=== PATIENT | female | born 1945 | race Caucasian/White ===

== ENCOUNTER 2023-12-10 15:06 | Inpatient (IN) | payer MEDICARE, OTHER, SELFPAY ==
--- NOTE | ~2023-12-10 | CT_ITS ---
EXAMINATION: CT ABDOMEN AND PELVIS WITHOUT CONTRAST CLINICAL INFORMATION: Fever with LFTs COMPARISON: CT chest 12/10/2023 TECHNIQUE: Multidetector volumetric imaging was performed from the superior aspect of the liver through the pubic symphysis. Sagittal and coronal reformatted images were obtained on the technologist's workstation. This CT examination was performed using dose optimization techniques as appropriate, variously including the following: *Automated exposure control *Adjustment of mA and/or kV according to patient size (this includes techniques or standardized protocols for targeted exams where dose is matched to indication/reason for exam; i.e. extremities or head) *Use of iterative reconstruction technique DLP: 599 mGy-cm FINDINGS: LUNG BASES: Small to moderate-sized left pleural effusion is again seen, unchanged when compared to 12/10/2023 LIVER, GALLBLADDER, AND BILIARY TREE: The liver is normal in and shape but demonstrates decreased attenuation consistent with hepatic steatosis. Liver border is minimally nodular raising the question of cirrhosis. No focal hepatic lesion or biliary ductal dilatation is present. The gallbladder is contracted but otherwise unremarkable with no evidence of radiopaque gallstones, gallbladder wall thickening, or obvious pericholecystic inflammatory changes. PANCREAS: Unremarkable. SPLEEN: Unremarkable. ADRENAL GLANDS: Unremarkable. KIDNEYS AND URETERS: The kidneys are normal in size, shape, and attenuation. No hydronephrosis, hydroureter, or calculi seen. No perinephric stranding. BLADDER: Bilateral hip prostheses obscure detail. GASTROINTESTINAL TRACT: Moderate-sized hiatal hernia is present with a large portion of the stomach above the diaphragm, unchanged from prior. The small and large bowel are unremarkable aside from colonic diverticulosis without diverticulitis. The appendix is not identified but there is no evidence of appendicitis.. ABDOMINAL WALL: There is a small right inguinal hernia containing only fat. Air in left abdominal and right abdominal wall likely from subcutaneous injections. LYMPH NODES: No retroperitoneal lymphadenopathy. VASCULAR: Minimal calcific atherosclerotic changes are present in the aorta and vessels. There is no evidence of an abdominal aortic aneurysm. PELVIC VISCERA: The uterus and adnexa are unremarkable. OSSEOUS STRUCTURES: Marked degenerative changes are present throughout the spine with scoliosis convex to the right. Bilateral hip prostheses are present. CT/CT abdomen pelvis wo IV con IMPRESSION: 1. A cause for the patient's fever and elevated LFTs has not been found. 2. Incidental note made of hepatic steatosis, possible cirrhosis, stable left pleural effusion, moderate-sized hiatal hernia, colonic diverticulosis without diverticulitis and degenerative changes in the spine with scoliosis. Fleischner guidelines were followed.
--- NOTE | ~2023-12-10 | CT_ITS ---
EXAMINATION: CT HEAD WITHOUT CONTRAST CLINICAL INFORMATION: Altered sensorium. COMPARISON: None available. TECHNIQUE: Contiguous axial imaging was performed from the skull base to vertex without intravenous administration of contrast. This CT examination was performed using dose optimization techniques as appropriate, variously including the following: *Automated exposure control *Adjustment of mA and/or kV according to patient size (this includes techniques or standardized protocols for targeted exams where dose is matched to indication/reason for exam; i.e. extremities or head) *Use of iterative reconstruction technique DLP: 847 mGy-cm FINDINGS: The ventricles and sulci are enlarged consistent with diffuse atrophy. No visualized masses or midline shift are seen. There is no intra-axial or extra-axial hemorrhage. There are no fluid collections. Decreased attenuation is seen in the periventricular white matter compatible with chronic small vessel ischemic disease. The baker-white discrimination is preserved. Parenchymal calcifications within the basal ganglia and brainstem. The included paranasal sinuses and mastoid air cells are well aerated. The calvarium is intact. CT/CT head/brain wo IV con IMPRESSION: No intracranial hemorrhage or mass effect. Generalized atrophy and chronic small vessel white matter ischemic changes.
--- NOTE | ~2023-12-10 | XR_ITS ---
EXAMINATION: XR WRIST, RIGHT CLINICAL INFORMATION: Fall, right wrist pain COMPARISON: None available. TECHNIQUE: PA, lateral, and oblique views of the right wrist. FINDINGS: The bones and soft tissues are normal. No fracture. Alignment is anatomic. There is narrowing of the radiocarpal joint. No erosions or abnormal soft tissue calcifications. XR/XR wrist RT 2V IMPRESSION: No acute process. Degenerative changes.
--- NOTE | ~2023-12-10 | XR_ITS ---
EXAMINATION: XR CHEST CLINICAL INFORMATION: Hypoxia COMPARISON: None available. TECHNIQUE: AP portable view of the chest was obtained. FINDINGS: There is elevation of the left hemidiaphragm with the appearance of a large hiatal hernia. An underlying region of airspace disease in this location cannot be excluded. There are small lung volumes. No pneumothorax identified. I cannot rule out a left pleural effusion on provided images. No evidence of pulmonary edema. Question calcific tendinitis versus old fracture involving the proximal right humerus. XR/XR chest 1V IMPRESSION: Small lung volumes with elevation of left hemidiaphragm and question large hiatal hernia. Left lower lobe disease not excluded. No evidence of pulmonary edema.
--- NOTE | ~2023-12-10 | CT_ITS ---
EXAMINATION: CT CHEST WITHOUT CONTRAST CLINICAL INFORMATION: Question pneumonia at left base COMPARISON: Chest radiograph earlier today TECHNIQUE: Multidetector volumetric CT imaging of the chest was done. Axial MIP volume rendering provided. Sagittal and coronal reformatted images were obtained. This CT examination was performed using dose optimization techniques as appropriate, variously including the following: *Automated exposure control *Adjustment of mA and/or kV according to patient size (this includes techniques or standardized protocols for targeted exams where dose is matched to indication/reason for exam; i.e. extremities or head) *Use of iterative reconstruction technique DLP: 376 mGy-cm FINDINGS: LUNGS AND PLEURA: There is marked motion artifact greatly interfering with diagnostic quality. Small to moderate-sized left pleural effusion is present with associated left lower lobe atelectasis/infiltrate. MEDIASTINUM: The mediastinum is normal. CORONARY ARTERY CALCIFICATION: None visualized on this study. AXILLA/CHEST WALL: No lymphadenopathy. UPPER ABDOMEN: Moderate-sized hiatal hernia is present. OSSEOUS STRUCTURES: There are acute minimally displaced fractures involving the left eighth and ninth lateral ribs. CT/CT chest wo IV con IMPRESSION: Acute left eighth and ninth rib fractures with small to moderate-sized left pleural effusion and associated left lower lobe atelectasis/infiltrate. Fleischner guidelines were followed.
--- NOTE | ~2023-12-10 | CT_ITS ---
EXAMINATION: CT THORACIC AND LUMBAR SPINE WITHOUT CONTRAST CLINICAL INFORMATION: Status post fall with back pain COMPARISON: None TECHNIQUE: A multidetector CT acquisition of the lumbar spine is obtained without contrast. This CT examination was performed using dose optimization techniques as appropriate, variously including the following: *Automated exposure control *Adjustment of mA and/or kV according to patient size (this includes techniques or standardized protocols for targeted exams where dose is matched to indication/reason for exam; i.e. extremities or head) *Use of iterative reconstruction technique DLP: 1419 mGycm FINDINGS: THORACIC: No acute fracture or chronic malalignment. Vertebral body heights are preserved. There is smooth mid to lower thoracic dextrocurvature and preserved sagittal alignment. Trace anterolisthesis at T1-T2. Multilevel disc height loss, most pronounced and severe along the concavity of the dextro scoliosis on the left at T6-T7 through T7-T8. Mineralization of the intervertebral disc spaces and ligamentum flavum. Please note canal patency is not well assessed on this examination due to inherent limitations of CT without intrathecal contrast. There are multilevel disc bulges/protrusions and facet arthrosis without high-grade spinal canal stenosis, within limitations of CT. Multilevel moderate to severe mid to lower thoracic neural foraminal stenosis, most pronounced at T7-T8. Redemonstrated intrathoracic herniation and organoaxial positioning of the stomach. Partially imaged small left pleural effusion. Calcific plaque of the aortic arch and carotid bifurcations. LUMBAR: No evidence of acute fracture or traumatic malalignment. S-shaped lumbar scoliosis with rightward curvature of the upper lumbar spine and leftward curvature of the lower lumbar spine. Slight right lateral listhesis at L3-L4. Preserved sagittal alignment. Trace retrolisthesis at L2-L3 and L4-L5. Multilevel disc desiccation with disc height loss most pronounced and severe along the concavity of the scoliotic curvature on the left at L2-L3 and L3-L4 and on the right at L4-L5 and L5-S1 with multilevel vacuum disc phenomenon and scattered endplate Schmorl's nodes. Please note canal patency is not well assessed on this examination due to inherent limitations of CT without intrathecal contrast. Within these limitations, multilevel degenerative changes with level by level detail are as follows: L1-L2: Disc osteophyte complex without spinal canal or neural foraminal stenosis. L2-L3: Disc osteophyte complex eccentric to the left with mild facet arthrosis. No spinal canal stenosis. Left subarticular zone narrowing. Moderate left neural foraminal stenosis with mass effect along the exiting left L2 nerve root. Minimal right neural foraminal narrowing. L3-L4: Disc osteophyte complex eccentric to the left with moderate to advanced facet arthrosis and ligamentum flavum thickening. Apparent mild to moderate spinal canal and subarticular zone narrowing. Severe left neural foraminal stenosis with compression of the exiting and extraforaminal left L3 nerve root and moderate right neural foraminal stenosis with lesser impingement upon the exiting right L3 nerve root. L4-L5: Disc osteophyte complex and moderate bilateral facet arthrosis. Apparent mild spinal canal and subarticular zone narrowing. Severe right neural foraminal stenosis with compression of the exiting and extraforaminal right L4 nerve root. Trace amount of extruded air is noted within the right neural foramen. Moderate to severe left neural foraminal stenosis with impingement upon the exiting left L4 nerve root. L5-S1: Disc osteophyte complex with prominent right greater than left lateral disc osteophytes and moderate facet arthrosis with ligamentum flavum thickening. Apparent mild spinal canal and subarticular zone narrowing with mass effect along the traversing S1 nerve roots. Moderate to severe right neural foraminal stenosis with impingement upon the exiting and extraforaminal right L5 nerve root and mild to moderate left neural foraminal stenosis with impingement upon the exiting/extra foraminal left L5 nerve root. There is moderate fatty atrophy of the paraspinal musculature. Colonic diverticulosis. Aortobiiliac calcific atherosclerosis. The abdominal aorta is of normal contour and caliber. Scattered aortobiiliac calcific atherosclerosis. Mild degenerative changes of the sacroiliac joints. Atrophy of the right and likely of the left gluteus minimus and right iliopsoas muscles. Streak artifact from bilateral hip arthroplasties. CT/CT thoracic spine wo IV con IMPRESSION: 1. No acute osseous injury or traumatic malalignment in the thoracolumbar spine. 2. Redemonstrated intrathoracic herniation and organoaxial positioning of the stomach. 3. Partially imaged small left pleural effusion. 4. Spondylitic disease thoracic and lumbar spine would be better assessed on MRI. In the thoracic spine, no significant spinal canal stenosis, noting multilevel [id number] neural foraminal narrowing in the mid to lower thoracic spine. S-shaped lumbar scoliosis with lumbar spondylosis contributing to up to apparent mild to moderate L3-L4 spinal canal stenosis. Subarticular zone narrowing at L5-S1 with impression upon the traversing S1 nerve roots. Multilevel moderate to severe neural foraminal narrowing in the mid to lower lumbar spine with mass effect along several exiting nerve roots.
[2023-12-10 15:17] VITALS: BP 140/80; BP 171/97; PULSE 106; PULSE 99; RESP 16; TEMP 38.6; O2SAT 91; O2SAT 97; BMI 29.6
[2023-12-10 15:29] VITALS: BP 171/97; PULSE 106; RESP 16; TEMP 38.6; O2SAT 95
--- NOTE | 2023-12-10 15:43 | PC.NURSE ---
Pt comes to ED today via EMS from nursing facility with suspicion of UTI/Sepsis. Pt was found by staff today to be confused and weak this morning--Pt with dementia as baseline. Febrile at 101.5 rectally. Pt is alert to day and person. Labs to be drawn. Awaiting ED provider.
[2023-12-10 16:00] VITALS: BP 171/97; PULSE 106; RESP 16; TEMP 38.6; O2SAT 95
--- NOTE | 2023-12-10 16:16 | ED.FEMALEGU ---
HPI - Female Genitourinary General Chief complaint: Urogenital-Female Stated complaint: Sepsis criteria, smells of UTI, hot to touch Time Seen by Provider: 12/10/23 16:10 History of Present Illness HPI Narrative: Patient is an 78-year-old female with a history of dementia presents today with having fever generalized malaise weakness confusion. Has a previous history of urinary tract infection in the past. No allergies noted. No coughing or congestion. Patient from long term. Related Data Allergies Allergy/AdvReac Type Severity Reaction Status Date / Time No Known Allergies Allergy Verified 12/10/23 15:22 Review of Systems Review of Systems: Positive generalized malaise weakness unable to provide detailed review of systems Yes all other systems are reviewed and are negative [facility] Past Medical History Attestation statement: The following information was validated with the patient. Social History Social History Smoked in Last 30 Days: No Use of substances other than those prescribed or required for medical reasons: No Advance Directives: Yes Advance Directives on File: Yes Advance Directives Date on File: 12/10/23 Do you have a plan to hurt others: No Plan Physical Exam Vital Signs: Vital Signs: Last Vital Signs Temp 98 F 12/10/23 17:33 Pulse 99 12/10/23 17:33 Resp 14 12/10/23 17:33 BP 137/55 L 12/10/23 17:33 Pulse Ox 93 12/10/23 17:33 O2 Del Method Room Air 12/10/23 17:33 BMI result Body Mass Index 29.6 Appearance: Alert. Oriented X3. No acute distress. Eyes: Pupils equal, round and reactive to light. ENT: Pharynx normal. Neck: Normal inspection. Neck supple. No lymph nodes noted. No crepitus CVS: Normal heart rate and rhythm. Pulses normal. Normal S1 and S2 Respiratory: No respiratory distress. Breath sounds normal. No Wheezing. No rales Abdomen: Soft and nontender. No rigidity. No distention. good BS x4 Skin: Skin warm and dry. Normal skin color. Normal skin turgor. Extremities: No lower extremity edema. Neurovascular intact to all extremities. No Lacerations. No Rash Neuro: Oriented X 1. No motor deficit. No sensory deficit. Moving all extermities. No slurred speech Medications Administered Discontinued Medications Generic Name Dose Route Start Last Admin Trade Name Gabo PRN Reason Stop Dose Admin Acetaminophen 975 mg 12/10/23 16:14 12/10/23 16:42 Acetaminophen 325 Mg Tablet PO 12/10/23 16:15 975 mg ONCE ONE Administration Sodium Chloride 1,000 mls @ 999 mls/hr 12/10/23 16:15 12/10/23 18:24 Ns IV 12/10/23 17:15 Infused .Q1H1M KEKE Infusion Ceftriaxone Sodium 1 gm/ 50 mls @ 100 mls/hr 12/10/23 16:16 12/10/23 18:25 Sodium Chloride IV 12/10/23 16:45 Infused ONCE ONE Infusion Medical Decision Making Medical Decision Making [facility] Narrative: Patient presented with fever generalized malaise weakness. Urine did not show any acute evidence of infection. Patient's lactate is less than 2 there is no evidence for severe sepsis. IV fluid was given chest x-ray showed a question infiltrate. A CT of the chest was done. The CT was positive for a left lower lobe infiltrate. Patient's curb 65 score is high as patient is 78 years old, has confusion. Given patient has an infiltrate will admit patient for pneumonia. Hospitalist consulted on the case. Patient's COVID flu RSV were all negative. Differential Diagnosis Differential Diagnoses: The differential diagnosis associated with the presentation includes Pneumonia UTI Admission/Observation Consideration of admission/observation: Escalation of care including admission/observation considered Consult Healthcare Provider Management of the patient was discussed with: Hospitalist Lab Data [facility] Lab Attestation statement: I reviewed the patient's lab results. 12/10/23 16:19 12/10/23 16:19 Labs: Lab Results 12/10/23 12/10/23 12/10/23 Range/Units 16:18 16:19 16:45 WBC 13.8 H (4.8-10.8) X10*3/uL RBC 3.43 L (4.20-5.50) X10*6/uL Hgb 12.3 (12.0-16.0) g/dl Hct 36.5 L (37.0-47.0) % MCV 106.4 H (80.0-98.0) fL MCH 35.9 H (27.0-33.0) pg MCHC 33.7 (31.0-35.0) g/dl RDW 13.0 (11.0-16.0) % Plt Count 345 (160-400) X10*3/uL MPV 9.5 (9.4-12.3) fL Immature Gran % (Auto) 0.5 H (0.0-0.4) % Neut % (Auto) 85.3 H (45-73) % Lymph % (Auto) 4.1 L (20-40) % [place] % (Auto) 9.9 (2-11) % Eos % (Auto) 0.1 (0-4) % Baso % (Auto) 0.1 (0-2) % Lymph # (Auto) 0.6 L (1.2-4.9) X10*3/uL [place] # (Auto) 1.4 H (0.1-1.2) X10*3/uL Eos # (Auto) 0.0 (0.0-0.4) X10*3/uL Baso # (Auto) 0.0 (0.0-0.2) X10*3/uL Abs Immat Gran (auto) 0.07 H (0.00-0.03) X10*3/uL Absolute Neuts (auto) 11.7 H (2.0-8.3) x10*3/uL Absolute Nucleated RBC 0.000 (0.0-0.012) X10*3/uL Nucleated RBC % (auto) 0.0 (0.0-0.2) /100WBC PT 12.1 (11.1-13.3) SEC INR 1.0 (0.9-1.1) APTT 29.0 (26.0-36.8) SEC Sodium 138 (135-145) mmol/L Potassium 4.4 (3.3-5.1) mmol/L Chloride 102 (96-108) mmol/L Carbon Dioxide 25 (22-29) mmol/L Anion Gap 15 (12-20) BUN 16 (9-16) mg/dL Creatinine 0.72 (0.5-1.4) mg/dL Estim Creat Clear Calc 65.3 Estimated GFR > 60 Random Glucose 118 H (60-115) mg/dL Lactic Acid 1.0 (0.5-2.0) mmol/L Calcium 9.5 (8.4-10.2) mg/dL Total Bilirubin 1.1 H (0.0-1.0) mg/dL Urine Color Dark Yellow Urine Appearance Clear Urine pH 6.0 (5.0-9.0) Ur Specific [place] 1.025 (1.005-1.025) Urine Protein 30 (1+) H (Neg-Trace) mg/dL Urine Glucose (UA) Negative (Negative) mg/dL Urine Ketones 15 (Negative) mg/dL Urine Blood Negative (Negative) Urine Nitrite Negative (Negative) Ur Leukocyte Esterase Negative (Negative) Urine RBC 0-2 (0-2) /HPF Urine WBC 0-5 (0-5) /HPF Ur Squamous Epith Cells 3-5 (0-2) /HPF Urine Bacteria None Seen (None Seen) Hyaline Casts 0-2 (0-2) /LPF Influenza Type A (PCR) NEGATIVE (Negative) Influenza Type B (PCR) NEGATIVE (Negative) RSV RNA Qual (PCR) NEGATIVE (Negative) SARS-CoV-2 RNA (RT-PCR) NEGATIVE (Negative) Independent Interpretation I performed an independent interpretation of an: EKG, Plain X-Ray (Grossly negative) and CT Scan (I reviewed CT scan of the chest which showed a possible infiltrate) Radiology Impression Discussion of test interpretation with radiology: I have reviewed the radiologist's reading. External Record Review External record reviewed: Outpatient record Chronic Conditions Dementia Critical Care Time Critical Care Time Critical Care Time: No Discharge Plan Discharge Clinical Impression: Urinary tract infection Patient Disposition: Admitted As Inpatient Print Language: Estonian
[2023-12-10 16:27] LABS: Basophils Percent Auto 0.1 % (0-2); Eosinophils Percent Auto 0.1 % (0-4); Hematocrit 36.5 % (37.0-47.0); Hemoglobin 12.3 g/dl (12.0-16.0); Imm Gran Abs Auto 0.07 X10*3/uL (0.00-0.03); Imm Gran Pct Auto 0.5 % (0.0-0.4); Lymphocytes Absolute Auto 0.6 X10*3/uL (1.2-4.9); Lymphocytes Percent Auto 4.1 % (20-40); MANUAL DIFF FLAG NO; Mean Corpuscular HGB Conc 33.7 g/dl (31.0-35.0); Mean Corpuscular Hemoglobin 35.9 pg (27.0-33.0); Mean Corpuscular Volume 106.4 fL (80.0-98.0); Mean Platelet Volume 9.5 fL (9.4-12.3); Monocytes Absolute Auto 1.4 X10*3/uL (0.1-1.2); Monocytes Percent Auto 9.9 % (2-11); Neutrophils Absolute Auto 11.7 x10*3/uL (2.0-8.3); Neutrophils Percent Auto 85.3 % (45-73); Platelet Count 345 X10*3/uL (160-400); Red Blood Count 3.43 X10*6/uL (4.20-5.50); White Blood Count 13.8 X10*3/uL (4.8-10.8)
[2023-12-10 16:28] LABS: Appearance Urine Clear; Color Urine Dark Yellow; Glucose Urine UA Negative (Negative); Leukocyte Esterase Urine Negative (Negative); Nitrite Urine Negative (Negative); Specific Gravity - Urine 1.025 (1.005-1.025); UMIC TRIGGER UACC YES; Urine Blood Negative (Negative); Urine Ketones 15 mg/dL (Negative); Urine Protein 30 (1+) mg/dL (Neg-Trace)
[2023-12-10 16:33] LABS: Bacteria Urine None Seen (None Seen); Hyaline Casts Urine 0-2 /LPF (0-2); RBC Urine 0-2 /HPF (0-2); WBC Urine 0-5 /HPF (0-5)
[2023-12-10] MEDS: 0.9 % Sodium Chloride 1,000 ML 999 ML IV (16:41)
[2023-12-10 16:42] LABS: Prothrombin Time 12.1 SEC (11.1-13.3)
[2023-12-10] MEDS: Acetaminophen 325 MG TABLET 975 MG PO (16:42)
[2023-12-10 16:43] LABS: Anion Gap 15 (12-20); Bilirubin Total 1.1 mg/dL (0.0-1.0); Blood Urea Nitrogen 16 mg/dL (9-16); Calcium 9.5 mg/dL (8.4-10.2); Carbon Dioxide 25 mmol/L (22-29); Chloride 102 mmol/L (96-108); Creatinine Clr Calc Pharmacy 65.3; Estimated Glomerular Filt Rate > 60; Glucose Random 118 mg/dL (60-115); Potassium 4.4 mmol/L (3.3-5.1); Sodium 138 mmol/L (135-145)
[2023-12-10 16:47] VITALS: BP 188/85; PULSE 99; RESP 18; O2SAT 94
[2023-12-10] MEDS: cefTRIAXone sodium 1 GM in 0.9 % Sodium Chloride 50 ML IV (16:48)
[2023-12-10 17:33] VITALS: BP 137/55; PULSE 99; RESP 14; TEMP 36.6; O2SAT 93
[2023-12-10 17:49] LABS: Influenza A PCR NEGATIVE (Negative); Influenza B PCR NEGATIVE (Negative); Resp Syncy Virus RNA Qual PCR NEGATIVE (Negative); SARS COV2 PCR INHOUSE NEGATIVE (Negative)
--- NOTE | 2023-12-10 22:09 | P.HPHOSP_ITS ---
History of Present Illness Date of Service: 12/10/23 Chief Complaint: Fever and confusion This is a 78-year-old female with pertinent history of Alzheimer's dementia, hypothyroidism, gastroesophageal reflux who was sent from independent living facility for evaluation of fever and confusion. Patient does not know why she is at the facility. Unable to provide history. Patient is only oriented to self. Disoriented to place and time. Unable to obtain review of systems. Does have a history of UTI. In the emergency department, patient was found to be septic and imaging concerning for pneumonia with effusion. Patient was given IV crystalloids and initiated on empiric IV antibiotics in the ER. Review of Systems 2 Review of Systems: Yes Unobtainable due to mental condition and Unobtainable due to mental status PMFSH Medical History Acute encephalopathy Pneumonia Sepsis Pertinent family history: Unable to obtain Social History Smoked in Last 30 Days: No Use of substances other than those prescribed or required for medical reasons: No Advance Directives: Yes Advance Directives on File: Yes Advance Directives Date on File: 12/10/23 Do you have a plan to hurt others: No Plan Meds Allergies Allergy/AdvReac Type Severity Reaction Status Date / Time No Known Allergies Allergy Verified 12/10/23 15:22 Physical Exam 2 Vital Signs and Narrative: Vital Signs: Last Vital Signs Temp 98 F 12/10/23 17:33 Pulse 99 12/10/23 17:33 Resp 14 12/10/23 17:33 BP 137/55 L 12/10/23 17:33 Pulse Ox 93 12/10/23 17:33 O2 Del Method Room Air 12/10/23 17:33 BMI result Body Mass Index 29.6 Elderly female Neck supple, no JVD Regular rate and rhythm, S1-S2 heard Left-sided crackles present Abdomen soft nontender, no guarding, no rigidity Patient is awake, alert and oriented to self, disoriented to place, time and person ; no focal motor deficit Psych: Normal mood No pedal edema Results Labs 12/10/23 16:19 12/10/23 16:19 Labs: Laboratory Results - last 24 hr 12/10/23 12/10/23 12/10/23 16:18 16:19 16:45 MCV 106.4 H MCH 35.9 H MCHC 33.7 RDW 13.0 Plt Count 345 MPV 9.5 Immature Gran % (Auto) 0.5 H Neut % (Auto) 85.3 H Lymph % (Auto) 4.1 L [place] % (Auto) 9.9 Eos % (Auto) 0.1 Baso % (Auto) 0.1 Lymph # (Auto) 0.6 L [place] # (Auto) 1.4 H Eos # (Auto) 0.0 Baso # (Auto) 0.0 Abs Immat Gran (auto) 0.07 H Absolute Neuts (auto) 11.7 H Absolute Nucleated RBC 0.000 Nucleated RBC % (auto) 0.0 PT 12.1 INR 1.0 APTT 29.0 Anion Gap 15 Estim Creat Clear Calc 65.3 Estimated GFR > 60 Random Glucose 118 H Lactic Acid 1.0 Calcium 9.5 Total Bilirubin 1.1 H Urine Color Dark Yellow Urine Appearance Clear Urine pH 6.0 Ur Specific [place] 1.025 Urine Protein 30 (1+) H Urine Glucose (UA) Negative Urine Ketones 15 Urine Blood Negative Urine Nitrite Negative Ur Leukocyte Esterase Negative Urine RBC 0-2 Urine WBC 0-5 Ur Squamous Epith Cells 3-5 Urine Bacteria None Seen Hyaline Casts 0-2 Influenza Type A (PCR) NEGATIVE Influenza Type B (PCR) NEGATIVE RSV RNA Qual (PCR) NEGATIVE SARS-CoV-2 RNA (RT-PCR) NEGATIVE Imaging Radiologist's Impressions: Impressions Chest X-Ray 12/10/23 15:45 IMPRESSION: Small lung volumes with elevation of left hemidiaphragm and question large hiatal hernia. Left lower lobe disease not excluded. No evidence of pulmonary edema. Chest CT 12/10/23 19:35 IMPRESSION: Acute left eighth and ninth rib fractures with small to moderate-sized left pleural effusion and associated left lower lobe atelectasis/infiltrate. Fleischner guidelines were followed. Assessment and Plan (1) Sepsis: Status: Acute (2) Pneumonia: Status: Acute (3) Acute encephalopathy: Status: Acute Plan This is a 78-year-old female with pertinent history of Alzheimer's dementia, hypothyroidism, gastroesophageal reflux who was sent from independent living facility for evaluation of fever and confusion. #. Sepsis due to left-sided pneumonia: Resuscitated with IV crystalloids. Initiating empiric IV ceftriaxone and IV azithromycin. Lactic acid and blood culture obtained. Also has a left pleural effusion, likely parapneumonic. May need thoracic surgery consult if does not improve. #. Acute metabolic encephalopathy in the setting of above: Monitor mentation #. Gastroesophageal reflux disease: On PPI #. Mixed hyperlipidemia: On statin #. Hypothyroidism: On Synthroid #. Alzheimer's dementia: Maintain sleep-wake cycle Med rec pending DVT prophylaxis: Lovenox Full code Admit as inpatient and will require two night minimum hospital stay for IV antibiotics (as above), which is not possible in a lesser acute setting. Quality Stroke Does the patient have a stroke diagnosis?: No VTE Prior VTE?: No VTE Risk Level:: Medical - moderate - high VTE Device Contraindication: Treatment Not Indicated VTE Drug Contraindication: N/A - Med Ordered
[2023-12-10] MEDS: 0.9 % Sodium Chloride Flush 3 ML SYRINGE IVFLUSH (23:47)
[2023-12-10] MEDS: Azithromycin 500 MG in 0.9 % Sodium Chloride 250 ML 125 MG IV (23:47)
[2023-12-10] MEDS: Enoxaparin Sodium 40 MG/0.4 ML SYRINGE SUBCUT (23:47)
[2023-12-10 23:56] VITALS: BP 164/67; PULSE 95; RESP 20; TEMP 36.8; O2SAT 94
[2023-12-11] VITALS: TEMP 37.9
[2023-12-11 01:30] VITALS: BP 146/83; PULSE 95; RESP 20; TEMP 37.4; O2SAT 94
[2023-12-11 06:05] LABS: MANUAL DIFF FLAG NO
[2023-12-11 06:07] LABS: Basophils Percent Auto 0.3 % (0-2); Hematocrit 35.2 % (37.0-47.0); Imm Gran Abs Auto 0.04 X10*3/uL (0.00-0.03); Imm Gran Pct Auto 0.3 % (0.0-0.4); Lymphocytes Absolute Auto 0.7 X10*3/uL (1.2-4.9); Lymphocytes Percent Auto 5.9 % (20-40); Mean Corpuscular HGB Conc 34.1 g/dl (31.0-35.0); Mean Corpuscular Hemoglobin 35.6 pg (27.0-33.0); Mean Corpuscular Volume 104.5 fL (80.0-98.0); Mean Platelet Volume 10.1 fL (9.4-12.3); Monocytes Absolute Auto 1.5 X10*3/uL (0.1-1.2); Monocytes Percent Auto 11.6 % (2-11); Neutrophils Absolute Auto 10.2 x10*3/uL (2.0-8.3); Neutrophils Percent Auto 81.9 % (45-73); Platelet Count 315 X10*3/uL (160-400); Red Blood Count 3.37 X10*6/uL (4.20-5.50); Red Cell Distribution Width 12.9 % (11.0-16.0); White Blood Count 12.5 X10*3/uL (4.8-10.8)
[2023-12-11 06:46] LABS: Anion Gap 14 (12-20); Blood Urea Nitrogen 9 mg/dL (9-16); Carbon Dioxide 22 mmol/L (22-29); Chloride 104 mmol/L (96-108); Creatinine Clr Calc Pharmacy 70.2; Estimated Glomerular Filt Rate > 60; Glucose Random 120 mg/dL (60-115); Potassium 3.6 mmol/L (3.3-5.1); Sodium 136 mmol/L (135-145)
[2023-12-11 06:47] LABS: Calcium 8.8 mg/dL (8.4-10.2)
[2023-12-11 07:57] VITALS: BP 149/75; PULSE 90; RESP 18; TEMP 37.4; O2SAT 95
[2023-12-11 08:59] LABS: Alanine Aminotransferase 15 U/L (0-31); Albumin Level 3.6 g/dL (3.5-5.0); Alkaline Phosphatase 77 U/L (39-117); Aspartate Amino Transferase 22 U/L (5-31); Bilirubin Direct 0.4 mg/dL (0.0-0.5); Bilirubin Total 0.9 mg/dL (0.0-1.0); Total Protein 6.9 g/dL (6.5-8.0)
--- NOTE | 2023-12-11 09:08 | MHC.CM.PN ---
Addendum entered by Zulma Baugh RN 12/11/23 12:26: [facility] will hold a bed for patient per ARRON Persaud. If patient dc's over the weekend call Lauryn Cortes nursing jewel supervisor 7a-7p @ [phone]. Addendum entered by Zulma Baugh RN 12/11/23 12:09: Referral faxed to [facility] @ [phone]. Liaison is Jeannette [phone]. Addendum entered by Zulma Baugh RN 12/11/23 11:36: CM spoke w/ Georgiana Burton @ [facility] [phone]. Georgiana requesting referral to [facility]. Patient has 7 complimentary days to use prior to return to [facility]. Original Note: RESEARCH ASSOCIATE PROFESSOR completed w/ daughter/HCP Gunjan via telephone. Patient w/ dx lewy body dementia. IMM verbally delivered. Copy left at bedside. Patient comes from [facility]. Daughter reports she ambulates w/ a walker, but has needed 1 assist to get up lately. Staff assists w/ ADL's. PCP: Abigail Srinivasan CHIEF OF PRODUCTION HCP on file. DP: Goal is return to [facility] via family transport. May need PT eval. CM will continue to follow.
[2023-12-11] MEDS: 0.9 % Sodium Chloride Flush 3 ML SYRINGE IVFLUSH ×2 (09:17→17:13)
--- NOTE | 2023-12-11 09:44 | P.PNIM_ITS ---
Subjective Subjective Date of Service: 12/11/23 Interval History: confused Physical Exam 2 Vital Signs: Vital Signs: Last Vital Signs Temp 99.4 F 12/11/23 07:57 Pulse 90 12/11/23 07:57 Resp 18 12/11/23 07:57 BP 149/75 H 12/11/23 07:57 Pulse Ox 95 12/11/23 07:57 O2 Del Method Room Air 12/11/23 07:57 BMI result Body Mass Index 29.6 lethargic oriented to person only, poor insight, left side tender Objective Data Active Medications Acetaminophen (Acetaminophen 325 Mg Tablet) 650 mg PO Q6H PRN PRN Reason: Pain, Mild (Pain Scale 1-3), fever or headache Calcium Carbonate (Calcium Carbonate 750 Mg Tab.Chew) 750 mg PO Q4H PRN PRN Reason: Heartburn Enoxaparin Sodium (Enoxaparin Sodium 40 Mg/0.4 Ml Syringe) 40 mg SUBCUT Q24H [facility] Last Admin: 12/10/23 23:47 Dose: 40 mg Documented By: NATALYA Ceftriaxone Sodium 1 gm/ (Sodium Chloride) 50 mls @ 100 mls/hr IV Q24H [facility] Azithromycin 500 mg/ Sodium (Chloride) 250 mls @ 125 mls/hr IV Q24H [facility] Last Infusion: 12/11/23 01:54 Dose: Infused Documented By: ROMIE Magnesium Hydroxide (Milk Of Magnesia 30 Ml Oral.Susp) 30 ml PO DAILY PRN PRN Reason: Constipation Melatonin (Melatonin 3 Mg Tablet) 6 mg PO BEDTIME PRN PRN Reason: Insomnia Omeprazole (Omeprazole 20 Mg Capsule.Dr) 20 mg PO DAILY [facility] Ondansetron HCl (Ondansetron Hcl 4 Mg/2 Ml Vial) 4 mg IVPUSH Q8H PRN PRN Reason: Nausea and Vomiting Sodium Chloride (0.9 % Sodium Chloride Flush 3 Ml Syringe) 3 ml IVFLUSH QSHIFT [facility] Last Admin: 12/11/23 09:17 Dose: 3 ml Documented By: ELISA Labs 12/11/23 05:15 12/11/23 05:15 Labs: Laboratory Results - last 24 hr 12/10/23 12/10/23 12/10/23 16:18 16:19 16:45 MCV 106.4 H MCH 35.9 H MCHC 33.7 RDW 13.0 Plt Count 345 MPV 9.5 Immature Gran % (Auto) 0.5 H Neut % (Auto) 85.3 H Lymph % (Auto) 4.1 L Tra[place] % (Auto) 9.9 Eos % (Auto) 0.1 Baso % (Auto) 0.1 Lymph # (Auto) 0.6 L [place] # (Auto) 1.4 H Eos # (Auto) 0.0 Baso # (Auto) 0.0 Abs Immat Gran (auto) 0.07 H Absolute Neuts (auto) 11.7 H Absolute Nucleated RBC 0.000 Nucleated RBC % (auto) 0.0 PT 12.1 INR 1.0 APTT 29.0 Anion Gap 15 Estim Creat Clear Calc 65.3 Estimated GFR > 60 Random Glucose 118 H Lactic Acid 1.0 Calcium 9.5 Total Bilirubin 1.1 H Direct Bilirubin AST ALT Alkaline Phosphatase Total Protein Albumin Urine Color Dark Yellow Urine Appearance Clear Urine pH 6.0 Ur Specific [place] 1.025 Urine Protein 30 (1+) H Urine Glucose (UA) Negative Urine Ketones 15 Urine Blood Negative Urine Nitrite Negative Ur Leukocyte Esterase Negative Urine RBC 0-2 Urine WBC 0-5 Ur Squamous Epith Cells 3-5 Urine Bacteria None Seen Hyaline Casts 0-2 Influenza Type A (PCR) NEGATIVE Influenza Type B (PCR) NEGATIVE RSV RNA Qual (PCR) NEGATIVE SARS-CoV-2 RNA (RT-PCR) NEGATIVE 12/11/23 05:15 MCV 104.5 H MCH 35.6 H MCHC 34.1 RDW 12.9 Plt Count 315 MPV 10.1 Immature Gran % (Auto) 0.3 Neut % (Auto) 81.9 H Lymph % (Auto) 5.9 L [place] % (Auto) 11.6 H Eos % (Auto) 0.0 Baso % (Auto) 0.3 Lymph # (Auto) 0.7 L [place]ill # (Auto) 1.5 H Eos # (Auto) 0.0 Baso # (Auto) 0.0 Abs Immat Gran (auto) 0.04 H Absolute Neuts (auto) 10.2 H Absolute Nucleated RBC 0.000 Nucleated RBC % (auto) 0.0 PT INR APTT Anion Gap 14 Estim Creat Clear Calc 70.2 Estimated GFR > 60 Random Glucose 120 H Lactic Acid Calcium 8.8 D Total Bilirubin 0.9 Direct Bilirubin 0.4 AST 22 ALT 15 Alkaline Phosphatase 77 Total Protein 6.9 Albumin 3.6 Urine Color Urine Appearance Urine pH Ur Specific [place] Urine Protein Urine Glucose (UA) Urine Ketones Urine Blood Urine Nitrite Ur Leukocyte Esterase Urine RBC Urine WBC Ur Squamous Epith Cells Urine Bacteria Hyaline Casts Influenza Type A (PCR) Influenza Type B (PCR) RSV RNA Qual (PCR) SARS-CoV-2 RNA (RT-PCR) 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, hypothyroid, gerd, presented with ams, fever sepsis due to pneumonia complicated by acute metabolic encephalopathy due to recent 9th and 10th rib fractures from frequent falls due to dementia amanda [place] follow up cultures CTH for recent falls lewy body and likely etoh dementia at risk for delerium, monitor etoh depenedence monitor for withdrawal hypothryoid synthroid dvt prophylaxis - lovenox full code reason for continued hospitalization: ams, fevers Quality Stroke Does the patient have a stroke diagnosis?: No VTE Prior VTE?: No VTE Risk Level:: Medical - moderate - high VTE Device Contraindication: Treatment Not Indicated VTE Drug Contraindication: N/A - Med Ordered
--- NOTE | 2023-12-11 09:54 | PHA.MEDREC ---
Addendum entered by Balbina Escobar RPh 12/11/23 10:06: reviewed Original Note: Pharmacy Consult ? Medication Reconciliation Pharmacy has completed the medication reconciliation. Obtained med list from patient's living facility from nursing. Fixed doses to match history.
[2023-12-11] MEDS: Ferrous Sulfate 324 MG TABLET.DR PO (12:08)
--- NOTE | 2023-12-11 13:17 | MHC.CLN ---
NUTRITION CONSULT FOR SKIN INTEGRITY. PATIENT WITH REDNESS TO BUTTOCK. NO OPEN AREAS NOTE. DIET=REGULAR. NO ADDITIONAL NUTRITION INTERVENTIONS AT THIS TIME
[2023-12-11 15:16] VITALS: BP 149/81; PULSE 98; RESP 16; TEMP 36.8; O2SAT 95
[2023-12-11] MEDS: cefTRIAXone sodium 1 GM in 0.9 % Sodium Chloride 50 ML IV (17:13)
--- NOTE | 2023-12-11 18:36 | PC.NURSE ---
Pt's son brought in medical records from another facility. Spoke to [place] in medical records and was told to send them to switchboard labeled with patient's name.
[2023-12-11 21:53] VITALS: BP 160/75; PULSE 100; RESP 16; TEMP 37; O2SAT 93
[2023-12-11] MEDS: Nystatin Cream 15 GM TUBE 1 APPL TOPICAL (21:56)
[2023-12-11] MEDS: Enoxaparin Sodium 40 MG/0.4 ML SYRINGE SUBCUT (22:01)
[2023-12-11] MEDS: Azithromycin 500 MG in 0.9 % Sodium Chloride 250 ML 125 MG IV (22:07)
[2023-12-11 23:49] VITALS: TEMP 36.8
[2023-12-12] MEDS: Levothyroxine Sodium 88 MCG TABLET PO (06:10)
[2023-12-12 07:06] LABS: Hematocrit 35.6 % (37.0-47.0); Mean Corpuscular HGB Conc 33.7 g/dl (31.0-35.0); Mean Corpuscular Hemoglobin 35.2 pg (27.0-33.0); Mean Corpuscular Volume 104.4 fL (80.0-98.0); Mean Platelet Volume 10.3 fL (9.4-12.3); Platelet Count 311 X10*3/uL (160-400); Red Blood Count 3.41 X10*6/uL (4.20-5.50); Red Cell Distribution Width 12.9 % (11.0-16.0); White Blood Count 15.4 X10*3/uL (4.8-10.8)
[2023-12-12 07:42] LABS: Anion Gap 14 (12-20); Blood Urea Nitrogen 8 mg/dL (9-16); Calcium 8.9 mg/dL (8.4-10.2); Carbon Dioxide 22 mmol/L (22-29); Chloride 103 mmol/L (96-108); Creatinine Clr Calc Pharmacy 71.2; Estimated Glomerular Filt Rate > 60; Glucose Fasting 149 mg/dL (60-99); Potassium 3.2 mmol/L (3.3-5.1); Sodium 136 mmol/L (135-145)
[2023-12-12 08:00] VITALS: BP 142/72; PULSE 95; RESP 17; TEMP 37.1; O2SAT 95
[2023-12-12] MEDS: Atorvastatin Calcium 40 MG TABLET PO (08:40)
[2023-12-12] MEDS: Omeprazole 20 MG CAPSULE.DR PO (08:40)
[2023-12-12] MEDS: Cholecalciferol (Vitamin D3) 25 MCG TABLET PO (08:40)
[2023-12-12] MEDS: Nystatin Cream 15 GM TUBE 1 APPL TOPICAL ×2 (08:41→22:11)
[2023-12-12] MEDS: Donepezil HCl 5 MG TABLET PO (08:41)
[2023-12-12] MEDS: 0.9 % Sodium Chloride Flush 3 ML SYRINGE IVFLUSH ×3 (08:41→22:17)
--- NOTE | 2023-12-12 09:16 | HO.PM.IMPN ---
Subjective Subjective Date of Service: 12/12/23 Interval History: confused Physical Exam Vital Signs: Vital Signs: Last Vital Signs Temp 98.7 F 12/12/23 08:00 Pulse 95 12/12/23 08:00 Resp 17 12/12/23 08:00 BP 160/75 H 12/11/23 21:53 Pulse Ox 95 12/12/23 08:00 O2 Del Method Room Air 12/12/23 08:00 BMI result Body Mass Index 29.6 lethargic oriented to person only, poor insight, left side tender Objective Data Active Medications Acetaminophen (Acetaminophen 325 Mg Tablet) 650 mg PO Q6H PRN PRN Reason: Pain, Mild (Pain Scale 1-3), fever or headache Atorvastatin Calcium (Atorvastatin Calcium 40 Mg Tablet) 40 mg PO DAILY [facility] Last Admin: 12/12/23 08:40 Dose: 40 mg Documented By: DOMI Calcium Carbonate (Calcium Carbonate 750 Mg Tab.Chew) 750 mg PO Q4H PRN PRN Reason: Heartburn Donepezil HCl (Donepezil Hcl 5 Mg Tablet) 5 mg PO DAILY [facility] Last Admin: 12/12/23 08:41 Dose: 5 mg Documented By: DOMI Enoxaparin Sodium (Enoxaparin Sodium 40 Mg/0.4 Ml Syringe) 40 mg SUBCUT Q24H [facility] Last Admin: 12/11/23 22:01 Dose: 40 mg Documented By: LEXII Ferrous Sulfate (Ferrous Sulfate 324 Mg Tablet.Dr) 324 mg PO Q48H [facility] Last Admin: 12/11/23 12:08 Dose: 324 mg Documented By: ELISA Ceftriaxone Sodium 1 gm/ (Sodium Chloride) 50 mls @ 100 mls/hr IV Q24H [facility] Last Infusion: 12/11/23 18:07 Dose: Infused Documented By: ELISA Azithromycin 500 mg/ Sodium (Chloride) 250 mls @ 125 mls/hr IV Q24H [facility] Last Infusion: 12/12/23 00:14 Dose: Infused Documented By: LEXII Levothyroxine Sodium (Levothyroxine Sodium 88 Mcg Tablet) 88 mcg PO DAILY@0600 [facility] Last Admin: 12/12/23 06:10 Dose: 88 mcg Documented By: LEXII Magnesium Hydroxide (Milk Of Magnesia 30 Ml Oral.Susp) 30 ml PO DAILY PRN PRN Reason: Constipation Melatonin (Melatonin 3 Mg Tablet) 6 mg PO BEDTIME PRN PRN Reason: Insomnia Nystatin (Nystatin Cream 15 Gm Tube) 1 appl TOPICAL BID [facility]; Protocol Last Admin: 12/12/23 08:41 Dose: 1 appl Documented By: DOMI Omeprazole (Omeprazole 20 Mg Capsule.Dr) 20 mg PO DAILY [facility] Last Admin: 12/12/23 08:40 Dose: 20 mg Documented By: DOMI Ondansetron HCl (Ondansetron Hcl 4 Mg/2 Ml Vial) 4 mg IVPUSH Q8H PRN PRN Reason: Nausea and Vomiting Potassium Chloride (Potassium Chloride Er 20 Meq Tab.Er.Prt) 40 meq PO ONCE ONE Stop: 12/12/23 09:15 Sodium Chloride (0.9 % Sodium Chloride Flush 3 Ml Syringe) 3 ml IVFLUSH QSHIFT [facility] Last Admin: 12/12/23 08:41 Dose: 3 ml Documented By: DOMI Vitamin D (Cholecalciferol (Vitamin D3) 25 Mcg Tablet) 25 mcg PO DAILY [facility] Last Admin: 12/12/23 08:40 Dose: 25 mcg Documented By: DOMI Labs 12/12/23 05:36 12/12/23 05:36 Labs: Laboratory Results - last 24 hr 12/12/23 05:36 MCV 104.4 H MCH 35.2 H MCHC 33.7 RDW 12.9 Plt Count 311 MPV 10.3 Absolute Nucleated RBC 0.000 Nucleated RBC % (auto) 0.0 Anion Gap 14 Estim Creat Clear Calc 71.2 Estimated GFR > 60 Fasting Glucose 149 H Calcium 8.9 Microbiology Microbiology Results: Microbiology 12/10/23 16:45 Blood Culture - Preliminary Blood - Venous No growth after 24 hours. 12/10/23 16:19 Blood Culture - Preliminary Blood - Venous No growth after 24 hours. 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, hypothyroid, gerd, presented with ams, fever sepsis due to pneumonia complicated by acute metabolic encephalopathy due to recent 9th and 10th rib fractures from frequent falls due to dementia amanda [place] follow up cultures follow up cth macrocytosis check tsh, b12, folate lewy body and likely etoh dementia at risk for delerium, monitor etoh depenedence monitor for withdrawal hypothryoid synthroid dvt prophylaxis - lovenox full code reason for continued hospitalization: ams, fevers Quality Stroke Does the patient have a stroke diagnosis?: No VTE Prior VTE?: No VTE Risk Level:: Medical - moderate - high VTE Device Contraindication: Treatment Not Indicated VTE Drug Contraindication: N/A - Med Ordered
[2023-12-12] MEDS: Potassium Chloride Packet 20 MEQ PACKET 40 MEQ PO (11:11)
[2023-12-12] MEDS: Acetaminophen 325 MG TABLET 650 MG PO (11:11)
[2023-12-12 15:16] VITALS: BP 144/79; PULSE 100; RESP 16; TEMP 37; O2SAT 95
[2023-12-12] MEDS: cefTRIAXone sodium 1 GM in 0.9 % Sodium Chloride 50 ML IV (16:13)
[2023-12-12] MEDS: Enoxaparin Sodium 40 MG/0.4 ML SYRINGE SUBCUT (22:13)
[2023-12-12] MEDS: Azithromycin 500 MG in 0.9 % Sodium Chloride 250 ML 125 MG IV (22:18)
[2023-12-12 22:53] VITALS: BP 137/72; PULSE 100; RESP 17; TEMP 37.3; O2SAT 94
[2023-12-13] VITALS (8 sets, daily range): BP systolic 134–180; BP diastolic 60–93; PULSE 88–100; RESP 14–17; TEMP 36.6–38.7; O2SAT 94–97
[2023-12-13] MEDS: Acetaminophen 325 MG TABLET 650 MG PO ×3 (00:01→21:25)
[2023-12-13] MEDS: Melatonin 3 MG TABLET 6 MG PO (00:02)
[2023-12-13] MEDS: Levothyroxine Sodium 88 MCG TABLET PO (06:13)
[2023-12-13 06:31] LABS: Anion Gap 14 (12-20); Blood Urea Nitrogen 13 mg/dL (9-16); Calcium 8.9 mg/dL (8.4-10.2); Carbon Dioxide 22 mmol/L (22-29); Chloride 102 mmol/L (96-108); Creatinine Clr Calc Pharmacy 72.3; Estimated Glomerular Filt Rate > 60; Glucose Fasting 133 mg/dL (60-99); Magnesium 2.1 mg/dL (1.6-2.6); Potassium 3.7 mmol/L (3.3-5.1); Sodium 134 mmol/L (135-145)
[2023-12-13 06:32] LABS: Hematocrit 34.7 % (37.0-47.0); Hemoglobin 11.5 g/dl (12.0-16.0); Mean Corpuscular HGB Conc 33.1 g/dl (31.0-35.0); Mean Corpuscular Hemoglobin 34.7 pg (27.0-33.0); Mean Corpuscular Volume 104.8 fL (80.0-98.0); Mean Platelet Volume 10.5 fL (9.4-12.3); Platelet Count 311 X10*3/uL (160-400); Red Blood Count 3.31 X10*6/uL (4.20-5.50); Red Cell Distribution Width 13.1 % (11.0-16.0); White Blood Count 13.3 X10*3/uL (4.8-10.8)
[2023-12-13 06:53] LABS: TSH reflex Free T4 0.74 uIU/mL (0.32-4.0)
[2023-12-13 07:09] LABS: Vitamin B12 1997 pg/mL (200-900)
[2023-12-13] MEDS: Omeprazole 20 MG CAPSULE.DR PO (09:02)
[2023-12-13] MEDS: Atorvastatin Calcium 40 MG TABLET PO (09:02)
[2023-12-13] MEDS: 0.9 % Sodium Chloride Flush 3 ML SYRINGE IVFLUSH ×3 (09:02→20:49)
[2023-12-13] MEDS: Nystatin Cream 15 GM TUBE 1 APPL TOPICAL ×2 (09:02→20:49)
[2023-12-13] MEDS: Donepezil HCl 5 MG TABLET PO (09:02)
[2023-12-13] MEDS: Cholecalciferol (Vitamin D3) 25 MCG TABLET PO (09:02)
[2023-12-13] MEDS: Ferrous Sulfate 324 MG TABLET.DR PO (09:05)
--- NOTE | 2023-12-13 09:08 | P.PNIM_ITS ---
Subjective Subjective Date of Service: 12/13/23 Interval History: back pain Physical Exam 2 Vital Signs: Vital Signs: Last Vital Signs Temp 97.8 F 12/13/23 08:00 Pulse 88 12/13/23 08:00 Resp 14 12/13/23 08:00 BP 143/93 H 12/13/23 08:00 Pulse Ox 97 12/13/23 08:00 O2 Del Method Room Air 12/13/23 08:00 BMI result Body Mass Index 29.6 lethargic oriented to person only, poor insight, left side tender, diffuse weakness Objective Data Active Medications Acetaminophen (Acetaminophen 325 Mg Tablet) 650 mg PO Q6H PRN PRN Reason: Pain, Mild (Pain Scale 1-3), fever or headache Last Admin: 12/13/23 00:01 Dose: 650 mg Documented By: LEXII Atorvastatin Calcium (Atorvastatin Calcium 40 Mg Tablet) 40 mg PO DAILY [facility] Last Admin: 12/12/23 08:40 Dose: 40 mg Documented By: DOMI Calcium Carbonate (Calcium Carbonate 750 Mg Tab.Chew) 750 mg PO Q4H PRN PRN Reason: Heartburn Donepezil HCl (Donepezil Hcl 5 Mg Tablet) 5 mg PO DAILY [facility] Last Admin: 12/12/23 08:41 Dose: 5 mg Documented By: DOMI Enoxaparin Sodium (Enoxaparin Sodium 40 Mg/0.4 Ml Syringe) 40 mg SUBCUT Q24H [facility] Last Admin: 12/12/23 22:13 Dose: 40 mg Documented By: LEXII Ferrous Sulfate (Ferrous Sulfate 324 Mg Tablet.) 324 mg PO Q48H [facility] Last Admin: 12/11/23 12:08 Dose: 324 mg Documented By: ELISA Ceftriaxone Sodium 1 gm/ (Sodium Chloride) 50 mls @ 100 mls/hr IV Q24H [facility] Last Infusion: 12/12/23 16:48 Dose: Infused Documented By: DOMI Azithromycin 500 mg/ Sodium (Chloride) 250 mls @ 125 mls/hr IV Q24H [facility] Last Infusion: 12/13/23 00:19 Dose: Infused Documented By: LEXII Levothyroxine Sodium (Levothyroxine Sodium 88 Mcg Tablet) 88 mcg PO DAILY@0600 [facility] Last Admin: 12/13/23 06:13 Dose: 88 mcg Documented By: LEXII Magnesium Hydroxide (Milk Of Magnesia 30 Ml Oral.Susp) 30 ml PO DAILY PRN PRN Reason: Constipation Melatonin (Melatonin 3 Mg Tablet) 6 mg PO BEDTIME PRN PRN Reason: Insomnia Last Admin: 12/13/23 00:02 Dose: 6 mg Documented By: LEXII Nystatin (Nystatin Cream 15 Gm Tube) 1 appl TOPICAL BID [facility]; Protocol Last Admin: 12/12/23 22:11 Dose: 1 appl Documented By: LEXII Omeprazole (Omeprazole 20 Mg Capsule.Dr) 20 mg PO DAILY [facility] Last Admin: 12/12/23 08:40 Dose: 20 mg Documented By: DOMI Ondansetron HCl (Ondansetron Hcl 4 Mg/2 Ml Vial) 4 mg IVPUSH Q8H PRN PRN Reason: Nausea and Vomiting Sodium Chloride (0.9 % Sodium Chloride Flush 3 Ml Syringe) 3 ml IVFLUSH QSHIFT [facility] Last Admin: 12/12/23 22:17 Dose: 3 ml Documented By: LEXII Vitamin D (Cholecalciferol (Vitamin D3) 25 Mcg Tablet) 25 mcg PO DAILY [facility] Last Admin: 12/12/23 08:40 Dose: 25 mcg Documented By: DOMI Labs 12/13/23 05:36 12/13/23 05:36 Labs: Laboratory Results - last 24 hr 12/13/23 05:36 MCV 104.8 H MCH 34.7 H MCHC 33.1 RDW 13.1 Plt Count 311 MPV 10.5 Absolute Nucleated RBC 0.000 Nucleated RBC % (auto) 0.0 Anion Gap 14 Estim Creat Clear Calc 72.3 Estimated GFR > 60 Fasting Glucose 133 H Calcium 8.9 Magnesium 2.1 Vitamin B12 1997 H Folate 8.0 TSH 0.74 Microbiology Microbiology Results: Microbiology 12/10/23 16:45 Blood Culture - Preliminary Blood - Venous No growth after 48 hours. 12/10/23 16:19 Blood Culture - Preliminary Blood - Venous No growth after 48 hours. 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, hypothyroid, gerd, presented with ams, fever sepsis due to pneumonia complicated by acute metabolic encephalopathy due to recent 9th and 10th rib fractures from frequent falls due to dementia amanda [place] cth with atrophic changes, nothing acute back pain check lumbar and thoracic ct macrocytosis normal tsh, b12, folate lewy body and likely etoh dementia at risk for delerium, monitor etoh depenedence monitor for withdrawal hypothryoid synthroid dvt prophylaxis - lovenox full code reason for continued hospitalization: working up weakness Quality Stroke Does the patient have a stroke diagnosis?: No VTE Prior VTE?: No VTE Risk Level:: Medical - moderate - high VTE Device Contraindication: Treatment Not Indicated VTE Drug Contraindication: N/A - Med Ordered
--- NOTE | 2023-12-13 13:12 | MHC.SLORD ---
Speech Language Pathology Order Status: CARD SETTER called in for other patient(S) this am, at time of call-in, patient away at CAT scan. CARD SETTER will assess 12/14/23.
[2023-12-13] MEDS: amLODIPine Besylate 5 MG TABLET PO (17:36)
[2023-12-13] MEDS: cefTRIAXone sodium 1 GM in 0.9 % Sodium Chloride 50 ML IV (17:37)
[2023-12-13] MEDS: Albumin Human 25 % 100 ML 133.33 ML IV ×2 (21:32→22:19)
--- NOTE | 2023-12-13 21:38 | PC.NURSE ---
Assumed care of patient at 19:00. Pt is A&Ox1 to self only; states wrong year of (states 1943, YOB is 1945 per wristband and chart). Hx dementia. Attempts made to reorient. Patient febrile to 101.6 rectal this evening. +radial and dp pulses. Breathing is even and unlabored without distress on RA. Vitals otherwise stable. Per chart review, last BCx x2, U/A, and CXR were done 12/09; this and fever discussed with Covering Dr. Billingsley. orders for BCx x2 and lactic, albumin x2. Prn tylenol given per JUL, crushed in applesauce which patient tolerated without issue. Tylenol effectiveness pending. Ice applied to b/l axilla. Albumin infusing, remote mortgage underwriter attempting to obtain second IV for albumin and scheduled abx. In-room camera and bed alarm in place.
[2023-12-13 22:00] LABS: Lactic Acid 0.9 mmol/L (0.5-2.0)
[2023-12-13] MEDS: Enoxaparin Sodium 40 MG/0.4 ML SYRINGE SUBCUT (22:15)
[2023-12-13] MEDS: Azithromycin 500 MG in 0.9 % Sodium Chloride 250 ML 125 MG IV (22:16)
[2023-12-14] VITALS (8 sets, daily range): BP systolic 129–168; BP diastolic 65–81; PULSE 81–88; RESP 17–20; TEMP 36.4–38; O2SAT 94–96
[2023-12-14] MEDS: Levothyroxine Sodium 88 MCG TABLET PO (05:32)
[2023-12-14] MEDS: Atorvastatin Calcium 40 MG TABLET PO (08:22)
[2023-12-14] MEDS: 0.9 % Sodium Chloride Flush 3 ML SYRINGE IVFLUSH ×3 (08:22→19:30)
[2023-12-14] MEDS: Donepezil HCl 5 MG TABLET PO (08:22)
[2023-12-14] MEDS: Omeprazole 20 MG CAPSULE.DR PO (08:22)
[2023-12-14] MEDS: Cholecalciferol (Vitamin D3) 25 MCG TABLET PO (08:22)
[2023-12-14] MEDS: amLODIPine Besylate 5 MG TABLET PO (08:22)
[2023-12-14] MEDS: Nystatin Cream 15 GM TUBE 1 APPL TOPICAL ×2 (08:22→19:35)
[2023-12-14] MEDS: Piperacillin Sodium/Tazobactam 4.5 GM in 0.9 % Sodium Chloride 100 ML IV ×3 (08:37→19:29)
--- NOTE | 2023-12-14 09:00 | HO.PM.IMPN ---
Subjective Subjective Date of Service: 12/14/23 Interval History: fever last night Physical Exam Vital Signs: Vital Signs: Last Vital Signs Temp 97.9 F 12/14/23 07:56 Pulse 87 12/14/23 07:56 Resp 20 12/14/23 07:56 BP 168/81 H 12/14/23 08:22 Pulse Ox 96 12/14/23 07:56 O2 Del Method Room Air 12/14/23 07:56 BMI result Body Mass Index 29.6 lethargic oriented to person only, poor insight, left side tender, diffuse weakness Objective Data Active Medications Acetaminophen (Acetaminophen 325 Mg Tablet) 650 mg PO Q6H PRN PRN Reason: Pain, Mild (Pain Scale 1-3), fever or headache Last Admin: 12/13/23 21:25 Dose: 650 mg Documented By: GAYLE Amlodipine Besylate (Amlodipine Besylate 5 Mg Tablet) 5 mg PO DAILY REPLACED BY [facility]; Protocol Last Admin: 12/14/23 08:22 Dose: 5 mg Documented By: ELISA Atorvastatin Calcium (Atorvastatin Calcium 40 Mg Tablet) 40 mg PO DAILY REPLACED BY [facility] Last Admin: 12/14/23 08:22 Dose: 40 mg Documented By: ELISA Calcium Carbonate (Calcium Carbonate 750 Mg Tab.Chew) 750 mg PO Q4H PRN PRN Reason: Heartburn Donepezil HCl (Donepezil Hcl 5 Mg Tablet) 5 mg PO DAILY REPLACED BY [facility] Last Admin: 12/14/23 08:22 Dose: 5 mg Documented By: ELISA Enoxaparin Sodium (Enoxaparin Sodium 40 Mg/0.4 Ml Syringe) 40 mg SUBCUT Q24H REPLACED BY [facility] Last Admin: 12/13/23 22:15 Dose: 40 mg Documented By: GAYLE Ferrous Sulfate (Ferrous Sulfate 324 Mg Tablet.Dr) 324 mg PO Q48H REPLACED BY [facility] Last Admin: 12/13/23 09:05 Dose: 324 mg Documented By: DOMI Piperacillin Sod/Tazobactam (Sod 4.5 gm/ Sodium Chloride) 100 mls @ 200 mls/hr IV Q6H REPLACED BY [facility] Last Admin: 12/14/23 08:37 Dose: 200 mls/hr Documented By: ELISA Vancomycin HCl 1,000 mg/Vancomycin HCl 750 mg/ Sodium Chloride 535 mls @ 267.5 mls/hr IV ONCE ONE Stop: 12/14/23 09:59 Vancomycin HCl 750 mg/ Sodium (Chloride) 265 mls @ 265 mls/hr IV Q12H REPLACED BY [facility] Levothyroxine Sodium (Levothyroxine Sodium 88 Mcg Tablet) 88 mcg PO DAILY@0600 REPLACED BY [facility] Last Admin: 12/14/23 05:32 Dose: 88 mcg Documented By: GAYLE Magnesium Hydroxide (Milk Of Magnesia 30 Ml Oral.Susp) 30 ml PO DAILY PRN PRN Reason: Constipation Melatonin (Melatonin 3 Mg Tablet) 6 mg PO BEDTIME PRN PRN Reason: Insomnia Last Admin: 12/13/23 00:02 Dose: 6 mg Documented By: LEXII Nystatin (Nystatin Cream 15 Gm Tube) 1 appl TOPICAL BID REPLACED BY [facility]; Protocol Last Admin: 12/14/23 08:22 Dose: 1 appl Documented By: ELISA Omeprazole (Omeprazole 20 Mg Capsule.) 20 mg PO DAILY REPLACED BY [facility] Last Admin: 12/14/23 08:22 Dose: 20 mg Documented By: ELISA Ondansetron HCl (Ondansetron Hcl 4 Mg/2 Ml Vial) 4 mg IVPUSH Q8H PRN PRN Reason: Nausea and Vomiting Pharmacy Consult (Consult Rx Vancomycin Dosing) 1 each MISCELLANE DAILY PRN PRN Reason: Consult order Sodium Chloride (0.9 % Sodium Chloride Flush 3 Ml Syringe) 3 ml IVFLUSH QSHIFT REPLACED BY [facility] Last Admin: 12/14/23 08:22 Dose: 3 ml Documented By: ELISA Vitamin D (Cholecalciferol (Vitamin D3) 25 Mcg Tablet) 25 mcg PO DAILY REPLACED BY [facility] Last Admin: 12/14/23 08:22 Dose: 25 mcg Documented By: ELISA Labs 12/13/23 05:36 12/13/23 05:36 Labs: Laboratory Results - last 24 hr 12/13/23 21:42 Lactic Acid 0.9 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, hypothyroid, gerd, presented with ams, fever sepsis due to pneumonia complicated by acute metabolic encephalopathy due to recent 9th and 10th rib fractures from frequent falls due to dementia recurrent fever overnight, will change antibiotics to vanc, zosyn, follow up repeat cultures cth with atrophic changes, nothing acute back pain lumbar and thoracic ct no fracture evidence of significant radiculopathy macrocytosis normal tsh, b12, folate lewy body and 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
[2023-12-14] MEDS: vancomycin HCL 1,000 MG, vancomycin HCL 750 MG in 0.9 % Sodium Chloride 500 ML 267.5 MG IV (10:06)
[2023-12-14] MEDS: Acetaminophen 325 MG TABLET 650 MG PO ×2 (10:41→20:02)
--- NOTE | 2023-12-14 11:22 | MHC.CM.PN ---
PER MD ROUNDS, PT NOT READY TO DC. [facility] CONFIRMED [facility] ARE HOLDING A BED FOR THIS PT PT EXPECTED TO BE CLEARED TO DC TOMORROW
--- NOTE | 2023-12-14 12:11 | MHC.SL.SWA ---
Speech Pathologist Impression: Risk of aspiration, mild oral phase dysphagia Risk of Aspiration Due to: Neurological Condition Reduced Cognition Dysphasia Diet Status: No changes at this time Liquid Consistency and Strategies for Safe Swallow: Liquid Intake Recommendation: Thin Liquid Intake Strategies: Small Sips Solid Food Consistency: Dietary Recommendations: Regular Additional Modifications to Solid Foods: Patient seen this morning for bedside dysphagia evaluation. Noted mildly prolonged oral phase and presence of oral residuals post-swallow, all other aspects of swallow deemed WFL. Per RN, patient tolerated her breakfast consisting of regular solid textures and swallowed her pills whole with liquid. Patient was slow to feed herself, may need assistance throughout meals with opening of containers and ensuring that everything on the tray is accessible to the patient. Recommend continue on REGULAR texture diet and THIN liquids with direct supervision, pills whole one at a time with liquid. No changes made to the diet order. Oral Medication Intake: Whole with Liquid Please contact the pharmacy regarding appropriate crushable or liquid drug formulations that are available whenever modified delivery is recommended. Compensatory Strategies and Precautions to be Taken for Safe Swallow: Sitting Upright (90 deg) Small Bites and Sips Alternate Liquids/Solids Rate of Ingestion Change Avoid Specific Foods Supervision While Eating and Drinking for Safe Swallow: Total Supervision (1:1) Foods to Avoid: Hard or overly sticky foods Swallowing Recommended Treatments: Compens. Strategy Educat. Recommendation for Speech: Inpatient Speech Therapy Comment: 1 f/u to ensure tolerance of unmodified diet Frequency/Duration: Date Range for Service Req: Timeline to reassess: Ophthalmic Lens Inspector Clinican/Clinical Fellow: No Supervisory Statement: I have reviewed and agree with the student/clinical fellow's documentation: N/A Speech Language Pathologist: Puja Woo M.A., CCC-ROTARY MACHINE OPERATOR
[2023-12-14] MEDS: vancomycin HCL 750 MG in 0.9 % Sodium Chloride 250 ML 265 MG IV (20:11)
--- NOTE | 2023-12-14 20:18 | PC.NURSE ---
Assumed care of patient at 19:00. Pt is A&Ox1 to self and , states 2022 for year. Does not know where she is or why she is here. Has dementia hx. Pt reoriented. More wakeful/less drowsy for web content writer tonight compared to last night. Breathing is even and unlabored without distress. Pt on scheduled zosyn and vanco. Prn tylenol given per JUL. Covering Dr. Miguel Edouard made aware.
[2023-12-14] MEDS: Enoxaparin Sodium 40 MG/0.4 ML SYRINGE SUBCUT (23:53)
[2023-12-15] VITALS: BP 136/65; PULSE 86; RESP 18; TEMP 37.8; O2SAT 96
[2023-12-15] MEDS: Piperacillin Sodium/Tazobactam 4.5 GM in 0.9 % Sodium Chloride 100 ML IV ×4 (00:38→19:26)
[2023-12-15] MEDS: Levothyroxine Sodium 88 MCG TABLET PO (05:15)
[2023-12-15 07:51] LABS: Hemoglobin 10.8 g/dl (12.0-16.0); Mean Corpuscular HGB Conc 33.8 g/dl (31.0-35.0); Mean Corpuscular Hemoglobin 35.3 pg (27.0-33.0); Mean Corpuscular Volume 104.6 fL (80.0-98.0); Mean Platelet Volume 9.7 fL (9.4-12.3); Platelet Count 333 X10*3/uL (160-400); Red Blood Count 3.06 X10*6/uL (4.20-5.50); Red Cell Distribution Width 13.2 % (11.0-16.0); White Blood Count 9.5 X10*3/uL (4.8-10.8)
[2023-12-15 08:00] VITALS: BP 146/62; PULSE 86; RESP 16; TEMP 36.8; O2SAT 94
[2023-12-15 08:09] LABS: Vancomycin Random 8.9 mcg/mL (15-20)
[2023-12-15 08:11] LABS: Alanine Aminotransferase 101 U/L (0-31); Albumin Level 3.2 g/dL (3.5-5.0); Alkaline Phosphatase 180 U/L (39-117); Anion Gap 14 (12-20); Aspartate Amino Transferase 129 U/L (5-31); Bilirubin Direct 0.3 mg/dL (0.0-0.5); Bilirubin Total 0.5 mg/dL (0.0-1.0); Blood Urea Nitrogen 13 mg/dL (9-16); C Reactive Protein 17.53 mg/dL (< or = 0.50); Calcium 8.9 mg/dL (8.4-10.2); Carbon Dioxide 22 mmol/L (22-29); Chloride 106 mmol/L (96-108); Estimated Glomerular Filt Rate > 60; Glucose Fasting 111 mg/dL (60-99); Lactate Dehydrogenase 212 U/L (122-220); Magnesium 2.1 mg/dL (1.6-2.6); Potassium 3.5 mmol/L (3.3-5.1); Sodium 138 mmol/L (135-145); Total Protein 6.3 g/dL (6.5-8.0)
[2023-12-15 08:25] VITALS: BP 146/62
[2023-12-15] MEDS: amLODIPine Besylate 5 MG TABLET PO (08:25)
[2023-12-15] MEDS: Atorvastatin Calcium 40 MG TABLET PO (08:25)
[2023-12-15] MEDS: Donepezil HCl 5 MG TABLET PO (08:25)
[2023-12-15] MEDS: 0.9 % Sodium Chloride Flush 3 ML SYRINGE IVFLUSH ×3 (08:25→19:27)
[2023-12-15] MEDS: Cholecalciferol (Vitamin D3) 25 MCG TABLET PO (08:25)
[2023-12-15] MEDS: Omeprazole 20 MG CAPSULE.DR PO (08:25)
[2023-12-15] MEDS: Nystatin Cream 15 GM TUBE 1 APPL TOPICAL ×2 (08:26→19:28)
--- NOTE | 2023-12-15 08:35 | HE.PHANOTE ---
Re: Vanco Renal funcion improving. Trough returned at 8.9. Dose increased to 1,000 mg q12h with predicted AUC 421, and predicted trough of 12.6. Next random trough 12/15 at 0700.
--- NOTE | 2023-12-15 09:14 | P.PNIM_ITS ---
Subjective Subjective Date of Service: 12/15/23 Interval History: low grade fever overnight Physical Exam 2 Vital Signs: Vital Signs: Last Vital Signs Temp 98.2 F 12/15/23 08:00 Pulse 26 L 12/15/23 08:00 Resp 16 12/15/23 08:00 BP 146/62 H 12/15/23 08:25 Pulse Ox 94 12/15/23 08:00 O2 Del Method Room Air 12/15/23 08:00 BMI result Body Mass Index 29.6 lethargic oriented to person only, poor insight, left side tender, diffuse weakness Objective Data Active Medications Acetaminophen (Acetaminophen 325 Mg Tablet) 650 mg PO Q6H PRN PRN Reason: Pain, Mild (Pain Scale 1-3), fever or headache Last Admin: 12/14/23 20:02 Dose: 650 mg Documented By: GAYLE Amlodipine Besylate (Amlodipine Besylate 5 Mg Tablet) 5 mg PO DAILY [facility]; Protocol Last Admin: 12/15/23 08:25 Dose: 5 mg Documented By: ELISA Atorvastatin Calcium (Atorvastatin Calcium 40 Mg Tablet) 40 mg PO DAILY [facility] Last Admin: 12/15/23 08:25 Dose: 40 mg Documented By: ELISA Calcium Carbonate (Calcium Carbonate 750 Mg Tab.Chew) 750 mg PO Q4H PRN PRN Reason: Heartburn Donepezil HCl (Donepezil Hcl 5 Mg Tablet) 5 mg PO DAILY [facility] Last Admin: 12/15/23 08:25 Dose: 5 mg Documented By: ELISA Enoxaparin Sodium (Enoxaparin Sodium 40 Mg/0.4 Ml Syringe) 40 mg SUBCUT Q24H [facility] Last Admin: 12/14/23 23:53 Dose: 40 mg Documented By: GAYLE Ferrous Sulfate (Ferrous Sulfate 324 Mg Tablet.Dr) 324 mg PO Q48H [facility] Last Admin: 12/13/23 09:05 Dose: 324 mg Documented By: DOMI Piperacillin Sod/Tazobactam (Sod 4.5 gm/ Sodium Chloride) 100 mls @ 200 mls/hr IV Q6H [facility] Last Infusion: 12/15/23 08:58 Dose: Infused Documented By: ELISA Vancomycin HCl 1,000 mg/ (Sodium Chloride) 270 mls @ 270 mls/hr IV Q12H [facility] Levothyroxine Sodium (Levothyroxine Sodium 88 Mcg Tablet) 88 mcg PO DAILY@0600 [facility] Last Admin: 12/15/23 05:15 Dose: 88 mcg Documented By: GAYLE Magnesium Hydroxide (Milk Of Magnesia 30 Ml Oral.Susp) 30 ml PO DAILY PRN PRN Reason: Constipation Melatonin (Melatonin 3 Mg Tablet) 6 mg PO BEDTIME PRN PRN Reason: Insomnia Last Admin: 12/13/23 00:02 Dose: 6 mg Documented By: LEXII Nystatin (Nystatin Cream 15 Gm Tube) 1 appl TOPICAL BID [facility]; Protocol Last Admin: 12/15/23 08:26 Dose: 1 appl Documented By: ELISA Omeprazole (Omeprazole 20 Mg Capsule.Dr) 20 mg PO DAILY [facility] Last Admin: 12/15/23 08:25 Dose: 20 mg Documented By: ELISA Ondansetron HCl (Ondansetron Hcl 4 Mg/2 Ml Vial) 4 mg IVPUSH Q8H PRN PRN Reason: Nausea and Vomiting Pharmacy Consult (Consult Rx Vancomycin Dosing) 1 each MISCELLANE DAILY PRN PRN Reason: Consult order Sodium Chloride (0.9 % Sodium Chloride Flush 3 Ml Syringe) 3 ml IVFLUSH QSHIFT [facility] Last Admin: 12/15/23 08:25 Dose: 3 ml Documented By: ELISA Vitamin D (Cholecalciferol (Vitamin D3) 25 Mcg Tablet) 25 mcg PO DAILY [facility] Last Admin: 12/15/23 08:25 Dose: 25 mcg Documented By: ELISA Labs 12/15/23 07:43 12/15/23 07:43 Labs: Laboratory Results - last 24 hr 12/15/23 07:43 MCV 104.6 H MCH 35.3 H MCHC 33.8 RDW 13.2 Plt Count 333 MPV 9.7 Absolute Nucleated RBC 0.000 Nucleated RBC % (auto) 0.0 Anion Gap 14 Estim Creat Clear Calc 84.0 Estimated GFR > 60 Fasting Glucose 111 H Calcium 8.9 Magnesium 2.1 Total Bilirubin 0.5 Direct Bilirubin 0.3 AST 129 H ALT 101 H Alkaline Phosphatase 180 H Lactate Dehydrogenase 212 C-Reactive Protein 17.53 H Total Protein 6.3 L Albumin 3.2 L Random Vancomycin 8.9 L Microbiology Microbiology Results: Microbiology 12/13/23 21:45 Blood Culture - Preliminary Blood - Venous No growth after 24 hours. 12/13/23 21:42 Blood Culture - Preliminary Blood - Venous No growth after 24 hours. 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, hypothyroid, gerd, presented with ams, fever sepsis due to pneumonia complicated by acute metabolic encephalopathy due to recent 9th and 10th rib fractures from frequent falls due to dementia due to recurrent fever 12/13/23, changed antibiotics to vanc, zosyn, follow up repeat cultures, still with low grade fevers, increasing lfts, check ct abd pelvis cth with atrophic changes, nothing acute back pain lumbar and thoracic ct no fracture evidence of significant radiculopathy macrocytosis normal tsh, b12, folate lewy body and 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
[2023-12-15] MEDS: Acetaminophen 325 MG TABLET 650 MG PO (10:20)
[2023-12-15] MEDS: Ferrous Sulfate 324 MG TABLET.DR PO (10:21)
[2023-12-15] MEDS: vancomycin HCL 1,000 MG in 0.9 % Sodium Chloride 250 ML 270 MG IV ×2 (10:21→20:22)
--- NOTE | 2023-12-15 11:37 | MHC.SL.DTX ---
Dysphagia Diet modifications: Last documented Solid diet consistencies: Regular Last documented Liquid consistency: Thin Last documented Medication Administration: Changes made to current diet?: No Liquid Consistency and Strategies: Liquid Intake Recommendation: Thin Compensatory Strategies for Safe Swallow: Small Sips Compensatory Strategies for Safe Swallow(b): Sitting Upright (90 deg) Solid Food Consistency: Dietary Recommendations: Regular Oral Medication Intake: Whole with Liquid Strategies and Precautions to be Taken for Safe Swallow: Sitting Upright (90 deg) Supervision While Eating and/Drinking: Intermittent Supervision Foods to Avoid: Hard or overly sticky foods Swallowing Recommended Treatments: Compens. Strategy Educat. Level of Impact on: Daily activities: None Interpersonal interactions: Education: None Employment: None Community: None Prognosis for Improvement: Good Recommendation for Speech: Inpatient Speech Therapy Comment: Pt discharged. Additional Comments: Treatment: Per Rn, Pt is doing well with her current recommendations. Pt is in her recliner awake and alert on arrival. She reports no difficulty swallowing her unmodified diet. She agrees to trial sips of Thin Liquids water via straw with no overt s/s of aspiration. She is noted to be careful with her sips. When asked, Pt requests a Pepsi. There is none available on the floor. COOK APPRENTICE will contact [facility] to order for Lunch. Pt has been stable on her diet with no reported or observed difficulties. No further skilled COOK APPRENTICE intervention is indicated at this time. Recommend Pt continue current diet of Regular Solids and Thin Liquids. Meds Whole with Liquids. Intermittent supervision to ensure access to all nutrition provided. Please re-refer if status changes. Yard Clerk Clinican/Clinical Fellow: No Supervisory Statement: I have reviewed and agree with the student/clinical fellow's documentation: N/A Speech Language Pathologist: Jorje Ramirez M.A., CCC-COOK APPRENTICE
[2023-12-15 11:39] LABS: Erythrocyte Sedimentation Rate 101 MM/HR (0-20)
[2023-12-15 15:08] VITALS: BP 130/61; PULSE 82; RESP 18; TEMP 36.4; O2SAT 96
[2023-12-15 19:47] VITALS: BP 164/86; PULSE 86; RESP 18; TEMP 36.3; O2SAT 95
[2023-12-15] MEDS: Enoxaparin Sodium 40 MG/0.4 ML SYRINGE SUBCUT (23:38)
[2023-12-16] VITALS: BP 155/76; PULSE 89; RESP 16; TEMP 36.8; O2SAT 96
[2023-12-16] MEDS: Piperacillin Sodium/Tazobactam 4.5 GM in 0.9 % Sodium Chloride 100 ML IV ×4 (01:07→18:34)
[2023-12-16] MEDS: Levothyroxine Sodium 88 MCG TABLET PO (05:42)
[2023-12-16] MEDS: Nystatin Cream 15 GM TUBE 1 APPL TOPICAL ×2 (07:45→22:25)
[2023-12-16] MEDS: Omeprazole 20 MG CAPSULE.DR PO (07:45)
[2023-12-16] MEDS: amLODIPine Besylate 5 MG TABLET PO (07:45)
[2023-12-16] MEDS: Atorvastatin Calcium 40 MG TABLET PO (07:45)
[2023-12-16] MEDS: Donepezil HCl 5 MG TABLET PO (07:45)
[2023-12-16] MEDS: Cholecalciferol (Vitamin D3) 25 MCG TABLET PO (07:45)
[2023-12-16] MEDS: 0.9 % Sodium Chloride Flush 3 ML SYRINGE IVFLUSH ×3 (07:46→22:25)
[2023-12-16 08:44] VITALS: BP 140/80; PULSE 86; RESP 14; TEMP 36.4; O2SAT 94
[2023-12-16] MEDS: vancomycin HCL 1,000 MG in 0.9 % Sodium Chloride 250 ML 270 MG IV (11:53)
--- NOTE | 2023-12-16 12:50 | P.PNIM_ITS ---
Subjective Subjective Date of Service: 12/16/23 Interval History: No acute issues overnight. Mild confusion but easily reoriented Review of Systems Denies chest pain Denies shortness of breath Denies nausea vomiting diarrhea Denies fever chills Physical Exam 2 Vital Signs: Vital Signs: Last Vital Signs Temp 97.6 F 12/16/23 08:44 Pulse 86 12/16/23 08:44 Resp 14 12/16/23 08:44 BP 140/80 H 12/16/23 08:44 Pulse Ox 94 12/16/23 08:44 O2 Del Method Room Air 12/16/23 08:44 BMI result Body Mass Index 29.6 Const: Other: Awake confused; pleasant Resp: Other: Diminished at bases with scant expiratory wheezes Cardio: Other: No S4; positive S1-S2; no S3 murmurs rubs or gallops GI: Other: Soft nontender nondistended normoactive bowel sounds Extrem: Other: No edema bilaterally Objective Data Active Medications Acetaminophen (Acetaminophen 325 Mg Tablet) 650 mg PO Q6H PRN PRN Reason: Pain, Mild (Pain Scale 1-3), fever or headache Last Admin: 12/15/23 10:20 Dose: 650 mg Documented By: ELISA Amlodipine Besylate (Amlodipine Besylate 5 Mg Tablet) 5 mg PO DAILY [facility]; Protocol Last Admin: 12/16/23 07:45 Dose: 5 mg Documented By: LEX Atorvastatin Calcium (Atorvastatin Calcium 40 Mg Tablet) 40 mg PO DAILY [facility] Last Admin: 12/16/23 07:45 Dose: 40 mg Documented By: LEX Calcium Carbonate (Calcium Carbonate 750 Mg Tab.Chew) 750 mg PO Q4H PRN PRN Reason: Heartburn Donepezil HCl (Donepezil Hcl 5 Mg Tablet) 5 mg PO DAILY [facility] Last Admin: 12/16/23 07:45 Dose: 5 mg Documented By: LEX Enoxaparin Sodium (Enoxaparin Sodium 40 Mg/0.4 Ml Syringe) 40 mg SUBCUT Q24H [facility] Last Admin: 12/15/23 23:38 Dose: 40 mg Documented By: GAYLE Ferrous Sulfate (Ferrous Sulfate 324 Mg Tablet.) 324 mg PO Q48H [facility] Last Admin: 12/15/23 10:21 Dose: 324 mg Documented By: ELISA Piperacillin Sod/Tazobactam (Sod 4.5 gm/ Sodium Chloride) 100 mls @ 200 mls/hr IV Q6H [facility] Last Infusion: 12/16/23 08:35 Dose: Infused Documented By: LEX Vancomycin HCl 1,000 mg/ (Sodium Chloride) 270 mls @ 270 mls/hr IV Q12H [facility] Last Admin: 12/16/23 11:53 Dose: 270 mls/hr Documented By: LEX Comments: PT REFUSED TROUGH, AWARE AND OK TO GIVE Levothyroxine Sodium (Levothyroxine Sodium 88 Mcg Tablet) 88 mcg PO DAILY@0600 [facility] Last Admin: 12/16/23 05:42 Dose: 88 mcg Documented By: GAYLE Magnesium Hydroxide (Milk Of Magnesia 30 Ml Oral.Susp) 30 ml PO DAILY PRN PRN Reason: Constipation Melatonin (Melatonin 3 Mg Tablet) 6 mg PO BEDTIME PRN PRN Reason: Insomnia Last Admin: 12/13/23 00:02 Dose: 6 mg Documented By: LEXII Nystatin (Nystatin Cream 15 Gm Tube) 1 appl TOPICAL BID [facility]; Protocol Last Admin: 12/16/23 07:45 Dose: 1 appl Documented By: LEX Omeprazole (Omeprazole 20 Mg Capsule.) 20 mg PO DAILY [facility] Last Admin: 12/16/23 07:45 Dose: 20 mg Documented By: LEX Ondansetron HCl (Ondansetron Hcl 4 Mg/2 Ml Vial) 4 mg IVPUSH Q8H PRN PRN Reason: Nausea and Vomiting Pharmacy Consult (Consult Rx Vancomycin Dosing) 1 each MISCELLANE DAILY PRN PRN Reason: Consult order Sodium Chloride (0.9 % Sodium Chloride Flush 3 Ml Syringe) 3 ml IVFLUSH QSHIFT [facility] Last Admin: 12/16/23 07:46 Dose: 3 ml Documented By: LEX Vitamin D (Cholecalciferol (Vitamin D3) 25 Mcg Tablet) 25 mcg PO DAILY [facility] Last Admin: 12/16/23 07:45 Dose: 25 mcg Documented By: LEX Labs 12/15/23 07:43 12/15/23 07:43 Microbiology Microbiology Results: Microbiology 12/13/23 21:45 Blood Culture - Preliminary Blood - Venous No growth after 48 hours. 12/13/23 21:42 Blood Culture - Preliminary Blood - Venous No growth after 48 hours. 12/10/23 16:45 Blood Culture - Final Blood - Venous No growth after 5 days. 12/10/23 16:19 Blood Culture - Final Blood - Venous No growth after 5 days. 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 . . Vanco/Zosyn (2) -switch to p.o. upon discharge -will need short-term rehab at minimum 2.Back pain -no acute fractures by CT -conservative therapy 3.Hypothryoid -continue outpatient supplements Lovenox Full code Requires ongoing hospitalization for IV antibiotics to treat pneumonia; will need minimally short-term rehab Quality Stroke Does the patient have a stroke diagnosis?: No VTE Prior VTE?: No VTE Risk Level:: Medical - moderate - high VTE Device Contraindication: Treatment Not Indicated VTE Drug Contraindication: N/A - Med Ordered
[2023-12-16 15:35] VITALS: BP 168/81; PULSE 92; RESP 18; TEMP 36.8; O2SAT 95
--- NOTE | 2023-12-16 15:41 | MHC.CM.PN ---
EMR REVIEWED AND PER MD ROUNDS, PT IS NOT MEDICALLY CLEARED FOR DC TO [facility] UPDATED VIA [employer] AND CM SPOKE WITH DAUGHTER/HCP KEMAR TO UPDATE DC PLAN. CM WILL CONTINUE TO FOLLOW FOR ANY CHANGE TO DC PLAN/NEEDS.
[2023-12-16] MEDS: Enoxaparin Sodium 40 MG/0.4 ML SYRINGE SUBCUT (22:24)
[2023-12-16 23:19] VITALS: BP 158/82; PULSE 92; RESP 18; TEMP 36.8; O2SAT 94
[2023-12-17] MEDS: vancomycin HCL 1,000 MG in 0.9 % Sodium Chloride 250 ML 270 MG IV (00:28)
[2023-12-17] MEDS: Piperacillin Sodium/Tazobactam 4.5 GM in 0.9 % Sodium Chloride 100 ML IV ×2 (01:48→06:32)
[2023-12-17] MEDS: Levothyroxine Sodium 88 MCG TABLET PO (06:29)
[2023-12-17] MEDS: Nystatin Cream 15 GM TUBE 1 APPL TOPICAL ×2 (07:56→19:51)
[2023-12-17] MEDS: Cholecalciferol (Vitamin D3) 25 MCG TABLET PO (07:56)
[2023-12-17] MEDS: Omeprazole 20 MG CAPSULE.DR PO (07:56)
[2023-12-17] MEDS: 0.9 % Sodium Chloride Flush 3 ML SYRINGE IVFLUSH ×3 (07:56→19:52)
[2023-12-17] MEDS: Donepezil HCl 5 MG TABLET PO (07:56)
[2023-12-17] MEDS: Atorvastatin Calcium 40 MG TABLET PO (07:56)
[2023-12-17] MEDS: amLODIPine Besylate 5 MG TABLET PO (07:56)
[2023-12-17] MEDS: Doxycycline Monohydrate 100 MG CAPSULE PO ×2 (10:17→19:51)
[2023-12-17] MEDS: Ferrous Sulfate 324 MG TABLET.DR PO (10:17)
[2023-12-17] MEDS: cefuroxime axetiL 500 MG TABLET PO ×2 (10:17→19:51)
[2023-12-17 12:04] LABS: Glucose, Whole Blood 122 mg/dL (60-115)
[2023-12-17] MEDS: ondansetron HCL 4 MG/2 ML VIAL IVPUSH (12:04)
--- NOTE | 2023-12-17 12:40 | MHC.CM.PN ---
Addendum entered by Adalgisa Garcia, RN 12/17/23 13:00: CM RECEIVED CALL FROM PT'S DTR KEMAR, KEMAR UPDATED ON NEW PLAN AND REQUESTING TO SPEAK W/HOSPITALIST WHO HAS BEEN MADE AWARE VIA [employer]. Original Note: IMM 12/17/23 DELIVERED TO DTR/DURABLE POA KEMAR WILLAMS AT [phone], KEMAR NOW AGREEABLE TO DC TO [facility] AFTER CM SPOKE W/HER AND ENCOURAGED HER TO SPEAK W/DON SHIRA [phone] HOWEVER PT HAD RAPID RESPONSE AND WILL NOW REMAIN INPT OVER NIGHT FOR ADDITIONAL WORK UP, CM CONTACTED FACILITY AND LEFT DETAILED MESSAGE FOR SHIRA REGARDING CANCELLED DC PT'S ADMISSIONS LIAISON IS NOT IN TODAY, CM WILL CONT TO FOLLOW DC NEEDS.
[2023-12-17 13:17] LABS: OBS Int Ctl Valid YES; OBS1 NEGATIVE (NEGATIVE)
--- NOTE | 2023-12-17 14:29 | HO.PM.IMPN ---
Subjective Subjective Date of Service: 12/17/23 Interval History: Rapid response earlier today for likely vagal episode. Symptoms resolved however patient had large amount of diarrhea and some dry heaves. Returned to baseline shortly thereafter Review of Systems Unable to obtain Physical Exam Vital Signs: Vital Signs: Last Vital Signs Temp 98.2 F 12/16/23 23:19 Pulse 92 12/16/23 23:19 Resp 18 12/16/23 23:19 BP 158/82 H 12/16/23 23:19 Pulse Ox 94 12/16/23 23:19 O2 Del Method Room Air 12/16/23 23:19 BMI result Body Mass Index 29.6 Const: Other: Awake confused; pleasant Resp: Other: Diminished at bases with scant expiratory wheezes Cardio: Other: No S4; positive S1-S2; no S3 murmurs rubs or gallops GI: Other: Soft nontender nondistended normoactive bowel sounds Extrem: Other: No edema bilaterally Objective Data Active Medications Acetaminophen (Acetaminophen 325 Mg Tablet) 650 mg PO Q6H PRN PRN Reason: Pain, Mild (Pain Scale 1-3), fever or headache Last Admin: 12/15/23 10:20 Dose: 650 mg Documented By: ELISA Amlodipine Besylate (Amlodipine Besylate 5 Mg Tablet) 5 mg PO DAILY [facility]; Protocol Last Admin: 12/17/23 07:56 Dose: 5 mg Documented By: LEX Atorvastatin Calcium (Atorvastatin Calcium 40 Mg Tablet) 40 mg PO DAILY [facility] Last Admin: 12/17/23 07:56 Dose: 40 mg Documented By: LEX Calcium Carbonate (Calcium Carbonate 750 Mg Tab.Chew) 750 mg PO Q4H PRN PRN Reason: Heartburn Cefuroxime Axetil (Cefuroxime Axetil 500 Mg Tablet) 500 mg PO Q12H [facility] Last Admin: 12/17/23 10:17 Dose: 500 mg Documented By: LEX Donepezil HCl (Donepezil Hcl 5 Mg Tablet) 5 mg PO DAILY [facility] Last Admin: 12/17/23 07:56 Dose: 5 mg Documented By: LEX Doxycycline Monohydrate (Doxycycline Monohydrate 100 Mg Capsule) 100 mg PO Q12H [facility] Last Admin: 12/17/23 10:17 Dose: 100 mg Documented By: LEX Enoxaparin Sodium (Enoxaparin Sodium 40 Mg/0.4 Ml Syringe) 40 mg SUBCUT Q24H [facility] Last Admin: 12/16/23 22:24 Dose: 40 mg Documented By: GAYLE Ferrous Sulfate (Ferrous Sulfate 324 Mg Tablet.) 324 mg PO Q48H [facility] Last Admin: 12/17/23 10:17 Dose: 324 mg Documented By: LEX Levothyroxine Sodium (Levothyroxine Sodium 88 Mcg Tablet) 88 mcg PO DAILY@0600 [facility] Last Admin: 12/17/23 06:29 Dose: 88 mcg Documented By: GAYLE Magnesium Hydroxide (Milk Of Magnesia 30 Ml Oral.Susp) 30 ml PO DAILY PRN PRN Reason: Constipation Melatonin (Melatonin 3 Mg Tablet) 6 mg PO BEDTIME PRN PRN Reason: Insomnia Last Admin: 12/13/23 00:02 Dose: 6 mg Documented By: LEXII Nystatin (Nystatin Cream 15 Gm Tube) 1 appl TOPICAL BID [facility]; Protocol Last Admin: 12/17/23 07:56 Dose: 1 appl Documented By: LEX Omeprazole (Omeprazole 20 Mg Capsule.) 20 mg PO DAILY [facility] Last Admin: 12/17/23 07:56 Dose: 20 mg Documented By: LEX Ondansetron HCl (Ondansetron Hcl 4 Mg/2 Ml Vial) 4 mg IVPUSH Q8H PRN PRN Reason: Nausea and Vomiting Last Admin: 12/17/23 12:04 Dose: 4 mg Documented By: LEX Sodium Chloride (0.9 % Sodium Chloride Flush 3 Ml Syringe) 3 ml IVFLUSH QSHIFT [facility] Last Admin: 12/17/23 07:56 Dose: 3 ml Documented By: LEX Vitamin D (Cholecalciferol (Vitamin D3) 25 Mcg Tablet) 25 mcg PO DAILY [facility] Last Admin: 12/17/23 07:56 Dose: 25 mcg Documented By: LEX Labs 12/15/23 07:43 12/15/23 07:43 Labs: Laboratory Results - last 24 hr 12/17/23 12/17/23 12:00 12:55 POC Glucose 122 H Stool Occult Blood NEGATIVE Assessment and Plan (1) Pneumonia: Status: Acute (2) Acute encephalopathy: Status: Acute Plan 78F 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 . . Switch to oral doxycycline/Augmentin -question related to vagal episode will observe overnight -will need short-term rehab at minimum 2.Back pain -no acute fractures by CT -conservative therapy 3.Hypothryoid -continue outpatient supplements Lovenox Full code Requires ongoing hospitalization for follow-up monitoring after vagal episode Quality Stroke Does the patient have a stroke diagnosis?: No VTE Prior VTE?: No VTE Risk Level:: Medical - moderate - high VTE Device Contraindication: Treatment Not Indicated VTE Drug Contraindication: N/A - Med Ordered
[2023-12-17 14:38] LABS: Adenovirus F 40/41 Not Detected (Not Detect.); Astrovirus Not Detected (Not Detect.); Campylobacter Not Detected (Not Detect.); Cryptosporidium Not Detected (Not Detect.); Cyclospora cayetanensis Not Detected (Not Detect.); E. coli EAEC Not Detected (Not Detect.); E. coli EPEC Detected (Not Detect.); E. coli ETEC Not Detected (Not Detect.); E. coli STEC Not Detected (Not Detect.); Entamoeba histolytica Not Detected (Not Detect.); Giardia lamblia Not Detected (Not Detect.); Norovirus GI/GII Not Detected (Not Detect.); Plesiomonas shigelloides Not Detected (Not Detect.); Rotavirus A Not Detected (Not Detect.); Salmonella Not Detected (Not Detect.); Sapovirus Not Detected (Not Detect.); Shigella sp./EIEC Not Detected (Not Detect.); Vibrio Not Detected (Not Detect.); Vibrio Cholerae Not Detected (Not Detect.); Yersinia enterocolitica Not Detected (Not Detect.)
[2023-12-17 15:07] VITALS: BP 158/74; PULSE 81; RESP 16; TEMP 36.4; O2SAT 98
[2023-12-17 19:29] VITALS: BP 174/81; PULSE 88; RESP 18; TEMP 36.9; O2SAT 99
[2023-12-17 22:29] VITALS: BP 180/90; PULSE 86; RESP 18; TEMP 37; O2SAT 98
[2023-12-17 23:45] VITALS: BP 167/82; PULSE 92; RESP 18; TEMP 36.6; O2SAT 95
[2023-12-17] MEDS: Enoxaparin Sodium 40 MG/0.4 ML SYRINGE SUBCUT (23:46)
[2023-12-18] MEDS: Levothyroxine Sodium 88 MCG TABLET PO (06:08)
[2023-12-18 07:41] VITALS: BP 160/60; PULSE 85; RESP 12; TEMP 36.9; O2SAT 94
[2023-12-18] MEDS: 0.9 % Sodium Chloride Flush 3 ML SYRINGE IVFLUSH (09:27)
[2023-12-18] MEDS: Omeprazole 20 MG CAPSULE.DR PO (09:28)
[2023-12-18] MEDS: Atorvastatin Calcium 40 MG TABLET PO (09:28)
[2023-12-18] MEDS: Cholecalciferol (Vitamin D3) 25 MCG TABLET PO (09:28)
[2023-12-18] MEDS: Donepezil HCl 5 MG TABLET PO (09:28)
[2023-12-18] MEDS: Acetaminophen 325 MG TABLET 650 MG PO (09:28)
[2023-12-18] MEDS: Doxycycline Monohydrate 100 MG CAPSULE PO (09:28)
[2023-12-18] MEDS: amLODIPine Besylate 5 MG TABLET PO (09:28)
[2023-12-18] MEDS: Nystatin Cream 15 GM TUBE 1 APPL TOPICAL (09:28)
[2023-12-18] MEDS: cefuroxime axetiL 500 MG TABLET PO (09:28)
--- NOTE | 2023-12-18 09:42 | MHC.CLN ---
NUTRITION INTAKE AT MEALS VARIABLE, 25-75%. ADDING ENSURE BID TO INCREASE NUTRITIONAL INTAKE. SUPPLEMENT PROVIDES 700 KCALS, [address] TO MONITOR WEEKLY.
[2023-12-18 10:40] LABS: MANUAL DIFF FLAG NO
[2023-12-18 10:43] LABS: Basophils Absolute Auto 0.1 X10*3/uL (0.0-0.2); Basophils Percent Auto 0.4 % (0-2); Eosinophils Absolute Auto 0.1 X10*3/uL (0.0-0.4); Eosinophils Percent Auto 1.1 % (0-4); Hematocrit 32.6 % (37.0-47.0); Hemoglobin 10.9 g/dl (12.0-16.0); Imm Gran Abs Auto 0.16 X10*3/uL (0.00-0.03); Imm Gran Pct Auto 1.3 % (0.0-0.4); Lymphocytes Absolute Auto 0.7 X10*3/uL (1.2-4.9); Lymphocytes Percent Auto 5.9 % (20-40); Mean Corpuscular HGB Conc 33.4 g/dl (31.0-35.0); Mean Corpuscular Hemoglobin 34.2 pg (27.0-33.0); Mean Corpuscular Volume 102.2 fL (80.0-98.0); Mean Platelet Volume 9.5 fL (9.4-12.3); Monocytes Absolute Auto 1.1 X10*3/uL (0.1-1.2); Monocytes Percent Auto 8.9 % (2-11); Neutrophils Absolute Auto 10.4 x10*3/uL (2.0-8.3); Neutrophils Percent Auto 82.4 % (45-73); Platelet Count 484 X10*3/uL (160-400); Red Blood Count 3.19 X10*6/uL (4.20-5.50); Red Cell Distribution Width 12.9 % (11.0-16.0); White Blood Count 12.6 X10*3/uL (4.8-10.8)
[2023-12-18 11:04] LABS: Alanine Aminotransferase 60 U/L (0-31); Alkaline Phosphatase 153 U/L (39-117); Anion Gap 15 (12-20); Aspartate Amino Transferase 49 U/L (5-31); Bilirubin Total 0.3 mg/dL (0.0-1.0); Blood Urea Nitrogen 10 mg/dL (9-16); Carbon Dioxide 24 mmol/L (22-29); Chloride 100 mmol/L (96-108); Creatinine Clr Calc Pharmacy 78.4; Estimated Glomerular Filt Rate > 60; Glucose Fasting 170 mg/dL (60-99); Sodium 136 mmol/L (135-145); Total Protein 6.4 g/dL (6.5-8.0)
--- NOTE | 2023-12-18 11:50 | P.DS_ITS ---
DS: Providers Provider Date of Service: 12/18/23 Date of admission: 12/10/23 22:08 Date of discharge: 12/18/23 Primary care physician: Abigail Srinivasan NP Consults: 12/11/23 12:42 Consult to Wound Care Routine Reason for consultation: blanchable redness to buttocks DS: Diagnosis Discharge Diagnosis (1) Pneumonia: Status: Acute (2) Left rib fracture: Status: Acute (3) Acute encephalopathy: Status: Acute DS: Summary Hospital Course Hospital Course: 78-year-old female with pertinent history of Alzheimer's dementia, hypothyroidism, gastroesophageal reflux who was sent from [facility] for evaluation of fever and confusion. Patient does not know why she is at the facility. Unable to provide history. Patient is only oriented to self. Disoriented to place and time. Unable to obtain review of systems. Does have a history of UTI. In the emergency department, patient was found to be septic and imaging concerning for pneumonia with effusion. Patient was given IV crystalloids and initiated on empiric IV antibiotics in the ER. Also noted to have acute left 8th and 9th rib fractures Hospital Course Admitted to general medical floor and placed on IV vancomycin and ceftriaxone. Continued to be somewhat confused and minimally responsive however O2 requirement resolved. She was subsequently switched to doxy and Ceftin without issue. She did experience a vagal issue with some diarrhea; stool panel positive for EPEC. Patient able to maintain volume as documented by serial creatinines. Discussed with daughter with regards to assisted versus long-term care. Will transfer to long-term care for short-term rehab as tolerated. Further decisions based on her response and progress to therapy. At this point in time she is medically acceptable to be discharged to SNF Time Attestation Discharge Coordination Time (in mins): 35 Quality: Safe Use of Opioids Does Pt have an Active Cancer Diagnosis on the Problem List?: No Quality: Stroke Does the patient have a stroke diagnosis?: No Physical Exam Vital Signs: Vital Signs: Last Vital Signs Temp 98.4 F 12/18/23 07:41 Pulse 85 12/18/23 07:41 Resp 12 12/18/23 07:41 BP 160/60 H 12/18/23 07:41 Pulse Ox 94 12/18/23 07:41 O2 Del Method Room Air 12/17/23 23:45 O2 Flow Rate 2 12/17/23 22:29 BMI result Body Mass Index 29.6 Const: Other: Awake confused; pleasant Resp: Other: Diminished at bases with scant expiratory wheezes Cardio: Other: No S4; positive S1-S2; no S3 murmurs rubs or gallops GI: Other: Soft nontender nondistended normoactive bowel sounds Extrem: Other: No edema bilaterally DS: Data Data Completed and Pending Labs on day of discharge: Laboratory Results - last 24 hr 12/17/23 12/17/23 12/18/23 12:00 12:55 10:34 WBC 12.6 H RBC 3.19 L Hgb 10.9 L Hct 32.6 L MCV 102.2 H MCH 34.2 H MCHC 33.4 RDW 12.9 Plt Count 484 H D MPV 9.5 Immature Gran % (Auto) 1.3 H Neut % (Auto) 82.4 H Lymph % (Auto) 5.9 L [place] % (Auto) 8.9 Eos % (Auto) 1.1 Baso % (Auto) 0.4 Lymph # (Auto) 0.7 L [place] # (Auto) 1.1 Eos # (Auto) 0.1 Baso # (Auto) 0.1 Abs Immat Gran (auto) 0.16 H Absolute Neuts (auto) 10.4 H Absolute Nucleated RBC 0.000 Nucleated RBC % (auto) 0.0 Sodium 136 Potassium 3.0 L Chloride 100 Carbon Dioxide 24 Anion Gap 15 BUN 10 Creatinine 0.60 Estim Creat Clear Calc 78.4 Estimated GFR > 60 POC Glucose 122 H Fasting Glucose 170 H Calcium 9.0 Total Bilirubin 0.3 AST 49 H ALT 60 H Alkaline Phosphatase 153 H Total Protein 6.4 L Albumin 3.0 L Stool Occult Blood NEGATIVE Stl C. cayetanensis PCR Not Detected Stool Rotavirus A PCR Not Detected Stl Adenov F 40/41 PCR Not Detected Stool Astrovirus (PCR) Not Detected Stool Campylobacter PCR Not Detected Stool Cryptosporidium PCR Not Detected Stl Sh Tox Pr E STEC PCR Not Detected Stool E coli O157 PCR Not applicable Stl Enterotoxigenic E PCR Not Detected Stool EPEC (PCR) Detected A Stool EAEC (PCR) Not Detected Stl E. histolytica PCR Not Detected Stool Giardia Lamblia PCR Not Detected Stl P. shigelloides PCR Not Detected Stool Salmonella PCR Not Detected Stool Sapovirus (PCR) Not Detected Stl Shigella/EIEC PCR Not Detected St Y.enterocolitica PCR Not Detected Stool Vibrio (PCR) Not Detected Stl Vibrio cholerae PCR Not Detected Stl Norovirus GI/GII PCR Not Detected Preliminary micro results at discharge 12/13/23 21:45 Blood Culture - Preliminary Blood - Venous No growth after 48 hours. 12/13/23 21:42 Blood Culture - Preliminary Blood - Venous No growth after 48 hours. Discharge Plan Discharge Anticipated Discharge Date/Time: 12/18/23 11:45 Patient Disposition: Xfer SNF Discharge Diagnosis: Left lower lobe pneumonia Referrals: Abigail Srinivasan, DIRECT[employer] [Primary Care Provider] - 1 Week Discharge Medications: New amlodipine 5 mg Tablet 5 mg PO DAILY Qty: 30 0RF Protocol: Hold for SBP< HOLD for SBP < : 90 doxycycline monohydrate 100 mg Capsule 100 mg PO Q12H Qty: 14 0RF cefuroxime axetil 500 mg Tablet 500 mg PO Q12H Qty: 14 0RF Continued atorvastatin 40 mg Tablet 40 mg PO DAILY omeprazole 20 mg Capsule,Delayed Release(Dr/Ec) 20 mg PO DAILY vitamin B complex Capsule 1 cap PO DAILY ferrous sulfate 325 mg (65 mg iron) Capsule, Extended Release 325 mg PO Q48H cholecalciferol (vitamin D3) [Vitamin D3] 25 mcg (1,000 unit) Capsule 25 mcg PO DAILY donepezil 5 mg Tablet 5 mg PO DAILY levothyroxine 88 mcg Tablet 88 mcg PO DAILY Discharge Orders: Discharge Order (Routine); Ordered 12/18/23 Ordered By: Cameron Shannon Diet: Advance to usual diet Activity on Discharge: As tolerated Stand Alone Forms: Patient Portal Discharge page Print Language: Spanish Care Plan Goals: Complete course of doxycycline and Ceftin as ordered to treat pneumonia Health Concerns: Resume all medicine as outlined on transfer sheet Plan of Treatment: Therapies as deemed necessary and appropriate by receiving facility Assessment: See discharge summary
[2023-12-18] MEDS: Potassium Chloride Packet 20 MEQ PACKET 40 MEQ PO (12:10)
--- NOTE | 2023-12-18 12:46 | MHC.CM.PN ---
Addendum entered by Adalgisa Garcia RN 12/18/23 15:17: PER HOSPITALIST DC SUMMARY ADDENDED TO INCLUDE INVOKED HCP Original Note: PT MEDICALLY CLEARED FOR DC TO [facility] FOR STR/COMP DAYS VIA [facility] FOR BLS TRANSPORT, CM CONTACTED PT'S DTR [facility] [phone] WHO IS AGREEABLE TO PLAN AND IMM DELIVERED 12/17/23.
== END 2023-12-18 15:36 | disposition skilled nursing facility (03) | DRG 871 ==
LOC: HO.ED 22:53 → HO.EDOVER 22:59 → HO.S3 12-11 00:10
PROVIDERS: Internal Medicine; Admitting Provider Student in an Organized Health Care Education/Training Program; Emergency Provider Emergency Medicine Emergency Medical Services; PCP Nurse Practitioner Family; Visit Provider Hospitalist
DX: A41.9 Sepsis, unspecified organism (principal); G93.41 Metabolic encephalopathy; J18.9 Pneumonia, unspecified organism; S22.42XA Multiple fractures of ribs, left side, initial encounter for closed fracture; F10.27 Alcohol dependence with alcohol-induced persisting dementia; A04.0 Enteropathogenic Escherichia coli infection; D75.89 Other specified diseases of blood and blood-forming organs; G31.83 Neurocognitive disorder with Lewy bodies; F02.80 Dementia in other diseases classified elsewhere, unspecified severity, without behavioral disturbance, psychotic disturbance, mood disturbance, and anxiety; R55 Syncope and collapse; K21.9 Gastro-esophageal reflux disease without esophagitis; E78.2 Mixed hyperlipidemia; E03.9 Hypothyroidism, unspecified; W19.XXXA Unspecified fall, initial encounter; R29.6 Repeated falls; Z20.822 Contact with and (suspected) exposure to COVID-19; Z79.890 Hormone replacement therapy; Z79.899 Other long term (current) drug therapy
CPT/HCPCS: 0241U; 36415; 70450; 71045; 71250; 72128; 72131; 73100; 74176; 80048; 80053; 80076; 80202; 81001; 82247; 82272; 82607; 82746; 82947; 83605; 83615; 83735; 84443; 85025; 85027; 85610; 85652; 85730; 86140; 87040; 87507; 92526; 92610; 94799; 97163; 97530; 99285; J0456; J0696; J1650; J2405; J2543; J3370; P9047

== ENCOUNTER → 2023-12-10 22:08 | Outpatient (BNV) | payer MEDICARE, OTHER, SELFPAY | PROVIDERS: Admitting Provider Student in an Organized Health Care Education/Training Program; Emergency Provider Emergency Medicine Emergency Medical Services; Visit Provider Student in an Organized Health Care Education/Training Program | DX: J18.9 Pneumonia, unspecified organism (principal); S22.32XA Fracture of one rib, left side, initial encounter for closed fracture; G93.40 Encephalopathy, unspecified | CPT/HCPCS: 99223; 99232; 99239 ==

== ENCOUNTER 2024-10-20 17:27 | Inpatient (IN) | payer MEDICARE, SELFPAY ==
[2024-10-20] VITALS (11 sets, daily range): BP systolic 114–154; BP diastolic 55–69; PULSE 76–99; RESP 16–27; TEMP 36.5–37.7; O2SAT 78–95; BMI 29.4
--- NOTE | ~2024-10-20 | XR_ITS ---
CLINICAL HISTORY: acute aspiration 1 view chest x-ray. Comparison: CR/SR - XR CHEST 1V - 10/27/24 11:31 EDT CR - XR CHEST 1V - 10/22/24 08:49 EDT Findings: Low lung volumes. No improvement in the diffuse bilateral patchy interstitial and airspace disease No pneumothorax. Heart size is difficult to assess. Hiatal hernia. No acute fracture. No mediastinal shift. Impression: 1. No improvement in the diffuse bilateral patchy interstitial and airspace disease either cardiogenic pneumonic or related to ARDS. Poor inspiratory effort. This document has been electronically signed by: Asael Maldonado MD on 10/30/2024 10:06:51
--- NOTE | ~2024-10-20 | XR_ITS ---
EXAMINATION: XR CHEST 1 VIEW HISTORY: persistent hypoxia, pneumonia COMPARISON: Comparison is made with the prior examination dated 10/22/2024. FINDINGS: A single AP portable view of the chest performed at 11:31 AM is submitted. Again seen are diffuse multifocal opacities throughout the lungs which may represent pneumonia, pulmonary edema, or ARDS. There is a probable small left pleural effusion. There is no pneumothorax. The heart is normal in size. There is a large hiatal hernia. The bones are intact. XR/XR chest 1V IMPRESSION: Diffuse multifocal airspace opacities throughout the lungs consistent with pneumonia, ARDS, or pulmonary edema without significant change. Large hiatal hernia. Electronically signed by: Gomez Lock MD 10/27/2024 12:35 PM EDT
--- NOTE | ~2024-10-20 | XR_ITS ---
CLINICAL HISTORY: f u pna 1 view chest x-ray Comparison: 10/20/2024 Findings: Portions of the exam are obscured by overlying material. There is persistent diffuse consolidation. The overall appearance of the chest is unchanged. IMPRESSION: 1. No significant change from prior study. This document has been electronically signed by: Samm Crandall MD on 10/22/2024 09:23:21
--- NOTE | ~2024-10-20 | XR_ITS ---
CLINICAL HISTORY: dyspnea 1 view chest x-ray Comparison: Chest CT from 12/10/2023 Findings: New consolidation in the right upper lobe concerning for lobar pneumonia. Postobstructive pneumonia also considered. Additional bilateral opacities are nonspecific and may reflect pulmonary edema or multifocal pneumonia. Small pleural effusions noted, left worse than right. No pneumothorax. Mediastinum is mostly obscured with likely mild cardiomegaly and moderate hiatal hernia. Deformity of the right shoulder appears old/chronic with degenerative changes of the both shoulders and mild superior subluxation of the right glenohumeral joint. Superficial opacities also noted. IMPRESSION: 1. Consolidation in the right upper lobe concerning for pneumonia. Recommend attention on follow-up to ensure resolution. 2. Small pleural effusions with a additional bilateral pulmonary opacities as can be seen with pulmonary edema and multifocal pneumonia This document has been electronically signed by: Rikki Worley MD on 10/20/2024 19:59:33
--- NOTE | 2024-10-20 17:50 | ECG_ITS ---
Test Reason : SOB Blood Pressure : */* mmHG Vent. Rate : 103 BPM Atrial Rate : 103 BPM P-R Int : 154 ms QRS Dur : 86 ms QT Int : 348 ms P-R-T Axes : 15 16 31 degrees QTcB Int : 455 ms Sinus tachycardia with Premature atrial complexes Nonspecific ST abnormality Abnormal ECG No previous ECGs available Referred By: Generic ED Physician Electronically Signed By: HUMZA CANO MD
--- NOTE | 2024-10-20 17:59 | ED.SOB ---
HPI - SOB/Dyspnea General Chief Complaint: Upper Respiratory Symptoms Stated Complaint: snf diagnosed pneumonia Time Seen by Provider: 10/20/24 17:46 Source: EMS Mode of arrival: EMS Limitations: other ( Dementia) History of Present Illness ED Provider: HPI Narrative: This is an 79-year-old woman with history of Lewy body dementia presenting from assisted living facility, yesterday she was diagnosed with pneumonia had a chest x-ray, was started on antibiotics today has had worsening respiratory issues, becoming tachypneic and then becoming hypoxic, EMS provided her with nebulizers she presented on non-rebreather. Patient is alert to self location, but was not really able to provide full history to me in so she is somewhat of a limited historian. MD elicited complaint: shortness of breath Related Data Home Medications ?Medication ?Instructions ?Recorded ?Confirmed atorvastatin 40 mg tablet 40 mg PO DAILY 12/11/23 12/11/23 cholecalciferol (vitamin D3) 25 25 mcg PO DAILY 12/11/23 12/11/23 mcg (1,000 unit) capsule (Vitamin D3) donepezil 5 mg tablet 5 mg PO DAILY 12/11/23 12/11/23 ferrous sulfate 325 mg (65 mg 325 mg PO Q48H 12/11/23 12/11/23 iron) capsule,extended release levothyroxine 88 mcg tablet 88 mcg PO DAILY 12/11/23 12/11/23 omeprazole 20 mg capsule,delayed 20 mg PO DAILY 12/11/23 12/11/23 release vitamin B complex 1 cap PO DAILY 12/11/23 12/11/23 Previous Rx's ?Medication ?Instructions ?Recorded amlodipine 5 mg tablet 5 mg PO DAILY #30 tabs 12/18/23 cefuroxime axetil 500 mg tablet 500 mg PO Q12H #14 tabs 12/18/23 doxycycline monohydrate 100 mg 100 mg PO Q12H #14 caps 12/18/23 capsule Allergies Allergy/AdvReac Type Severity Reaction Status Date / Time No Known Allergies Allergy Verified 10/20/24 17:42 Review of Systems Constitutional: Constitutional: Reports as per HPI [facility] Past Medical History Medical History (Updated 10/20/24 @ 19:42 by Milton Jerry DO) Hypothyroid Alcohol dependence Lewy body dementia Acute encephalopathy Pneumonia Sepsis Social History Social History Household Members: None Housing Other:: independent living Do you presently have visiting nurse or other home services: No Comment: NOT IMPULSIVE OR ATTEMPTING TO GET OOB Patient Tobacco Use Status: Tobacco use Unknown Advance Directives: Yes Advance Directives on File: Yes Advance Directives Date on File: 12/10/23 service: No Physical Exam Vital Signs: Vital Signs: Last Vital Signs Temp 99.9 F 10/20/24 19:13 Pulse 94 10/20/24 19:13 Resp 20 10/20/24 19:13 BP 114/65 10/20/24 19:13 Pulse Ox 91 L 10/20/24 19:13 O2 Del Method High Flow Nasal C annula 10/20/24 19:13 FiO2 50 10/20/24 19:13 Oxygen Flow Rate 4 10/20/24 17:35 BMI result Body Mass Index 29.4 Const: Other: ? Gen: elderly woman, s anxious affect ? HEENT: dry oral mucosa ? Neck: Supple, no LAD ? CV: tachycardic, fast irregular heart rate ? Resp: rhonchorous at the bases but at the apices as well bilaterally ? Abd: Bowel sounds are present, no tenderness no rebound no rigidity ? MSK: FROM, strength 5/5 all extremities ? Skin: Warm, dry, intact, ? Neuro: Alert and oriented x2, moving upper and lower extremities symmetrically, no obvious facial asymmetry noted Medications Administered Generic Name Dose Route Start Last Admin Trade Name Freq PRN Reason Stop Dose Admin Vancomycin HCl 2,000 mg in 500 mls @ 250 mls/hr 10/20/24 18:08 10/20/24 18:24 Vancomycin/Ns IV 10/20/24 20:07 250 mls/hr ONCE ONE Administration Discontinued Medications Generic Name Dose Route Start Last Admin Trade Name Freq PRN Reason Stop Dose Admin Piperacillin Sod/Tazobactam 50 mls @ 100 mls/hr 10/20/24 18:02 10/20/24 18:23 Sod 3.375 gm/ Sodium Chloride IV 10/20/24 18:31 100 mls/hr ONCE ONE Administration Sodium Chloride 2,334 mls @ 2,334 mls/hr 10/20/24 18:02 10/20/24 18:23 Ns 30 ml/kg infuse over 1 hr (2334 ml) 10/20/24 19:01 2,334 mls/hr IV Administration .Q1H STA Acetaminophen 1,000 mg in 100 mls @ 400 mls/hr 10/20/24 19:12 10/20/24 19:16 Ofirmev IV 10/20/24 19:26 400 mls/hr ONCE ONE Administration Medical Decision Making Medical Decision Making [facility] Narrative: 18:00 severe sepsis suspected, patient is with respiratory failure, she is tachypneic, tachycardic, just had his chest x-ray I reviewed report, suspicious for pneumonia, we will initiate 30 cc/kilos IV fluids, broad-spectrum antibiotics, she has a MOLST form with her that she is a DNR DNI, I will speak to her family as well, patient at this time is alert oriented, she knows she is in the hospital but was not able to tell him why she is in the hospital. She was started on antibiotics yesterday and steroids received nebulizer treatments, but was hypoxic to 70s on room air. This was confirmed at bedside. although patient is DNI, with pneumonia this may be something to discuss with the family because if she is not going to respond to high-flow nasal cannula and I did not feel that she would do well on BiPAP for prolonged amount of time due to an infectious etiology then we will be reasonable to intubate her but this is going to be discussed with her family and patient. 1900 Focused exam by , patient is improving, tolerating high-flow nasal cannula. Trying to expedite her chest x-ray. Differential Diagnosis Differential Diagnoses: The differential diagnosis associated with the presentation includes Pneumonia, CHF, septic shock, pneumothorax, dehydration, CORDELL Lab Data [facility] Lab Attestation statement: I reviewed the patient's lab results. 10/20/24 18:11 10/20/24 18:11 Labs: Lab Results 10/20/24 10/20/24 10/20/24 Range/Units 18:11 18:17 18:36 WBC 17.5 H (4.8-10.8) X10*3/uL RBC 3.88 L D (4.20-5.50) X10*6/uL Hgb 12.3 (12.0-16.0) g/dl Hct 36.4 L (37.0-47.0) % MCV 93.8 (80.0-98.0) fL MCH 31.7 (27.0-33.0) pg MCHC 33.8 (31.0-35.0) g/dl RDW 15.2 (11.0-16.0) % Plt Count 317 D (160-400) X10*3/uL MPV 10.0 (9.4-12.3) fL Immature Gran % (Auto) Cancelled Neut % (Auto) Cancelled Lymph % (Auto) Cancelled [place] % (Auto) Cancelled Eos % (Auto) Cancelled Baso % (Auto) Cancelled Lymph # (Auto) Cancelled [place] # (Auto) Cancelled Eos # (Auto) Cancelled Baso # (Auto) Cancelled Abs Immat Gran (auto) Cancelled Absolute Neuts (auto) Cancelled Absolute Nucleated RBC 0.000 (0.0-0.012) X10*3/uL Nucleated RBC % (auto) 0.0 (0.0-0.2) /100WBC Neutrophils % (Manual) 86 H (45-73) % Band Neutrophils % 10 H (3-5) % Lymphocytes % (Manual) 3 L (20-40) % Monocytes % (Manual) 1 L (2-11) % Abs Neuts (Manual) 16.8 H (2.0-8.3) X10*3/uL Lymphocytes # (Manual) 0.5 L (1.2-4.9) X10*3/uL Monocytes # (Manual) 0.2 (0.1-1.2) X10*3/uL Hypersegmented Neuts PRESENT Toxic Vacuolation PRESENT Platelet Estimate NORMAL (NORMAL) Plt Morphology Comment NORMAL RBC Morphology NOTED Hypochromasia 1+ (5-14) /OIF Microcytosis 1+ (5-14) /OIF [place] Cells 1+ (0-2) /OIF VBG pH 7.43 (7.32-7.43) VBG pCO2 37 mmHg VBG pO2 48 mmHg VBG HCO3 25 (22-26) mmol/L VBG O2 Saturation 70.0 % VBG Base Excess 1.1 mmol/L Sodium 135 (135-145) mmol/L Potassium 3.5 (3.3-5.1) mmol/L Chloride 100 (96-108) mmol/L Carbon Dioxide 23 (22-29) mmol/L Anion Gap 16 (12-20) BUN 12 (9-16) mg/dL Creatinine 0.66 (0.5-1.4) mg/dL Estim Creat Clear Calc 67.4 Estimated GFR > 60 Random Glucose 190 H (60-115) mg/dL Lactic Acid 2.7 H* (0.5-2.0) mmol/L Calcium 9.3 (8.4-10.2) mg/dL Total Bilirubin 0.7 (0.0-1.0) mg/dL AST 46 H (5-31) U/L ALT 30 (0-31) U/L Alkaline Phosphatase 110 (39-117) U/L Troponin I High Sens 13.2 (<3.5-17.0) ng/L Total Protein 6.9 (6.5-8.0) g/dL Albumin 3.4 L (3.5-5.0) g/dL Lipase 8 (8-78) U/L Influenza Type A (PCR) NEGATIVE (Negative) Influenza Type B (PCR) NEGATIVE (Negative) RSV RNA Qual (PCR) NEGATIVE (Negative) SARS-CoV-2 RNA (RT-PCR) NEGATIVE (Negative) Independent Interpretation I performed an independent interpretation of an: EKG (103 Otherwise normal ECG without dysrhythmia, AV constantin blocks or ST-T changes to suspect underlying ACS, my independent interpretation) and Plain X-Ray ( significant consolidation right upper lobe) Critical Care Time Critical Care Time Total Critical Care Time: 60 Attestation: Time is exclusive of separately billable procedures. Time includes: direct patient care, patient reassessment, coordination of patient care, interpretation of data (laboratory data, pulse oximetry, arterial blood gases and chest xrays), review of patient's medical records, medical consultation and documentation of patient care. Procedures excluded from critical care time: central intravenous line placement and electrocardiography. Discharge Plan Discharge Patient Disposition: Admitted As Inpatient Print Language: Maori
[2024-10-20 18:22] LABS: VBG Base Excess 1.1 mmol/L; VBG HCO3 25 mmol/L (22-26); VBG pCO2 37 mmHg; VBG pH 7.43 (7.32-7.43); VBG pO2 48 mmHg
[2024-10-20 18:22] LABS: Venous Blood Gas Refer to POC result
[2024-10-20] MEDS: Piperacillin Sodium/Tazobactam 3.375 GM in 0.9 % Sodium Chloride 50 ML IV (18:23)
[2024-10-20] MEDS: 0.9 % Sodium Chloride 2,334 ML 2334 ML IV (18:23)
[2024-10-20] MEDS: vancomycin/NS 2,000 MG/500 ML PLAST..BAG 250 MG IV (18:24)
[2024-10-20 18:38] LABS: Alanine Aminotransferase 30 U/L (0-31); Albumin Level 3.4 g/dL (3.5-5.0); Alkaline Phosphatase 110 U/L (39-117); Anion Gap 16 (12-20); Aspartate Amino Transferase 46 U/L (5-31); Bilirubin Total 0.7 mg/dL (0.0-1.0); Blood Urea Nitrogen 12 mg/dL (9-16); Calcium 9.3 mg/dL (8.4-10.2); Carbon Dioxide 23 mmol/L (22-29); Chloride 100 mmol/L (96-108); Creatinine Clr Calc Pharmacy 67.4; Estimated Glomerular Filt Rate > 60; Glucose Random 190 mg/dL (60-115); Lipase 8 U/L (8-78); Potassium 3.5 mmol/L (3.3-5.1); Sodium 135 mmol/L (135-145); Total Protein 6.9 g/dL (6.5-8.0)
[2024-10-20 18:44] LABS: Troponin-I High Sensitivity 13.2 ng/L (<3.5-17.0)
[2024-10-20 18:59] LABS: Hematocrit 36.4 % (37.0-47.0); Hemoglobin 12.3 g/dl (12.0-16.0); Mean Corpuscular HGB Conc 33.8 g/dl (31.0-35.0); Mean Corpuscular Hemoglobin 31.7 pg (27.0-33.0); Mean Corpuscular Volume 93.8 fL (80.0-98.0); Platelet Count 317 X10*3/uL (160-400); Red Blood Count 3.88 X10*6/uL (4.20-5.50); Red Cell Distribution Width 15.2 % (11.0-16.0)
[2024-10-20 19:02] LABS: WBC ABN SCTR FOR CBC 1
[2024-10-20 19:10] LABS: Lactic Acid 2.7 mmol/L (0.5-2.0)
[2024-10-20] MEDS: Acetaminophen 1,000 MG/100 ML PIGGYBACK 400 MG IV (19:16)
--- NOTE | 2024-10-20 19:18 | MHC.EDTECH ---
This pct assumed care of Patient at 1845 ,Patient awake alert and Oriented ,vitals taken ,Patient belongings list done .[place] within Pt reach ,all safety measure in Place .Plan of care continue .
[2024-10-20 19:27] LABS: Neutrophils Percent Manual 86 % (45-73)
[2024-10-20 19:27] LABS: Influenza A PCR NEGATIVE (Negative); Influenza B PCR NEGATIVE (Negative); Resp Syncy Virus RNA Qual PCR NEGATIVE (Negative); SARS COV2 PCR INHOUSE NEGATIVE (Negative)
[2024-10-20 19:30] LABS: Band Neutrophils Percent 10 % (3-5); Lymphocytes Percent Manual 3 % (20-40); Microcytosis 1+ (5-14) /OIF; Monocytes Percent Manual 1 % (2-11); Platelet Estimate NORMAL (NORMAL)
[2024-10-20 19:31] LABS: Burr Cells 1+ (0-2) /OIF; Platelet Morphology Comment NORMAL
[2024-10-20 19:32] LABS: Hypersegmented Neutrophils PRESENT; Hypochromasia 1+ (5-14) /OIF; Toxic Vacuolation PRESENT
[2024-10-20 19:43] LABS: Lymphocytes Absolute Manual 0.5 X10*3/uL (1.2-4.9); Monocytes Absolute Manual 0.2 X10*3/uL (0.1-1.2); Neutrophils Absolute Manual 16.8 X10*3/uL (2.0-8.3); White Blood Count 17.5 X10*3/uL (4.8-10.8)
[2024-10-20 19:44] LABS: RBC Morphology NOTED
[2024-10-20 20:16] LABS: Reflex Lactate? Lactic Acid Added
--- NOTE | 2024-10-20 20:41 | PHA.MEDREC ---
Pharmacy Consult ? Medication Reconciliation Pharmacy has completed the medication reconciliation. Utilized med list from [facility]
[2024-10-20 21:00] LABS: ~Lactic Acid-LAB USE ONLY 1.7 mmol/L (0.5-2.0)
[2024-10-20 22:04] LABS: B Type Natriuretic Peptide 116 pg/mL (<100)
--- NOTE | 2024-10-20 22:40 | PM.IMHP ---
History of Present Illness Date of Service: 10/20/24 Attending physician on admission: Bryan Edouard Chief Complaint: Shortness on breath Christen Rubio is 79 years old woman with past medical history significant for dementia, hyperlipidemia, hypothyroidism, essential hypertension, asthma and PUD/GERD was brought to the emergency department from nursing facility due to worsening shortness on breath and low oxygen saturation, 80s on room air. He is a vague historian but she was able to answer simple questions. She denied any chest pain, cough, headache, sore throat, nausea or abdominal pain. She also denied any pain with urination. She denied tobacco smoking, alcohol abuse or illicit drug use. Paperwork from nursing facility: CXR done yesterday showed right upper infiltrates, small left pleural effusion, possible superjacent atelectasis and large hiatal hernia. Treatment with ceftriaxone 1 g IM, ceftriaxone and prednisone was initiated. In the ED, she was found to have an oxygen saturation 70% on room air and tachypnea. There is no tachycardia or fever. Blood workup was remarkable for leukocytosis of 17.5, hemoglobin and platelets are normal. There is mild lactic acidosis of 2.7 that normalized. Venous blood gas showed no respiratory acidosis. There are no significant electrolyte imbalances. Renal and liver functions are normal. BNP is only 116 and lipase is normal. Viral testing for influenza, RSV and COVID-19 is negative. ECG showed mild tachycardia, 103 beats per minute and no acute ischemic changes. CXR showed consolidation in the right upper lobe concerning for pneumonia, small pleural effusions with bilateral pulmonary opacities: Pulmonary edema vs multifocal pneumonia. ED tx: Zosyn 3.375 g IV, NS bolus 2334 mL, vancomycin 2 g, and Tylenol 1 g IV. Review of Systems Review of Systems: All 12 systems were reviewed and normal except as noted in HPI. [facility] Medical History (Updated 10/20/24 @ 23:27 by Bryan Edouard MD) Hypothyroid Alcohol dependence Lewy body dementia Acute encephalopathy Pneumonia Sepsis Social History Household Members: None Housing Other:: independent living Do you presently have visiting nurse or other home services: No Comment: NOT IMPULSIVE OR ATTEMPTING TO GET OOB Patient Tobacco Use Status: Tobacco use Unknown Smoked in Last 30 Days: No Use of substances other than those prescribed or required for medical reasons: No Advance Directives: Yes Advance Directives on File: Yes Advance Directives Date on File: 12/10/23 service: No Meds Allergies Allergy/AdvReac Type Severity Reaction Status Date / Time No Known Allergies Allergy Verified 10/20/24 17:42 Active Medications: Current Medications Acetaminophen (Acetaminophen 325 Mg Tablet) 975 mg PO Q6H PRN PRN Reason: Pain, Mild 1-3,fever,headache Sodium Chloride (0.9 % Sodium Chloride Flush 3 Ml Syringe) 3 ml IVFLUSH QSHIFT [facility] Home Medications ?Medication ?Instructions ?Recorded ?Confirmed ?Last Taken ?Type cholecalciferol (vitamin D3) 25 25 mcg PO DAILY 12/11/23 10/20/24 Unknown History mcg (1,000 unit) capsule (Vitamin D3) donepezil 5 mg tablet 5 mg PO DAILY 12/11/23 10/20/24 Unknown History levothyroxine 88 mcg tablet 88 mcg PO DAILY@0600 12/11/23 10/20/24 Unknown History omeprazole 20 mg capsule,delayed 20 mg PO DAILY 12/11/23 10/20/24 Unknown History release vitamin B complex 1 cap PO DAILY 12/11/23 10/20/24 Unknown History Lactobacillus acidophilus 10 10,000 mmu cells PO BID 10/20/24 10/20/24 Unknown History billion cell capsule (Probiotic) acetaminophen 325 mg tablet 325 mg PO Q8H PRN Mild Pain (Scale 10/20/24 10/20/24 Unknown History Score 1-4) albuterol sulfate 2.5 mg/3 mL 2.5 mg inhalation Q4H PRN Wheezing 10/20/24 10/20/24 Unknown History (0.083 %) solution for nebulization albuterol sulfate 90 mcg/actuation 2 puff inhalation Q4-6H PRN 10/20/24 10/20/24 Unknown History aerosol inhaler Shortness Of Breath Or Wheezing azithromycin 250 mg tablet 250 mg PO DAILY 10/20/24 10/20/24 10/20/24 History (Zithromax Z-Herrera) cefuroxime axetil 500 mg tablet 1,000 mg PO DAILY 10/20/24 10/20/24 10/19/24 History citalopram 10 mg tablet 10 mg PO DAILY 10/20/24 10/20/24 Unknown History diclofenac sodium 1 % topical gel 4 g topical QID 10/20/24 10/20/24 Unknown History ferrous sulfate 325 mg (65 mg 325 mg PO Q48H 10/20/24 10/20/24 Unknown History iron) tablet fluticasone 100 mcg-salmeterol 50 1 inh inhalation BID 10/20/24 10/20/24 Unknown History mcg/dose blistr powdr for inhalation (Advair Diskus) fluticasone propionate 50 1 spray intranasal BID PRN stuffy 10/20/24 10/20/24 Unknown History mcg/actuation nasal nose spray,suspension furosemide 20 mg tablet 20 mg PO DAILY 10/20/24 10/20/24 Unknown History lidocaine 4 % topical patch 1 patch topical BID PRN lower back 10/20/24 10/20/24 Unknown History pain montelukast 10 mg tablet 10 mg PO DAILY 10/20/24 10/20/24 Unknown History (Singulair) prednisone 10 mg tablet 10 mg PO DIRECTED 10/20/24 10/20/24 Unknown History Physical Exam Vital Signs and Narrative: Vital Signs: Last Vital Signs Temp 97.7 F 10/20/24 21:53 Pulse 87 10/20/24 21:53 Resp 16 10/20/24 21:53 BP 132/60 10/20/24 21:53 Pulse Ox 95 10/20/24 21:53 O2 Del Method High Flow Nasal C annula 10/20/24 21:53 O2 Flow Rate 50 10/20/24 21:53 FiO2 50 10/20/24 19:13 Oxygen Flow Rate 4 10/20/24 17:35 BMI result Body Mass Index 29.4 Constitutional - Awake and Alert X3. Ill appearance. Afebrile. Nasal cannula in place high-flow. HEENT - PERRL, EOMI Heart - S1S2, RRR, No murmurs Lungs - Normal lung expansion, Normal respiratory effort, No respiratory distress. Tachypneic. Decreased breath sounds. No wheezing. No crackles. Abdomen - NT / ND; +BS; No rebound or guarding Extremities - edema to the lower extremities. Musculoskeletal - generalized atrophy. Skin - Warm/Dry. Alar. No jaundice. Neurological - Alert & oriented x3. No facial droop. No focal weakness grossly noted. Normal speech. Psychological - Depressed affect Results Labs 10/20/24 18:11 10/20/24 18:11 Labs: Laboratory Results - last 24 hr 10/20/24 10/20/24 10/20/24 18:11 18:17 18:36 MCV 93.8 MCH 31.7 MCHC 33.8 RDW 15.2 Plt Count 317 D MPV 10.0 Immature Gran % (Auto) Cancelled Neut % (Auto) Cancelled Lymph % (Auto) Cancelled Isabel[place] % (Auto) Cancelled Eos % (Auto) Cancelled Baso % (Auto) Cancelled Lymph # (Auto) Cancelled Isabel[place] # (Auto) Cancelled Eos # (Auto) Cancelled Baso # (Auto) Cancelled Abs Immat Gran (auto) Cancelled Absolute Neuts (auto) Cancelled Absolute Nucleated RBC 0.000 Nucleated RBC % (auto) 0.0 Neutrophils % (Manual) 86 H Band Neutrophils % 10 H Lymphocytes % (Manual) 3 L Monocytes % (Manual) 1 L Abs Neuts (Manual) 16.8 H Lymphocytes # (Manual) 0.5 L Monocytes # (Manual) 0.2 Hypersegmented Neuts PRESENT Toxic Vacuolation PRESENT Platelet Estimate NORMAL Plt Morphology Comment NORMAL RBC Morphology NOTED Hypochromasia 1+ (5-14) Microcytosis 1+ (5-14) Thorp Cells 1+ (0-2) VBG pH 7.43 VBG pCO2 37 VBG pO2 48 VBG HCO3 25 VBG O2 Saturation 70.0 VBG Base Excess 1.1 Anion Gap 16 Estim Creat Clear Calc 67.4 Estimated GFR > 60 Random Glucose 190 H Lactic Acid 2.7 H* Lactic Acid F/U @ 2Hr Calcium 9.3 Total Bilirubin 0.7 AST 46 H ALT 30 Alkaline Phosphatase 110 Troponin I High Sens 13.2 B-Natriuretic Peptide 116 H Total Protein 6.9 Albumin 3.4 L Lipase 8 Influenza Type A (PCR) NEGATIVE Influenza Type B (PCR) NEGATIVE RSV RNA Qual (PCR) NEGATIVE SARS-CoV-2 RNA (RT-PCR) NEGATIVE 10/20/24 20:41 MCV MCH MCHC RDW Plt Count MPV Immature Gran % (Auto) Neut % (Auto) Lymph % (Auto) Isabela % (Auto) Eos % (Auto) Baso % (Auto) Lymph # (Auto) Isabela # (Auto) Eos # (Auto) Baso # (Auto) Abs Immat Gran (auto) Absolute Neuts (auto) Absolute Nucleated RBC Nucleated RBC % (auto) Neutrophils % (Manual) Band Neutrophils % Lymphocytes % (Manual) Monocytes % (Manual) Abs Neuts (Manual) Lymphocytes # (Manual) Monocytes # (Manual) Hypersegmented Neuts Toxic Vacuolation Platelet Estimate Plt Morphology Comment RBC Morphology Hypochromasia Microcytosis [place] Cells VBG pH VBG pCO2 VBG pO2 VBG HCO3 VBG O2 Saturation VBG Base Excess Anion Gap Estim Creat Clear Calc Estimated GFR Random Glucose Lactic Acid Lactic Acid F/U @ 2Hr 1.7 Calcium Total Bilirubin AST ALT Alkaline Phosphatase Troponin I High Sens B-Natriuretic Peptide Total Protein Albumin Lipase Influenza Type A (PCR) Influenza Type B (PCR) RSV RNA Qual (PCR) SARS-CoV-2 RNA (RT-PCR) Assessment and Plan (1) Acute hypoxic respiratory failure: Status: Acute (2) Multifocal pneumonia: Status: Acute Plan Christen Rubio is 79 y/o woman admitted with: Hypoxic respiratory failure secondary to multifocal pneumonia associated with acute asthma exacerbation. Admit to hospitalist service. Telemetry. Pulse oximetry. Continue supplemental oxygen with high-flow to keep O2 sats > 90%. Continue empiric IV antibiotic therapy with vancomycin and Zosyn. Continue bronchodilator therapy and IV steroids. Continue montelukast. Dementia. Continue donepezil. Depression. Continue citalopram/alternative. GERD. Protonix IV. Hypothyroidism. Continue levothyroxine. Essential hypertension. Continue amlodipine. Code status: DNR/DNI (per MOLST form -noninvasive ventilation and IV hydration okay, no dialysis, no artificial nutrition). Contacted patient's daughter, Gunjan Rubio/HCP and she is agreeable with plan. DVT prophylaxis: Heparin subQ Stress ulcer prophylaxis: Protonix IV Patient will need hospitalization for at least 2 midnights for hypoxic respiratory failure secondary to multifocal pneumonia treatment with IV antibiotics, supplemental oxygen, IV steroids and bronchodilator therapy. Quality Stroke Does the patient have a stroke diagnosis?: No VTE Prior VTE?: No VTE Risk Level:: Medical - moderate - high VTE Device Contraindication: N/A - Device Ordered VTE Drug Contraindication: N/A - Med Ordered
--- NOTE | 2024-10-20 22:48 | MHC.EDTECH ---
2200 rounding done ,vitals taken ,Patient very sweaty ,care given ,gown and linen change ,Patient was reposition and boosted up in bed ,warm blanket given ,Patient resting quietly ,All safety measure in Place .Call hill within Pt reach .
[2024-10-21] VITALS (15 sets, daily range): BP systolic 100–126; BP diastolic 59–71; PULSE 62–93; RESP 16–22; TEMP 36.4–36.7; O2SAT 90–97; BMI 30.4
--- NOTE | 2024-10-21 00:45 | MHC.EDTECH ---
midnight rounding and vitals done ,Patient resting with eyes closed ,mouth care given .
[2024-10-21] MEDS: Piperacillin Sodium/Tazobactam 3.375 GM in 0.9 % Sodium Chloride 50 ML IV ×3 (04:40→22:05)
[2024-10-21] MEDS: 0.9 % Sodium Chloride Flush 3 ML SYRINGE IVFLUSH ×3 (04:41→22:08)
[2024-10-21] MEDS: Levothyroxine Sodium 88 MCG TABLET PO (06:34)
[2024-10-21] MEDS: Pantoprazole Sodium 40 MG/10 ML VIAL IVPUSH (06:35)
[2024-10-21 07:51] LABS: Hematocrit 31.7 % (37.0-47.0); Hemoglobin 10.8 g/dl (12.0-16.0); Mean Corpuscular HGB Conc 34.1 g/dl (31.0-35.0); Mean Corpuscular Hemoglobin 32.4 pg (27.0-33.0); Mean Corpuscular Volume 95.2 fL (80.0-98.0); Mean Platelet Volume 9.9 fL (9.4-12.3); Platelet Count 257 X10*3/uL (160-400); Red Blood Count 3.33 X10*6/uL (4.20-5.50); Red Cell Distribution Width 15.3 % (11.0-16.0); White Blood Count 15.7 X10*3/uL (4.8-10.8)
[2024-10-21] MEDS: vancomycin HCL 750 MG in 0.9 % Sodium Chloride 250 ML 265 MG IV (07:53)
[2024-10-21] MEDS: methylPREDNISolone Sod Succ 40 MG/ML VIAL IVPUSH (07:54)
[2024-10-21 08:13] LABS: Anion Gap 13 (12-20); Blood Urea Nitrogen 14 mg/dL (9-16); Calcium 8.5 mg/dL (8.4-10.2); Carbon Dioxide 22 mmol/L (22-29); Chloride 109 mmol/L (96-108); Estimated Glomerular Filt Rate > 60; Glucose Random 148 mg/dL (60-115); Magnesium 2.1 mg/dL (1.6-2.6); Potassium 3.8 mmol/L (3.3-5.1); Sodium 140 mmol/L (135-145)
[2024-10-21 08:27] LABS: Thyroid Stimulating Hormone 0.34 uIU/mL (0.32-4.0)
[2024-10-21 08:42] LABS: SLIDE REVIEW MANUAL DIFF
[2024-10-21 08:48] LABS: Atypical Lymph Absolute Manual 0.2 x10*3/uL; Atypical Lymphs Percent Manual 1 % (0-6); Band Neutrophils Percent 11 % (3-5); Lymphocytes Absolute Manual 0.2 X10*3/uL (1.2-4.9); Lymphocytes Percent Manual 1 % (20-40); Monocytes Absolute Manual 0.2 X10*3/uL (0.1-1.2); Monocytes Percent Manual 1 % (2-11); Neutrophils Absolute Manual 15.2 X10*3/uL (2.0-8.3); Neutrophils Percent Manual 86 % (45-73)
[2024-10-21 08:51] LABS: Burr Cells 2+ (3-5) /OIF; Dohle Bodies PRESENT; RBC Morphology NOTED
[2024-10-21 08:52] LABS: Platelet Estimate NORMAL (NORMAL); Platelet Morphology Comment NORMAL
--- NOTE | 2024-10-21 09:31 | MHC.CM.PN ---
IMM 10/21/24, Pt lives at [facility] in [place], address was updated in EMR. Her 2 children are her HCP and it is invoked, copy to be faxed from [facility] and added to chart. PCP is Dr. Santiago. Pt uses a WC for all mobility. She is not on suppliemental O2 at baseline, she does get periodic updrafts for her asthma at the [facility]. DCP: return to [facility] ([facility]) via BLS. CM to follow for DC needs.
[2024-10-21] MEDS: Escitalopram Oxalate 5 MG TABLET PO (10:35)
[2024-10-21] MEDS: Donepezil HCl 5 MG TABLET PO (10:35)
[2024-10-21] MEDS: Furosemide 20 MG TABLET PO (10:35)
[2024-10-21] MEDS: Multivitamin TABLET 1 TAB PO (10:35)
[2024-10-21] MEDS: Heparin Sodium,Porcine 5,000 UNIT/ML VIAL 5000 UNIT SUBCUT ×2 (10:35→20:02)
[2024-10-21] MEDS: Cholecalciferol (Vitamin D3) 25 MCG TABLET PO (10:35)
[2024-10-21] MEDS: amLODIPine Besylate 5 MG TABLET PO (10:35)
--- NOTE | 2024-10-21 10:54 | MHC.CM.PN ---
rec'd call from [facility] pallavimelodie, she requested a PT eval prior to pt. returning to SNF. Pt is currently able to stand, pivot to transfer. Shaun would like to her be able to get PT when she returns to keep her able to transfer. She can return to the SNF before [facility] has provided auth. because she lives there.
--- NOTE | 2024-10-21 12:06 | P.PNIM_ITS ---
Subjective Subjective Date of Service: 10/21/24 Interval History: on HFNC but lower fiO2 feels better, cough improved afebrile less short of breath denies chest pain Review of Systems Review of Systems: Yes all other systems are reviewed and are negative Physical Exam 2 Vital Signs: Vital Signs: Last Vital Signs Temp 97.9 F 10/21/24 12:00 Pulse 71 10/21/24 12:00 Resp 22 H 10/21/24 12:00 BP 122/66 10/21/24 12:00 Pulse Ox 97 10/21/24 12:00 O2 Del Method High Flow Nasal C annula 10/21/24 12:00 O2 Flow Rate 40 10/21/24 12:00 FiO2 45 10/21/24 12:00 Oxygen Flow Rate 4 10/20/24 17:35 BMI result Body Mass Index 30.4 Gen: in no acute distress HEENT: sclera anicteric, moist mucus membranes Neck: supple Lungs: inspiratory crackles R upper lung flores, diminished at L base, somewhat tachypneic Heart: regular rate and rhythm, no murmurs Abd: soft, non-tender, non-distended Ext: no edema Skin: warm/well-perfused Neuro: alert and oriented x3, no focal findings Psych: appropriate affect Objective Data Active Medications Acetaminophen (Acetaminophen 325 Mg Tablet) 975 mg PO Q6H PRN PRN Reason: Pain, Mild 1-3,fever,headache Albuterol Sulfate (Albuterol Sulfate (0.083%) 2.5 Mg/3 Ml Vial.Neb) 2.5 mg INHALE Q2H PRN PRN Reason: Shortness of Breath/Wheezing Amlodipine Besylate (Amlodipine Besylate 5 Mg Tablet) 5 mg PO DAILY [facility]; Protocol Last Admin: 10/21/24 10:35 Dose: 5 mg Documented By: JENNIFER Donepezil HCl (Donepezil Hcl 5 Mg Tablet) 5 mg PO DAILY KEKE Last Admin: 10/21/24 10:35 Dose: 5 mg Documented By: JENNIFER Escitalopram Oxalate (Escitalopram Oxalate 5 Mg Tablet) 5 mg PO DAILY KEKE Last Admin: 10/21/24 10:35 Dose: 5 mg Documented By: JENNIFER Furosemide (Furosemide 20 Mg Tablet) 20 mg PO DAILY [facility]; Protocol Last Admin: 10/21/24 10:35 Dose: 20 mg Documented By: JENNIFER Heparin Sodium (Porcine) (Heparin Sodium,Porcine 5,000 Unit/Ml Vial) 5,000 unit SUBCUT Q12H [facility] Last Admin: 10/21/24 10:35 Dose: 5,000 unit Documented By: JENNIFER Piperacillin Sod/Tazobactam (Sod 3.375 gm/ Sodium Chloride) 50 mls @ 100 mls/hr IV Q8H [facility] Last Infusion: 10/21/24 05:44 Dose: Infused Documented By: DONNIE Vancomycin HCl 750 mg/ Sodium (Chloride) 265 mls @ 265 mls/hr IV Q12H [facility] Last Infusion: 10/21/24 11:08 Dose: Infused Documented By: JENNIFER Ipratropium [place] (Ipratropium [place] 1 Puff/17 Mcg Inhaler) 4 puff INHALE RQ4H WHILE AWAKE [facility] Last Admin: 10/21/24 07:39 Dose: Not Given Documented By: TOMMY Non-Admin Reason: Med Not Available Levothyroxine Sodium (Levothyroxine Sodium 88 Mcg Tablet) 88 mcg PO DAILY@0600 [facility] Last Admin: 10/21/24 06:34 Dose: 88 mcg Documented By: KRISTINA Methylprednisolone Sodium Succinate (Methylprednisolone Sod Succ 40 Mg/Ml Vial) 40 mg IVPUSH Q12H [facility] Last Admin: 10/21/24 07:54 Dose: 40 mg Documented By: JENNIFER Montelukast Sodium (Montelukast Sodium 10 Mg Tablet) 10 mg PO BEDTIME [facility] Multivitamins/Vitamin C (Multivitamin Tablet) 1 tab PO DAILY [facility] Last Admin: 10/21/24 10:35 Dose: 1 tab Documented By: JENNIFER Pantoprazole Sodium (Pantoprazole Sodium 40 Mg/10 Ml Vial) 40 mg IVPUSH DAILY@0630 [facility] Last Admin: 10/21/24 06:35 Dose: 40 mg Documented By: KRISTINA Pharmacy Consult (Consult Rx Vancomycin Dosing) 1 each MISCELLANE DAILY PRN PRN Reason: Consult order Sodium Chloride (0.9 % Sodium Chloride Flush 3 Ml Syringe) 3 ml IVFLUSH QSHIFT [facility] Last Admin: 10/21/24 07:49 Dose: 3 ml Documented By: JENNIFER Vitamin D (Cholecalciferol (Vitamin D3) 25 Mcg Tablet) 25 mcg PO DAILY [facility] Last Admin: 10/21/24 10:35 Dose: 25 mcg Documented By: JENNIFER Labs 10/21/24 06:39 10/21/24 06:39 Labs: Laboratory Results - last 24 hr 10/20/24 10/20/24 10/20/24 18:11 18:17 18:36 MCV 93.8 MCH 31.7 MCHC 33.8 RDW 15.2 Plt Count 317 D MPV 10.0 Immature Gran % (Auto) Cancelled Neut % (Auto) Cancelled Lymph % (Auto) Cancelled [place] % (Auto) Cancelled Eos % (Auto) Cancelled Baso % (Auto) Cancelled Lymph # (Auto) Cancelled [place] # (Auto) Cancelled Eos # (Auto) Cancelled Baso # (Auto) Cancelled Abs Immat Gran (auto) Cancelled Absolute Neuts (auto) Cancelled Absolute Nucleated RBC 0.000 Nucleated RBC % (auto) 0.0 Neutrophils % (Manual) 86 H Band Neutrophils % 10 H Lymphocytes % (Manual) 3 L Atypical Lymphs % (Man) Monocytes % (Manual) 1 L Abs Neuts (Manual) 16.8 H Lymphocytes # (Manual) 0.5 L Atyp Lymphs # (Manual) Monocytes # (Manual) 0.2 Hypersegmented Neuts PRESENT Toxic Vacuolation PRESENT Dohle Bodies Platelet Estimate NORMAL Plt Morphology Comment NORMAL RBC Morphology NOTED Hypochromasia 1+ (5-14) Microcytosis 1+ (5-14) Libia Cells 1+ (0-2) Smear Tech's Comments VBG pH 7.43 VBG pCO2 37 VBG pO2 48 VBG HCO3 25 VBG O2 Saturation 70.0 VBG Base Excess 1.1 Anion Gap 16 Estim Creat Clear Calc 67.4 Estimated GFR > 60 Random Glucose 190 H Lactic Acid 2.7 H* Lactic Acid F/U @ 2Hr Calcium 9.3 Magnesium Total Bilirubin 0.7 AST 46 H ALT 30 Alkaline Phosphatase 110 Troponin I High Sens 13.2 B-Natriuretic Peptide 116 H Total Protein 6.9 Albumin 3.4 L Lipase 8 TSH Influenza Type A (PCR) NEGATIVE Influenza Type B (PCR) NEGATIVE RSV RNA Qual (PCR) NEGATIVE SARS-CoV-2 RNA (RT-PCR) NEGATIVE 10/20/24 10/21/24 20:41 06:39 MCV 95.2 MCH 32.4 MCHC 34.1 RDW 15.3 Plt Count 257 MPV 9.9 Immature Gran % (Auto) Cancelled Neut % (Auto) Cancelled Lymph % (Auto) Cancelled [place] % (Auto) Cancelled Eos % (Auto) Cancelled Baso % (Auto) Cancelled Lymph # (Auto) Cancelled [place] # (Auto) Cancelled Eos # (Auto) Cancelled Baso # (Auto) Cancelled Abs Immat Gran (auto) Cancelled Absolute Neuts (auto) Cancelled Absolute Nucleated RBC 0.000 Nucleated RBC % (auto) 0.0 Neutrophils % (Manual) 86 H Band Neutrophils % 11 H Lymphocytes % (Manual) 1 L Atypical Lymphs % (Man) 1 Monocytes % (Manual) 1 L Abs Neuts (Manual) 15.2 H Lymphocytes # (Manual) 0.2 L Atyp Lymphs # (Manual) 0.2 Monocytes # (Manual) 0.2 Hypersegmented Neuts Toxic Vacuolation Dohle Bodies PRESENT Platelet Estimate NORMAL Plt Morphology Comment NORMAL RBC Morphology NOTED Hypochromasia Microcytosis [place] Cells 2+ (3-5) Smear Tech's Comments MANUAL DIFF VBG pH VBG pCO2 VBG pO2 VBG HCO3 VBG O2 Saturation VBG Base Excess Anion Gap 13 Estim Creat Clear Calc 87.0 Estimated GFR > 60 Random Glucose 148 H Lactic Acid Lactic Acid F/U @ 2Hr 1.7 Calcium 8.5 D Magnesium 2.1 Total Bilirubin AST ALT Alkaline Phosphatase Troponin I High Sens B-Natriuretic Peptide Total Protein Albumin Lipase TSH 0.34 Influenza Type A (PCR) Influenza Type B (PCR) RSV RNA Qual (PCR) SARS-CoV-2 RNA (RT-PCR) Assessment and Plan (1) Acute hypoxic respiratory failure: Status: Acute (2) Multifocal pneumonia: Status: Acute Plan d2 for 79yo F LTC SNF resident with dementia, HLD, hypothyrodism, HTN, asthma, and PUD sent in with hypoxia, dyspnea, and recently diagnosed pneumonia admitted for sepsis and acute hypoxic respiratory failure due to PNA PNA - 10/20- vancomycin + piperacillin-tazobactam, follow BCx, trend PCT, send MRSA swab + urinary antigens for Legionella and pneumococcus + respiratory virus panel acute hypoxic respiratory failure - supplemental O2, wean as tolerated; currently on HFNC 40% fiO2, 45 Lpm acute asthma exacerbation - continue methylprednisolone 40mg q24h 10/21-10/25, nebs, montelukast depresion - continue escitlorapm dementia - continue donepezil GERD - PPI hypothyroidism - continue LT4 HTN - amlodipine, furosemide VTE ppx - enoxaparin dispo - eventual return to LTC In my clinical judgment, the patient requires continued inpatient hospitalization for the following reasons: hypoxia, IV ABX Total time managing care of this patient today: 45 minutes. Quality Stroke Does the patient have a stroke diagnosis?: No VTE Prior VTE?: No VTE Risk Level:: Medical - moderate - high VTE Device Contraindication: N/A - Device Ordered VTE Drug Contraindication: N/A - Med Ordered
[2024-10-21 12:09] LABS: Appearance Urine Turbid; Color Urine Dark Yellow; Glucose Urine UA Negative (Negative); Leukocyte Esterase Urine Negative (Negative); Nitrite Urine Negative (Negative); Specific Gravity - Urine >= 1.030 (1.005-1.025); UMIC TRIGGER UA YES; Urine Blood Negative (Negative); Urine Ketones Trace mg/dL (Negative); Urine Protein 100 (2+) mg/dL (Neg-Trace)
[2024-10-21] MEDS: Ipratropium Bromide 1 PUFF/17 MCG INHALER 4 PUFF INHALE ×3 (12:14→20:53)
[2024-10-21 12:25] LABS: WBC Urine 0-5 /HPF (0-5)
[2024-10-21 12:26] LABS: Bacteria Urine 3+ (None Seen); Hyaline Casts Urine 0-2 /LPF (0-2)
[2024-10-21 12:27] LABS: Procalcitonin 0.59 ng/mL
[2024-10-21 14:13] LABS: MRSA Nasal PCR POSITIVE (Negative); SA Nasal PCR POSITIVE (Negative)
[2024-10-21 16:13] LABS: Adenovirus PCR Not Detected (Not Detect.); Bordetella parapertussis PCR Not Detected (Not Detect.); Bordetella pertussis PCR Not Detected (Not Detect.); Chlamydia pneumoniae PCR Not Detected (Not Detect.); Coronavirus 229E PCR Not Detected (Not Detect.); Coronavirus HKU1 PCR Not Detected (Not Detect.); Coronavirus NL63 PCR Not Detected (Not Detect.); Coronavirus OC43 PCR Not Detected (Not Detect.); Human metapneumovirus PCR Not Detected (Not Detect.); Influenza A PCR Not Detected (Not Detect.); Influenza B PCR Not Detected (Not Detect.); Mycoplasma pneumoniae PCR Not Detected (Not Detect.); Parainfluenza 1 PCR Not Detected (Not Detect.); Parainfluenza 2 PCR Not Detected (Not Detect.); Parainfluenza 3 PCR Not Detected (Not Detect.); Parainfluenza 4 PCR Not Detected (Not Detect.); RSV PCR Not Detected (Not Detect.); Rhino/Enterovirus PCR Not Detected (Not Detect.)
[2024-10-21 16:18] LABS: Influenza A H1 PCR Not Detected (Not Detect.); Influenza A H1-2009 PCR Not Detected (Not Detect.); Influenza A H3 PCR Not Detected (Not Detect.); SARS-CoV-2 PCR Not Detected (Not Detect.)
[2024-10-21 17:43] LABS: Vancomycin Random 11.4 mcg/mL (15-20)
[2024-10-21] MEDS: vancomycin HCL 1,000 MG in 0.9 % Sodium Chloride 250 ML 270 MG IV (20:02)
[2024-10-21] MEDS: Montelukast Sodium 10 MG TABLET PO (20:03)
[2024-10-22] VITALS (13 sets, daily range): BP systolic 117–131; BP diastolic 56–64; PULSE 73–88; RESP 17–20; TEMP 36.2–37.2; O2SAT 91–95
[2024-10-22] MEDS: Piperacillin Sodium/Tazobactam 3.375 GM in 0.9 % Sodium Chloride 50 ML IV (03:52)
--- NOTE | 2024-10-22 04:11 | PC.NURSE ---
Addendum entered by Luda Porter RN 10/22/24 04:27: Pt receiving PRN albuterol treatment from RT at this time. HiFlow adjusted to 50L 50%. Original Note: Respiratory called to bedside for consistent o2 sat 87-89%. HiFow adjusted by RT to 40L 50%, pt sating 91-92%.
[2024-10-22] MEDS: Albuterol Sulfate (0.083%) 2.5 MG/3 ML VIAL.NEB INHALE (04:24)
[2024-10-22] MEDS: vancomycin HCL 1,000 MG in 0.9 % Sodium Chloride 250 ML 270 MG IV (06:22)
[2024-10-22] MEDS: Levothyroxine Sodium 88 MCG TABLET PO (06:22)
[2024-10-22] MEDS: Pantoprazole Sodium 40 MG/10 ML VIAL IVPUSH (06:22)
[2024-10-22 07:51] LABS: Hematocrit 31.8 % (37.0-47.0); Hemoglobin 10.7 g/dl (12.0-16.0); Mean Corpuscular HGB Conc 33.6 g/dl (31.0-35.0); Mean Corpuscular Hemoglobin 32.6 pg (27.0-33.0); Mean Platelet Volume 10.2 fL (9.4-12.3); Platelet Count 343 X10*3/uL (160-400); Red Blood Count 3.28 X10*6/uL (4.20-5.50); Red Cell Distribution Width 15.7 % (11.0-16.0); White Blood Count 19.7 X10*3/uL (4.8-10.8)
[2024-10-22] MEDS: Multivitamin TABLET 1 TAB PO (08:01)
[2024-10-22] MEDS: Cholecalciferol (Vitamin D3) 25 MCG TABLET PO (08:01)
[2024-10-22] MEDS: Furosemide 20 MG TABLET PO (08:01)
[2024-10-22] MEDS: Escitalopram Oxalate 5 MG TABLET PO (08:01)
[2024-10-22] MEDS: Donepezil HCl 5 MG TABLET PO (08:01)
[2024-10-22] MEDS: Heparin Sodium,Porcine 5,000 UNIT/ML VIAL 5000 UNIT SUBCUT ×2 (08:01→20:16)
[2024-10-22] MEDS: amLODIPine Besylate 5 MG TABLET PO (08:01)
[2024-10-22] MEDS: 0.9 % Sodium Chloride Flush 3 ML SYRINGE IVFLUSH ×3 (08:02→20:16)
[2024-10-22] MEDS: methylPREDNISolone Sod Succ 40 MG/ML VIAL IVPUSH ×2 (08:02→15:43)
[2024-10-22 08:09] LABS: Anion Gap 13 (12-20); Blood Urea Nitrogen 20 mg/dL (9-16); Calcium 8.4 mg/dL (8.4-10.2); Carbon Dioxide 25 mmol/L (22-29); Chloride 109 mmol/L (96-108); Creatinine Clr Calc Pharmacy 80.8; Estimated Glomerular Filt Rate > 60; Glucose Random 127 mg/dL (60-115); Potassium 3.5 mmol/L (3.3-5.1); Sodium 143 mmol/L (135-145)
[2024-10-22] MEDS: Ipratropium Bromide 1 PUFF/17 MCG INHALER 4 PUFF INHALE ×2 (08:27→11:29)
--- NOTE | 2024-10-22 12:00 | P.PNIM_ITS ---
Subjective Subjective Date of Service: 10/22/24 Interval History: coughing up thin white sputum still on HFNC 50% fiO2 50 Lpm feels short of breath + wheezy Review of Systems Review of Systems: Yes all other systems are reviewed and are negative Physical Exam 2 Vital Signs: Vital Signs: Last Vital Signs Temp 97.6 F 10/22/24 11:16 Pulse 80 10/22/24 11:32 Resp 20 10/22/24 11:32 BP 119/59 L 10/22/24 11:16 Pulse Ox 93 10/22/24 11:16 O2 Del Method High Flow Nasal C annula 10/22/24 11:16 O2 Flow Rate 50 10/22/24 11:16 FiO2 50 10/22/24 11:16 Oxygen Flow Rate 4 10/20/24 17:35 BMI result Body Mass Index 30.4 Gen: in no acute distress HEENT: sclera anicteric, moist mucus membranes Neck: supple Lungs: inspiratory crackles R upper lung flores, diminished at L base, somewhat tachypneic and with scattered expiratory wheezing Heart: regular rate and rhythm, no murmurs Abd: soft, non-tender, non-distended Ext: no edema Skin: warm/well-perfused Neuro: alert and oriented x3, no focal findings Psych: appropriate affect Objective Data Active Medications Acetaminophen (Acetaminophen 325 Mg Tablet) 975 mg PO Q6H PRN PRN Reason: Pain, Mild 1-3,fever,headache Albuterol Sulfate (Albuterol Sulfate (0.083%) 2.5 Mg/3 Ml Vial.Neb) 2.5 mg INHALE Q2H PRN PRN Reason: Shortness of Breath/Wheezing Last Admin: 10/22/24 04:24 Dose: 2.5 mg Documented By: JEFF Amlodipine Besylate (Amlodipine Besylate 5 Mg Tablet) 5 mg PO DAILY [facility]; Protocol Last Admin: 10/22/24 08:01 Dose: 5 mg Documented By: JENNIFER Donepezil HCl (Donepezil Hcl 5 Mg Tablet) 5 mg PO DAILY [facility] Last Admin: 10/22/24 08:01 Dose: 5 mg Documented By: JENNIFER Escitalopram Oxalate (Escitalopram Oxalate 5 Mg Tablet) 5 mg PO DAILY [facility] Last Admin: 10/22/24 08:01 Dose: 5 mg Documented By: JENNIFER Furosemide (Furosemide 20 Mg Tablet) 20 mg PO DAILY [facility]; Protocol Last Admin: 10/22/24 08:01 Dose: 20 mg Documented By: JENNIFER Heparin Sodium (Porcine) (Heparin Sodium,Porcine 5,000 Unit/Ml Vial) 5,000 unit SUBCUT Q12H [facility] Last Admin: 10/22/24 08:01 Dose: 5,000 unit Documented By: JENNIFER Vancomycin HCl 1,000 mg/ (Sodium Chloride) 270 mls @ 270 mls/hr IV Q12H [facility] Last Infusion: 10/22/24 08:05 Dose: Infused Documented By: JENNIFER Piperacillin Sod/Tazobactam (Sod 4.5 gm/ Sodium Chloride) 100 mls @ 200 mls/hr IV Q6H [facility] Ipratropium Donnelly (Ipratropium Donnelly 1 Puff/17 Mcg Inhaler) 4 puff INHALE RQ4H WHILE AWAKE [facility] Last Admin: 10/22/24 11:29 Dose: 4 puff Documented By: RANDOLPH Levothyroxine Sodium (Levothyroxine Sodium 88 Mcg Tablet) 88 mcg PO DAILY@0600 [facility] Last Admin: 10/22/24 06:22 Dose: 88 mcg Documented By: DONNIE Methylprednisolone Sodium Succinate (Methylprednisolone Sod Succ 40 Mg/Ml Vial) 40 mg IVPUSH Q24H [facility] Last Admin: 10/22/24 08:02 Dose: 40 mg Documented By: JENNIFER Montelukast Sodium (Montelukast Sodium 10 Mg Tablet) 10 mg PO BEDTIME [facility] Last Admin: 10/21/24 20:03 Dose: 10 mg Documented By: DONNIE Multivitamins/Vitamin C (Multivitamin Tablet) 1 tab PO DAILY [facility] Last Admin: 10/22/24 08:01 Dose: 1 tab Documented By: JENNIFER Pantoprazole Sodium (Pantoprazole Sodium 40 Mg/10 Ml Vial) 40 mg IVPUSH DAILY@0630 [facility] Last Admin: 10/22/24 06:22 Dose: 40 mg Documented By: DONNIE Pharmacy Consult (Consult Rx Vancomycin Dosing) 1 each MISCELLANE DAILY PRN PRN Reason: Consult order Sodium Chloride (0.9 % Sodium Chloride Flush 3 Ml Syringe) 3 ml IVFLUSH QSHIFT [facility] Last Admin: 10/22/24 08:02 Dose: 3 ml Documented By: JENNIEFR Vitamin D (Cholecalciferol (Vitamin D3) 25 Mcg Tablet) 25 mcg PO DAILY [facility] Last Admin: 10/22/24 08:01 Dose: 25 mcg Documented By: JENNIFER Labs 10/22/24 06:38 10/22/24 06:38 Labs: Laboratory Results - last 24 hr 10/21/24 10/21/24 10/21/24 06:39 11:41 12:15 MCV MCH MCHC RDW Plt Count MPV Absolute Nucleated RBC Nucleated RBC % (auto) Anion Gap Estim Creat Clear Calc Estimated GFR Random Glucose Calcium Procalcitonin 0.59 Urine Color Dark Yellow Urine Appearance Turbid Urine pH 6.0 Ur Specific [place] >= 1.030 H Urine Protein 100 (2+) H Urine Glucose (UA) Negative Urine Ketones Trace Urine Blood Negative Urine Nitrite Negative Ur Leukocyte Esterase Negative Urine RBC 6-10 H Urine WBC 0-5 Ur Squamous Epith Cells 3-5 Urine Bacteria 3+ Hyaline Casts 0-2 Nasal Screen MRSA (PCR) POSITIVE A Nasal S. aureus Screen POSITIVE A Nasal MRSA/S.aureus Interp SEE NOTE Random Vancomycin Respiratory Panel [place] Adenovirus (Rapid PCR) B.pert (TEM-PCR) B.parapertussis DNA PCR C. pneumoniae DNA (PCR) Coronavirus OC43 (PCR) Coronavirus HKU1 (PCR) Coronavirus 229E (PCR) Coronavirus NL63 (PCR) Human Metapneumovir PCR Influenza A (RT-PCR) Influenza A (H1) PCR Influ A (H1/09) PCR Influenza A (H3) PCR Influenza B (RT-PCR) M. pneumoniae (PCR) Parainfluenza 1 (PCR) Parainfluenza 2 (PCR) Parainfluenza 3 (PCR) Parainfluenza 4 (PCR) RSV (PCR) Entero/Rhino (PCR) SARS-CoV-2 RNA (RT-PCR) 10/21/24 10/21/24 10/22/24 13:27 16:35 06:38 MCV 97.0 MCH 32.6 MCHC 33.6 RDW 15.7 Plt Count 343 D MPV 10.2 Absolute Nucleated RBC 0.000 Nucleated RBC % (auto) 0.0 Anion Gap 13 Estim Creat Clear Calc 80.8 Estimated GFR > 60 Random Glucose 127 H Calcium 8.4 Procalcitonin Urine Color Urine Appearance Urine pH Ur Specific [place] Urine Protein Urine Glucose (UA) Urine Ketones Urine Blood Urine Nitrite Ur Leukocyte Esterase Urine RBC Urine WBC Ur Squamous Epith Cells Urine Bacteria Hyaline Casts Nasal Screen MRSA (PCR) Nasal S. aureus Screen Nasal MRSA/S.aureus Interp Random Vancomycin 11.4 L Respiratory Panel [place] See Note Adenovirus (Rapid PCR) Not Detected B.pert (TEM-PCR) Not Detected B.parapertussis DNA PCR Not Detected C. pneumoniae DNA (PCR) Not Detected Coronavirus OC43 (PCR) Not Detected Coronavirus HKU1 (PCR) Not Detected Coronavirus 229E (PCR) Not Detected Coronavirus NL63 (PCR) Not Detected Human Metapneumovir PCR Not Detected Influenza A (RT-PCR) Not Detected Influenza A (H1) PCR Not Detected Influ A (H1/09) PCR Not Detected Influenza A (H3) PCR Not Detected Influenza B (RT-PCR) Not Detected M. pneumoniae (PCR) Not Detected Parainfluenza 1 (PCR) Not Detected Parainfluenza 2 (PCR) Not Detected Parainfluenza 3 (PCR) Not Detected Parainfluenza 4 (PCR) Not Detected RSV (PCR) Not Detected Entero/Rhino (PCR) Not Detected SARS-CoV-2 RNA (RT-PCR) Not Detected Microbiology Microbiology Results: Microbiology 10/20/24 18:11 Blood Culture - Preliminary Blood - Venous No growth after 24 hours. 10/20/24 18:11 Blood Culture - Preliminary Blood - Venous No growth after 24 hours. Assessment and Plan (1) Acute hypoxic respiratory failure: Status: Acute (2) Multifocal pneumonia: Status: Acute Plan d3 for 79yo F LT SNF resident with dementia, HLD, hypothyrodism, HTN, asthma, and PUD sent in with hypoxia, dyspnea, and recently diagnosed pneumonia admitted for sepsis and acute hypoxic respiratory failure due to PNA PNA - 10/20- vancomycin + piperacillin-tazobactam, follow BCx, trend PCT, MRSA swab positive, RPP negative, urinary antigens for Legionella and pneumococcus pending - continue MRSA coverage as above acute hypoxic respiratory failure - supplemental O2, wean as tolerated; currently on HFNC 50% fiO2, 50 Lpm acute asthma exacerbation - increase methylprednisolone to 40 mg q8h, continue nebs + montelukast depression - continue escitalopram dementia - continue donepezil GERD - PPI hypothyroidism - continue LT4 HTN - amlodipine, furosemide VTE ppx - enoxaparin dispo - eventual return to LTC In my clinical judgment, the patient requires continued inpatient hospitalization for the following reasons: hypoxia, IV ABX Total time managing care of this patient today: 45 minutes. Quality Stroke Does the patient have a stroke diagnosis?: No VTE Prior VTE?: No VTE Risk Level:: Medical - moderate - high VTE Device Contraindication: N/A - Device Ordered VTE Drug Contraindication: N/A - Med Ordered
[2024-10-22] MEDS: Piperacillin Sodium/Tazobactam 4.5 GM in 0.9 % Sodium Chloride 100 ML IV ×2 (12:16→17:22)
[2024-10-22] MEDS: Albuterol/Iprat 2.5/0.5MG 3 ML AMPUL.NEB INHALE ×2 (16:15→19:51)
[2024-10-22 17:17] LABS: Vancomycin Random 12.2 mcg/mL (15-20)
[2024-10-22] MEDS: Acetaminophen 325 MG TABLET 975 MG PO (17:24)
[2024-10-22 20:05] LABS: CDiff Gene PCR NEGATIVE (Negative)
[2024-10-22] MEDS: vancomycin HCL 1,250 MG in 0.9 % Sodium Chloride 250 ML 166.67 MG IV (20:15)
[2024-10-22] MEDS: Montelukast Sodium 10 MG TABLET PO (20:16)
[2024-10-23] VITALS (14 sets, daily range): BP systolic 129–165; BP diastolic 63–81; PULSE 61–81; RESP 16–28; TEMP 36.2–36.9; O2SAT 92–98
[2024-10-23] MEDS: Piperacillin Sodium/Tazobactam 4.5 GM in 0.9 % Sodium Chloride 100 ML IV ×4 (00:20→16:38)
[2024-10-23] MEDS: methylPREDNISolone Sod Succ 40 MG/ML VIAL IVPUSH ×3 (00:20→16:38)
[2024-10-23] MEDS: Pantoprazole Sodium 40 MG/10 ML VIAL IVPUSH (06:16)
[2024-10-23] MEDS: Levothyroxine Sodium 88 MCG TABLET PO (06:16)
[2024-10-23] MEDS: vancomycin HCL 1,250 MG in 0.9 % Sodium Chloride 250 ML 166.67 MG IV ×2 (07:16→18:16)
[2024-10-23] MEDS: 0.9 % Sodium Chloride Flush 3 ML SYRINGE IVFLUSH ×2 (07:34→16:38)
[2024-10-23] MEDS: Multivitamin TABLET 1 TAB PO (07:35)
[2024-10-23] MEDS: Escitalopram Oxalate 5 MG TABLET PO (07:35)
[2024-10-23] MEDS: Donepezil HCl 5 MG TABLET PO (07:35)
[2024-10-23] MEDS: Furosemide 20 MG TABLET PO (07:36)
[2024-10-23] MEDS: amLODIPine Besylate 5 MG TABLET PO (07:36)
[2024-10-23] MEDS: Cholecalciferol (Vitamin D3) 25 MCG TABLET PO (07:36)
[2024-10-23] MEDS: Heparin Sodium,Porcine 5,000 UNIT/ML VIAL 5000 UNIT SUBCUT ×2 (07:36→20:29)
[2024-10-23] MEDS: Albuterol/Iprat 2.5/0.5MG 3 ML AMPUL.NEB INHALE ×4 (07:37→19:46)
--- NOTE | 2024-10-23 08:23 | HO.PM.IMPN ---
Subjective Subjective Date of Service: 10/23/24 Interval History: Anxious, wheezing, occasional cough Denies sob, cp. Continues on hi flow Review of Systems Review of Systems: Yes all other systems are reviewed and are negative Physical Exam Vital Signs: Vital Signs: Last Vital Signs Temp 98.2 F 10/23/24 07:23 Pulse 69 10/23/24 07:37 Resp 18 10/23/24 07:37 BP 144/80 H 10/23/24 07:23 Pulse Ox 92 10/23/24 07:23 O2 Del Method High Flow Nasal C annula 10/23/24 07:23 O2 Flow Rate 50 10/23/24 07:23 FiO2 50 10/23/24 07:23 Oxygen Flow Rate 4 10/20/24 17:35 BMI result Body Mass Index 30.4 Constitutional - Awake and Alert, No apparent distress Eyes - PERRLA, EOMI Cardiovascular - S1S2, RRR, No edema Respiratory - Normal lung expansion, Normal respiratory effort, mild respiratory distress, diffuse expiratory wheezing Extremities - no calf tenderness bilaterally, no swelling Skin - Warm/Dry Neurological - Alert & oriented x3, CN II-XII in tact, 5/5 strength BUE and BLE Psychological - anxious appearing Objective Data Active Medications Acetaminophen (Acetaminophen 325 Mg Tablet) 975 mg PO Q6H PRN PRN Reason: Pain, Mild 1-3,fever,headache Last Admin: 10/22/24 17:24 Dose: 975 mg Documented By: SNAA Albuterol Sulfate (Albuterol Sulfate (0.083%) 2.5 Mg/3 Ml Vial.Neb) 2.5 mg INHALE Q2H PRN PRN Reason: Shortness of Breath/Wheezing Last Admin: 10/22/24 04:24 Dose: 2.5 mg Documented By: JEFF Albuterol/Ipratropium (Albuterol/Iprat 2.5/0.5mg 3 Ml Ampul.Neb) 3 ml INHALE RQ4H WHILE AWAKE [facility] Last Admin: 10/23/24 07:37 Dose: 3 ml Documented By: NANI Amlodipine Besylate (Amlodipine Besylate 5 Mg Tablet) 5 mg PO DAILY [facility]; Protocol Last Admin: 10/23/24 07:36 Dose: 5 mg Documented By: TANMAY Donepezil HCl (Donepezil Hcl 5 Mg Tablet) 5 mg PO DAILY [facility] Last Admin: 10/23/24 07:35 Dose: 5 mg Documented By: TANMAY Escitalopram Oxalate (Escitalopram Oxalate 5 Mg Tablet) 5 mg PO DAILY [facility] Last Admin: 10/23/24 07:35 Dose: 5 mg Documented By: TANMAY Furosemide (Furosemide 20 Mg Tablet) 20 mg PO DAILY [facility]; Protocol Last Admin: 10/23/24 07:36 Dose: 20 mg Documented By: TANMAY Heparin Sodium (Porcine) (Heparin Sodium,Porcine 5,000 Unit/Ml Vial) 5,000 unit SUBCUT Q12H [facility] Last Admin: 10/23/24 07:36 Dose: 5,000 unit Documented By: TANMAY Piperacillin Sod/Tazobactam (Sod 4.5 gm/ Sodium Chloride) 100 mls @ 200 mls/hr IV Q6H [facility] Last Infusion: 10/23/24 07:19 Dose: Infused Documented By: DONNIE Vancomycin HCl 1,250 mg/ (Sodium Chloride) 250 mls @ 166.667 mls/hr IV Q12H [facility] Last Admin: 10/23/24 07:16 Dose: 166.67 mls/hr Documented By: DONNIE Levothyroxine Sodium (Levothyroxine Sodium 88 Mcg Tablet) 88 mcg PO DAILY@0600 [facility] Last Admin: 10/23/24 06:16 Dose: 88 mcg Documented By: DONNIE Methylprednisolone Sodium Succinate (Methylprednisolone Sod Succ 40 Mg/Ml Vial) 40 mg IVPUSH Q8H [facility] Last Admin: 10/23/24 07:36 Dose: 40 mg Documented By: TANMAY Montelukast Sodium (Montelukast Sodium 10 Mg Tablet) 10 mg PO BEDTIME [facility] Last Admin: 10/22/24 20:16 Dose: 10 mg Documented By: DONNIE Multivitamins/Vitamin C (Multivitamin Tablet) 1 tab PO DAILY [facility] Last Admin: 10/23/24 07:35 Dose: 1 tab Documented By: TANMAY Pantoprazole Sodium (Pantoprazole Sodium 40 Mg/10 Ml Vial) 40 mg IVPUSH DAILY@0630 [facility] Last Admin: 10/23/24 06:16 Dose: 40 mg Documented By: DONNIE Pharmacy Consult (Consult Rx Vancomycin Dosing) 1 each MISCELLANE DAILY PRN PRN Reason: Consult order Sodium Chloride (0.9 % Sodium Chloride Flush 3 Ml Syringe) 3 ml IVFLUSH QSHIFT [facility] Last Admin: 10/23/24 07:34 Dose: 3 ml Documented By: TANMAY Vitamin D (Cholecalciferol (Vitamin D3) 25 Mcg Tablet) 25 mcg PO DAILY [facility] Last Admin: 10/23/24 07:36 Dose: 25 mcg Documented By: TANMAY Labs 10/23/24 09:08 10/23/24 09:06 Labs: Laboratory Results - last 24 hr 10/22/24 10/22/24 16:52 17:28 Random Vancomycin 12.2 L C. difficile Tox B Gene NEGATIVE Microbiology Microbiology Results: Microbiology 10/20/24 18:11 Blood Culture - Preliminary Blood - Venous No growth after 48 hours. 10/20/24 18:11 Blood Culture - Preliminary Blood - Venous No growth after 48 hours. Assessment and Plan (1) Acute hypoxic respiratory failure: Status: Acute (2) Multifocal pneumonia: Status: Acute Plan d3 for 79yo F LTC SNF resident with dementia, HLD, hypothyrodism, HTN, asthma, and PUD sent in with hypoxia, dyspnea, and recently diagnosed pneumonia admitted for sepsis and acute hypoxic respiratory failure due to PNA PNA - 10/20- vancomycin + piperacillin-tazobactam, follow BCx, trend PCT, MRSA swab positive, RPP negative, urinary antigens for Legionella and pneumococcus pending - continue MRSA coverage as above acute hypoxic respiratory failure due to above - supplemental O2, wean as tolerated; currently on HFNC 50% fiO2, 50 Lpm acute asthma exacerbation - increase methylprednisolone to 40 mg q8h, continue nebs + montelukast depression - continue escitalopram -add low dose ativan for anxiety dementia - continue donepezil GERD - PPI hypothyroidism - continue LT4 HTN - amlodipine, furosemide VTE ppx - enoxaparin dispo - eventual return to LTC In my clinical judgment, the patient requires continued inpatient hospitalization for the following reasons: hypoxia, IV ABX Total time managing care of this patient today: 45 minutes. Quality Stroke Does the patient have a stroke diagnosis?: No VTE Prior VTE?: No VTE Risk Level:: Medical - moderate - high VTE Device Contraindication: N/A - Device Ordered VTE Drug Contraindication: N/A - Med Ordered
[2024-10-23 09:14] LABS: MANUAL DIFF FLAG NO
[2024-10-23 09:17] LABS: Venous Blood Gas Refer to POC result
[2024-10-23 09:17] LABS: VBG Base Excess 5.8 mmol/L; VBG HCO3 29 mmol/L (22-26); VBG pCO2 40 mmHg; VBG pH 7.47 (7.32-7.43); VBG pO2 64 mmHg
[2024-10-23 09:19] LABS: Hematocrit 32.5 % (37.0-47.0); Hemoglobin 11.7 g/dl (12.0-16.0); Mean Corpuscular Hemoglobin 33.8 pg (27.0-33.0); Mean Corpuscular Volume 93.9 fL (80.0-98.0); Mean Platelet Volume 9.6 fL (9.4-12.3); Platelet Count 390 X10*3/uL (160-400); Red Blood Count 3.46 X10*6/uL (4.20-5.50); Red Cell Distribution Width 15.1 % (11.0-16.0); White Blood Count 21.6 X10*3/uL (4.8-10.8)
[2024-10-23 09:20] LABS: Basophils Absolute Auto 0.1 X10*3/uL (0.0-0.2); Basophils Percent Auto 0.5 % (0-2); Hemoglobin 11.6 g/dl (12.0-16.0); Imm Gran Abs Auto 0.95 X10*3/uL (0.00-0.03); Imm Gran Pct Auto 4.4 % (0.0-0.4); Lymphocytes Absolute Auto 0.9 X10*3/uL (1.2-4.9); Lymphocytes Percent Auto 4.1 % (20-40); Mean Corpuscular HGB Conc 35.2 g/dl (31.0-35.0); Mean Corpuscular Hemoglobin 33.5 pg (27.0-33.0); Mean Corpuscular Volume 95.4 fL (80.0-98.0); Mean Platelet Volume 9.6 fL (9.4-12.3); Monocytes Absolute Auto 0.3 X10*3/uL (0.1-1.2); Monocytes Percent Auto 1.3 % (2-11); Neutrophils Absolute Auto 19.2 x10*3/uL (2.0-8.3); Neutrophils Percent Auto 89.7 % (45-73); Platelet Count 380 X10*3/uL (160-400); Red Blood Count 3.46 X10*6/uL (4.20-5.50); Red Cell Distribution Width 15.4 % (11.0-16.0); White Blood Count 21.5 X10*3/uL (4.8-10.8)
[2024-10-23 09:28] LABS: Adenovirus F 40/41 Not Detected (Not Detect.); Astrovirus Not Detected (Not Detect.); Campylobacter Not Detected (Not Detect.); Cryptosporidium Not Detected (Not Detect.); Cyclospora cayetanensis Not Detected (Not Detect.); E. coli EAEC Not Detected (Not Detect.); E. coli EPEC Not Detected (Not Detect.); E. coli ETEC Not Detected (Not Detect.); E. coli STEC Not Detected (Not Detect.); Entamoeba histolytica Not Detected (Not Detect.); Giardia lamblia Not Detected (Not Detect.); Norovirus GI/GII Not Detected (Not Detect.); Plesiomonas shigelloides Not Detected (Not Detect.); Rotavirus A Not Detected (Not Detect.); Salmonella Not Detected (Not Detect.); Sapovirus Not Detected (Not Detect.); Shigella sp./EIEC Not Detected (Not Detect.); Vibrio Not Detected (Not Detect.); Vibrio Cholerae Not Detected (Not Detect.); Yersinia enterocolitica Not Detected (Not Detect.)
[2024-10-23 09:41] LABS: Anion Gap 14 (12-20); Blood Urea Nitrogen 16 mg/dL (9-16); Calcium 8.5 mg/dL (8.4-10.2); Carbon Dioxide 26 mmol/L (22-29); Chloride 106 mmol/L (96-108); Creatinine Clr Calc Pharmacy 88.7; Estimated Glomerular Filt Rate > 60; Glucose Random 149 mg/dL (60-115); Potassium 3.3 mmol/L (3.3-5.1); Sodium 143 mmol/L (135-145)
[2024-10-23 09:43] LABS: B Type Natriuretic Peptide 417 pg/mL (<100)
[2024-10-23 09:59] LABS: Procalcitonin 0.15 ng/mL
[2024-10-23] MEDS: Acetaminophen 325 MG TABLET 975 MG PO ×2 (11:17→18:16)
[2024-10-23] MEDS: LORazepam 0.5 MG TABLET PO (11:19)
[2024-10-23] MEDS: Magnesium Sulfate/H2O 2 GM/50 ML PIGGYBACK IV (11:20)
[2024-10-23 17:17] LABS: Vancomycin Random 15.5 mcg/mL (15-20)
[2024-10-23] MEDS: Montelukast Sodium 10 MG TABLET PO (20:29)
[2024-10-24] VITALS (12 sets, daily range): BP systolic 126–157; BP diastolic 61–96; PULSE 66–95; RESP 18–24; TEMP 36.3–37.4; O2SAT 89–95
[2024-10-24] MEDS: Piperacillin Sodium/Tazobactam 4.5 GM in 0.9 % Sodium Chloride 100 ML IV ×5 (00:06→23:23)
[2024-10-24] MEDS: methylPREDNISolone Sod Succ 40 MG/ML VIAL IVPUSH ×4 (00:07→23:23)
[2024-10-24] MEDS: 0.9 % Sodium Chloride Flush 3 ML SYRINGE IVFLUSH ×3 (00:19→20:53)
[2024-10-24] MEDS: Levothyroxine Sodium 88 MCG TABLET PO (06:06)
[2024-10-24] MEDS: Pantoprazole Sodium 40 MG/10 ML VIAL IVPUSH (06:06)
[2024-10-24 06:51] LABS: VBG Base Excess 9.2 mmol/L; VBG HCO3 32 mmol/L (22-26); VBG pCO2 39 mmHg; VBG pH 7.52 (7.32-7.43); VBG pO2 53 mmHg
[2024-10-24 06:51] LABS: Venous Blood Gas Refer to POC result
[2024-10-24 07:05] LABS: Hematocrit 31.7 % (37.0-47.0); Mean Corpuscular HGB Conc 34.7 g/dl (31.0-35.0); Mean Corpuscular Hemoglobin 33.2 pg (27.0-33.0); Mean Corpuscular Volume 95.8 fL (80.0-98.0); Mean Platelet Volume 9.6 fL (9.4-12.3); Platelet Count 435 X10*3/uL (160-400); Red Blood Count 3.31 X10*6/uL (4.20-5.50); Red Cell Distribution Width 15.1 % (11.0-16.0); White Blood Count 23.7 X10*3/uL (4.8-10.8)
[2024-10-24 07:11] LABS: Anion Gap 13 (12-20); Blood Urea Nitrogen 15 mg/dL (9-16); Calcium 7.9 mg/dL (8.4-10.2); Carbon Dioxide 28 mmol/L (22-29); Chloride 103 mmol/L (96-108); Creatinine Clr Calc Pharmacy 82.3; Estimated Glomerular Filt Rate > 60; Glucose Random 132 mg/dL (60-115); Potassium 3.5 mmol/L (3.3-5.1); Sodium 140 mmol/L (135-145)
[2024-10-24] MEDS: amLODIPine Besylate 5 MG TABLET PO (07:43)
[2024-10-24] MEDS: Cholecalciferol (Vitamin D3) 25 MCG TABLET PO (07:50)
[2024-10-24] MEDS: Escitalopram Oxalate 5 MG TABLET PO (07:51)
[2024-10-24] MEDS: Heparin Sodium,Porcine 5,000 UNIT/ML VIAL 5000 UNIT SUBCUT ×2 (07:51→20:53)
[2024-10-24] MEDS: Furosemide 20 MG TABLET PO (07:51)
[2024-10-24] MEDS: Multivitamin TABLET 1 TAB PO (07:51)
[2024-10-24] MEDS: Donepezil HCl 5 MG TABLET PO (07:51)
[2024-10-24] MEDS: vancomycin HCL 1,250 MG in 0.9 % Sodium Chloride 250 ML 166.67 MG IV ×2 (07:52→19:21)
[2024-10-24] MEDS: Albuterol/Iprat 2.5/0.5MG 3 ML AMPUL.NEB INHALE ×4 (08:06→19:09)
--- NOTE | 2024-10-24 10:41 | P.PNIM_ITS ---
Subjective Subjective Date of Service: 10/24/24 Interval History: Remains on high flow, anxious, Physical Exam 2 Vital Signs: Vital Signs: Last Vital Signs Temp 97.4 F 10/24/24 08:00 Pulse 67 10/24/24 08:09 Resp 20 10/24/24 08:09 BP 126/96 H 10/24/24 08:00 Pulse Ox 93 10/24/24 08:00 O2 Del Method High Flow Nasal C annula 10/24/24 08:00 O2 Flow Rate 50 10/24/24 03:31 FiO2 50 10/24/24 03:31 Oxygen Flow Rate 4 10/20/24 17:35 BMI result Body Mass Index 30.4 Constitutional - Awake and Alert, No apparent distress Eyes - PERRLA, EOMI Cardiovascular - S1S2, RRR, No edema Respiratory - Normal lung expansion, Normal respiratory effort, mild respiratory distress, diffuse expiratory wheezing Extremities - no calf tenderness bilaterally, no swelling Skin - Warm/Dry Neurological - Alert & oriented x3, CN II-XII in tact, 5/5 strength BUE and BLE Psychological - anxious appearing Objective Data Active Medications Acetaminophen (Acetaminophen 325 Mg Tablet) 975 mg PO Q6H PRN PRN Reason: Pain, Mild 1-3,fever,headache Last Admin: 10/23/24 18:16 Dose: 975 mg Documented By: TANMAY Albuterol Sulfate (Albuterol Sulfate (0.083%) 2.5 Mg/3 Ml Vial.Neb) 2.5 mg INHALE Q2H PRN PRN Reason: Shortness of Breath/Wheezing Last Admin: 10/22/24 04:24 Dose: 2.5 mg Documented By: JEFF Albuterol/Ipratropium (Albuterol/Iprat 2.5/0.5mg 3 Ml Ampul.Neb) 3 ml INHALE RQ4H WHILE AWAKE [facility] Last Admin: 10/24/24 08:06 Dose: 3 ml Documented By: MICHELLE Amlodipine Besylate (Amlodipine Besylate 5 Mg Tablet) 5 mg PO DAILY [facility]; Protocol Last Admin: 10/24/24 07:43 Dose: 5 mg Documented By: SANYA Donepezil HCl (Donepezil Hcl 5 Mg Tablet) 5 mg PO DAILY [facility] Last Admin: 10/24/24 07:51 Dose: 5 mg Documented By: SANYA Escitalopram Oxalate (Escitalopram Oxalate 5 Mg Tablet) 5 mg PO DAILY [facility] Last Admin: 10/24/24 07:51 Dose: 5 mg Documented By: SANYA Furosemide (Furosemide 20 Mg Tablet) 20 mg PO DAILY [facility]; Protocol Last Admin: 10/24/24 07:51 Dose: 20 mg Documented By: SANYA Heparin Sodium (Porcine) (Heparin Sodium,Porcine 5,000 Unit/Ml Vial) 5,000 unit SUBCUT Q12H [facility] Last Admin: 10/24/24 07:51 Dose: 5,000 unit Documented By: SANYA Piperacillin Sod/Tazobactam (Sod 4.5 gm/ Sodium Chloride) 100 mls @ 200 mls/hr IV Q6H [facility] Last Infusion: 10/24/24 06:49 Dose: Infused Documented By: JUSTICE Vancomycin HCl 1,250 mg/ (Sodium Chloride) 250 mls @ 166.667 mls/hr IV Q12H [facility] Last Infusion: 10/24/24 09:41 Dose: Infused Documented By: SANYA Levothyroxine Sodium (Levothyroxine Sodium 88 Mcg Tablet) 88 mcg PO DAILY@0600 [facility] Last Admin: 10/24/24 06:06 Dose: 88 mcg Documented By: JUSTICE Loperamide HCl (Loperamide Hcl 2 Mg Capsule) 2 mg PO Q4H PRN PRN Reason: Diarrhea Lorazepam (Lorazepam 0.5 Mg Tablet) 0.5 mg PO Q8H PRN PRN Reason: Anxiety Last Admin: 10/23/24 11:19 Dose: 0.5 mg Documented By: TANMAY Methylprednisolone Sodium Succinate (Methylprednisolone Sod Succ 40 Mg/Ml Vial) 40 mg IVPUSH Q8H [facility] Last Admin: 10/24/24 07:51 Dose: 40 mg Documented By: SANYA Montelukast Sodium (Montelukast Sodium 10 Mg Tablet) 10 mg PO BEDTIME [facility] Last Admin: 10/23/24 20:29 Dose: 10 mg Documented By: LAW Multivitamins/Vitamin C (Multivitamin Tablet) 1 tab PO DAILY [facility] Last Admin: 10/24/24 07:51 Dose: 1 tab Documented By: SANYA Pharmacy Consult (Consult Rx Vancomycin Dosing) 1 each MISCELLANE DAILY PRN PRN Reason: Consult order Sodium Chloride (0.9 % Sodium Chloride Flush 3 Ml Syringe) 3 ml IVFLUSH QSHIFT [facility] Last Admin: 10/24/24 08:07 Dose: 3 ml Documented By: SANYA Vitamin D (Cholecalciferol (Vitamin D3) 25 Mcg Tablet) 25 mcg PO DAILY [facility] Last Admin: 10/24/24 07:50 Dose: 25 mcg Documented By: SANYA Labs 10/24/24 06:39 10/24/24 06:39 Labs: Laboratory Results - last 24 hr 10/22/24 10/23/24 10/24/24 17:29 16:50 06:39 MCV 95.8 MCH 33.2 H MCHC 34.7 RDW 15.1 Plt Count 435 H MPV 9.6 Absolute Nucleated RBC 0.000 Nucleated RBC % (auto) 0.0 Neutrophils % (Manual) 93 H Band Neutrophils % 2 L Lymphocytes % (Manual) 3 L Atypical Lymphs % (Man) 1 Metamyelocytes % 1 Abs Neuts (Manual) 22.5 H Lymphocytes # (Manual) 0.7 L Atyp Lymphs # (Manual) 0.2 Metamyelocytes # 0.2 Toxic Granulation PRESENT Toxic Vacuolation PRESENT Platelet Estimate NORMAL Plt Morphology Comment NORMAL RBC Morphology NOTED [place] Cells 1+ (0-2) VBG pH VBG pCO2 VBG pO2 VBG HCO3 VBG O2 Saturation VBG Base Excess Anion Gap 13 Estim Creat Clear Calc 82.3 Estimated GFR > 60 Random Glucose 132 H Calcium 7.9 L D Stl C. cayetanensis PCR Not Detected Stool Rotavirus A PCR Not Detected Stl Adenov F 40/41 PCR Not Detected Stool Astrovirus (PCR) Not Detected Stool Campylobacter PCR Not Detected Stool Cryptosporidium PCR Not Detected Stl Sh Tox Pr E STEC PCR Not Detected Stool E coli O157 PCR Not applicable Stl Enterotoxigenic E PCR Not Detected Stool EPEC (PCR) Not Detected Stool EAEC (PCR) Not Detected Stl E. histolytica PCR Not Detected Stool Giardia Lamblia PCR Not Detected Stl P. shigelloides PCR Not Detected Stool Salmonella PCR Not Detected Stool Sapovirus (PCR) Not Detected Stl Shigella/EIEC PCR Not Detected St Y.enterocolitica PCR Not Detected Stool Vibrio (PCR) Not Detected Stl Vibrio cholerae PCR Not Detected Stl Norovirus GI/GII PCR Not Detected Random Vancomycin 15.5 10/24/24 06:47 MCV MCH MCHC RDW Plt Count MPV Absolute Nucleated RBC Nucleated RBC % (auto) Neutrophils % (Manual) Band Neutrophils % Lymphocytes % (Manual) Atypical Lymphs % (Man) Metamyelocytes % Abs Neuts (Manual) Lymphocytes # (Manual) Atyp Lymphs # (Manual) Metamyelocytes # Toxic Granulation Toxic Vacuolation Platelet Estimate Plt Morphology Comment RBC Morphology [place] Cells VBG pH 7.52 H VBG pCO2 39 VBG pO2 53 VBG HCO3 32 H VBG O2 Saturation 78.0 VBG Base Excess 9.2 Anion Gap Estim Creat Clear Calc Estimated GFR Random Glucose Calcium Stl C. cayetanensis PCR Stool Rotavirus A PCR Stl Adenov F PCR Stool Astrovirus (PCR) Stool Campylobacter PCR Stool Cryptosporidium PCR Stl Sh Tox Pr E STEC PCR Stool E coli O157 PCR Stl Enterotoxigenic E PCR Stool EPEC (PCR) Stool EAEC (PCR) Stl E. histolytica PCR Stool Giardia Lamblia PCR Stl P. shigelloides PCR Stool Salmonella PCR Stool Sapovirus (PCR) Stl Shigella/EIEC PCR St Y.enterocolitica PCR Stool Vibrio (PCR) Stl Vibrio cholerae PCR Stl Norovirus GI/GII PCR Random Vancomycin Assessment and Plan (1) Acute hypoxic respiratory failure: Status: Acute (2) Multifocal pneumonia: Status: Acute Plan 79yo F LTC SNF resident with dementia, HLD, hypothyrodism, HTN, asthma, and PUD sent in with hypoxia, dyspnea, and recently diagnosed pneumonia admitted for sepsis and acute hypoxic respiratory failure due to PNA PNA - 10/20- vancomycin + piperacillin-tazobactam, follow BCx, trend PCT, MRSA swab positive, RPP negative, urinary antigens for Legionella and pneumococcus pending - continue MRSA coverage as above acute hypoxic respiratory failure due to above - supplemental O2, wean as tolerated; currently on HFNC 50% fiO2, 50 Lpm acute asthma exacerbation - continue solu-medrol 40 mg q8h, continue nebs + montelukast depression - continue escitalopram -add low dose ativan for anxiety dementia - continue donepezil GERD - PPI hypothyroidism - continue LT4 HTN - amlodipine, furosemide Leukocytosis, likely d/t steroid, monitor VTE ppx - enoxaparin dispo - eventual return to LTC In my clinical judgment, the patient requires continued inpatient hospitalization for the following reasons: hypoxia, IV ABX Total time managing care of this patient today: 45 minutes. Quality Stroke Does the patient have a stroke diagnosis?: No VTE Prior VTE?: No VTE Risk Level:: Medical - moderate - high VTE Device Contraindication: N/A - Device Ordered VTE Drug Contraindication: N/A - Med Ordered
--- NOTE | 2024-10-24 11:36 | MHC.CM.PN ---
EMR reviewed and per MD rounds, pt is not medically cleared for discharge due to management of sepsis/pneumonia, on Hi-flow.
--- NOTE | 2024-10-24 12:57 | HO.WOUND ---
Wound Consult: Initial 79yr old?female admitted to [facility] [place] on 10/20/24 - See progress notes and H&P for detailed history.? Wound consult placed for Coccyx.? Patient agreeable to assessment and photo documentation.? Patient is experiencing frequent loose stools - incontinence baseline. Perianal and Buttock Etiology: ?MASD -IAD (Moisture Associated Skin Damage - Incontinence Associated Dermatitis) ?Present on Admission Wound Bed: red pink tissue with several areas of scattered tissue loss - red pink clean Drainage / Odor: None noted Edges: ? mirrored Renetta wound: red pink intact blanchbale tissue No Induration, Fluctuance or Warmth noted Pain: pain reported Goals of Treatment: ? Triad to protect from friction and moisture Bilateral heels assessed for redness - remain intact and blanchable - off loaded with pillows. recommend foam dressing applicaiton. Recommendations: 1. Turn and Reposition every 2 hours and as needed for patient comfort.? Use pillows or wedges to support off loading positions. 2. Off Load all bony prominences with use of pillows and heel boots if needed.? Apply Preventative foams where needed. ? 3. Monitor for incontinence and moisture control, use barrier creams when needed for prevention and treatment. 4. Provide adequate and supplemental nutrition.? 5. Order low air loss mattress. 6. When applicable maintain blood glucose levels per Providers order. Bilateral Heels - Apply skin prep and preventative heel foam dressing. Peel back and assess and change every 5-7 days. Perianal and Perineal - Off Load Pressure with Q2 hr turns and use of pillows - Cleanse with PH balance spray or wipes, pat dry. ?Apply thin layer of Triad to wound bed - only pat and dab no scrub and rub when soiling occurs. Reapply thin layer PRN after each episode of incontinence. Re-consult wound care Nurse for wound deterioration or wound changes.
[2024-10-24 17:33] LABS: Vancomycin Random 16.1 mcg/mL (15-20)
[2024-10-24] MEDS: Montelukast Sodium 10 MG TABLET PO (20:53)
[2024-10-25] VITALS (13 sets, daily range): BP systolic 128–140; BP diastolic 66–76; PULSE 68–86; RESP 15–28; TEMP 36.2–37.1; O2SAT 88–98
[2024-10-25 00:28] LABS: Strep Pneumo Ag urine Not Detected (Not Detected)
[2024-10-25] MEDS: Levothyroxine Sodium 88 MCG TABLET PO (05:47)
[2024-10-25] MEDS: Piperacillin Sodium/Tazobactam 4.5 GM in 0.9 % Sodium Chloride 100 ML IV ×3 (05:47→18:14)
[2024-10-25] MEDS: vancomycin HCL 1,250 MG in 0.9 % Sodium Chloride 250 ML 166.67 MG IV (06:32)
[2024-10-25] MEDS: Albuterol/Iprat 2.5/0.5MG 3 ML AMPUL.NEB INHALE ×4 (08:06→20:19)
[2024-10-25 08:42] LABS: Creatinine Clr Calc Pharmacy 94.3; Estimated Glomerular Filt Rate > 60
[2024-10-25] MEDS: methylPREDNISolone Sod Succ 40 MG/ML VIAL IVPUSH ×2 (09:51→15:33)
[2024-10-25] MEDS: Heparin Sodium,Porcine 5,000 UNIT/ML VIAL 5000 UNIT SUBCUT ×2 (09:51→19:49)
[2024-10-25] MEDS: Furosemide 20 MG TABLET PO (09:52)
[2024-10-25] MEDS: Donepezil HCl 5 MG TABLET PO (09:53)
[2024-10-25] MEDS: Escitalopram Oxalate 5 MG TABLET PO (09:53)
[2024-10-25] MEDS: 0.9 % Sodium Chloride Flush 3 ML SYRINGE IVFLUSH ×2 (09:53→15:35)
[2024-10-25] MEDS: amLODIPine Besylate 5 MG TABLET PO (09:53)
[2024-10-25] MEDS: Cholecalciferol (Vitamin D3) 25 MCG TABLET PO (09:53)
[2024-10-25] MEDS: Multivitamin TABLET 1 TAB PO (09:53)
--- NOTE | 2024-10-25 10:45 | P.PNIM_ITS ---
Subjective Subjective Date of Service: 10/25/24 Interval History: Remains on high flow, less anxious and less O2 requirement Physical Exam 2 Vital Signs: Vital Signs: Last Vital Signs Temp 98.2 F 10/25/24 07:47 Pulse 68 10/25/24 08:08 Resp 17 10/25/24 08:08 BP 135/68 10/25/24 07:47 Pulse Ox 95 10/25/24 07:47 O2 Del Method High Flow Nasal C annula 10/25/24 07:47 O2 Flow Rate 35 10/25/24 07:47 FiO2 51 10/25/24 07:47 Oxygen Flow Rate 4 10/20/24 17:35 BMI result Body Mass Index 30.4 Constitutional - Awake and Alert, No apparent distress Eyes - PERRLA, EOMI Cardiovascular - S1S2, RRR, No edema Respiratory - Normal lung expansion, Normal respiratory effort, mild respiratory distress, diffuse expiratory wheezing Extremities - no calf tenderness bilaterally, no swelling Skin - Warm/Dry Neurological - Alert & oriented x3, CN II-XII in tact, 5/5 strength BUE and BLE Psychological - anxious appearing Objective Data Active Medications Acetaminophen (Acetaminophen 325 Mg Tablet) 975 mg PO Q6H PRN PRN Reason: Pain, Mild 1-3,fever,headache Last Admin: 10/23/24 18:16 Dose: 975 mg Documented By: TANMAY Albuterol Sulfate (Albuterol Sulfate (0.083%) 2.5 Mg/3 Ml Vial.Neb) 2.5 mg INHALE Q2H PRN PRN Reason: Shortness of Breath/Wheezing Last Admin: 10/22/24 04:24 Dose: 2.5 mg Documented By: JEFF Albuterol/Ipratropium (Albuterol/Iprat 2.5/0.5mg 3 Ml Ampul.Neb) 3 ml INHALE RQ4H WHILE AWAKE [facility] Last Admin: 10/25/24 08:06 Dose: 3 ml Documented By: GODFREY Amlodipine Besylate (Amlodipine Besylate 5 Mg Tablet) 5 mg PO DAILY [facility]; Protocol Last Admin: 10/25/24 09:53 Dose: 5 mg Documented By: SANYA Donepezil HCl (Donepezil Hcl 5 Mg Tablet) 5 mg PO DAILY [facility] Last Admin: 10/25/24 09:53 Dose: 5 mg Documented By: SANYA Escitalopram Oxalate (Escitalopram Oxalate 5 Mg Tablet) 5 mg PO DAILY [facility] Last Admin: 10/25/24 09:53 Dose: 5 mg Documented By: SANYA Furosemide (Furosemide 20 Mg Tablet) 20 mg PO DAILY [facility]; Protocol Last Admin: 10/25/24 09:52 Dose: 20 mg Documented By: SANYA Heparin Sodium (Porcine) (Heparin Sodium,Porcine 5,000 Unit/Ml Vial) 5,000 unit SUBCUT Q12H [facility] Last Admin: 10/25/24 09:51 Dose: 5,000 unit Documented By: SANYA Piperacillin Sod/Tazobactam (Sod 4.5 gm/ Sodium Chloride) 100 mls @ 200 mls/hr IV Q6H [facility] Last Infusion: 10/25/24 06:22 Dose: Infused Documented By: JACLYN Vancomycin HCl 1,250 mg/ (Sodium Chloride) 250 mls @ 166.667 mls/hr IV Q12H [facility] Last Infusion: 10/25/24 09:48 Dose: Infused Documented By: SANYA Levothyroxine Sodium (Levothyroxine Sodium 88 Mcg Tablet) 88 mcg PO DAILY@0600 [facility] Last Admin: 10/25/24 05:47 Dose: 88 mcg Documented By: JACLYN Loperamide HCl (Loperamide Hcl 2 Mg Capsule) 2 mg PO Q4H PRN PRN Reason: Diarrhea Lorazepam (Lorazepam 0.5 Mg Tablet) 0.5 mg PO Q8H PRN PRN Reason: Anxiety Last Admin: 10/23/24 11:19 Dose: 0.5 mg Documented By: TANMAY Methylprednisolone Sodium Succinate (Methylprednisolone Sod Succ 40 Mg/Ml Vial) 40 mg IVPUSH Q8H [facility] Last Admin: 10/25/24 09:51 Dose: 40 mg Documented By: SANYA Montelukast Sodium (Montelukast Sodium 10 Mg Tablet) 10 mg PO BEDTIME [facility] Last Admin: 10/24/24 20:53 Dose: 10 mg Documented By: JACLYN Multivitamins/Vitamin C (Multivitamin Tablet) 1 tab PO DAILY [facility] Last Admin: 10/25/24 09:53 Dose: 1 tab Documented By: SANYA Pharmacy Consult (Consult Rx Vancomycin Dosing) 1 each MISCELLANE DAILY PRN PRN Reason: Consult order Sodium Chloride (0.9 % Sodium Chloride Flush 3 Ml Syringe) 3 ml IVFLUSH QSHIFT [facility] Last Admin: 10/25/24 09:53 Dose: 3 ml Documented By: SANYA Vitamin D (Cholecalciferol (Vitamin D3) 25 Mcg Tablet) 25 mcg PO DAILY [facility] Last Admin: 10/25/24 09:53 Dose: 25 mcg Documented By: SANYA Labs 10/24/24 06:39 10/25/24 08:13 Labs: Laboratory Results - last 24 hr 10/21/24 10/24/24 10/25/24 11:41 17:09 08:13 Estim Creat Clear Calc 94.3 Estimated GFR > 60 Random Vancomycin 16.1 Ur Strep pneumoniae Ag Not Detected Assessment and Plan (1) Acute hypoxic respiratory failure: Status: Acute (2) Multifocal pneumonia: Status: Acute Plan 79yo F LTC SNF resident with dementia, HLD, hypothyrodism, HTN, asthma, and PUD sent in with hypoxia, dyspnea, and recently diagnosed pneumonia admitted for sepsis and acute hypoxic respiratory failure due to PNA PNA 10/20- vancomycin + piperacillin-tazobactam, follow BCx, trend PCT, MRSA swab positive, RPP negative, urinary antigens for Legionella and pneumococcus pending continue MRSA coverage as above, change to doxy when better acute hypoxic respiratory failure due to above supplemental O2, wean as tolerated; currently on HFNC 50% fiO2, 50 Lpm, wean off O2 to nasal canula acute asthma exacerbation continue solu-medrol 40 mg q8h, continue nebs + montelukast depression continue escitalopram add low dose ativan for anxiety dementia continue donepezil GERD PPI hypothyroidism continue LT4 HTN amlodipine, furosemide Leukocytosis, likely d/t steroid, monitor VTE ppx enoxaparin dispo eventual return to LTC In my clinical judgment, the patient requires continued inpatient hospitalization for the following reasons: hypoxia, IV ABX Total time managing care of this patient today: 45 minutes. Quality Stroke Does the patient have a stroke diagnosis?: No VTE Prior VTE?: No VTE Risk Level:: Medical - moderate - high VTE Device Contraindication: N/A - Device Ordered VTE Drug Contraindication: N/A - Med Ordered
[2024-10-25 11:04] LABS: Anion Gap 13 (12-20); Blood Urea Nitrogen 13 mg/dL (9-16); Calcium 7.7 mg/dL (8.4-10.2); Carbon Dioxide 29 mmol/L (22-29); Chloride 102 mmol/L (96-108); Glucose Random 115 mg/dL (60-115); Potassium 3.6 mmol/L (3.3-5.1); Sodium 140 mmol/L (135-145)
[2024-10-25 17:16] LABS: Vancomycin Random 17.6 mcg/mL (15-20)
--- NOTE | 2024-10-25 17:25 | HE.PHANOTE ---
RE: VANCO DOSING Trough came back as 17.6 mg/L and renal function is stable. Continue with dose of 1250 mg q12h, next trough is scheduled for 10/26/24 @1700.
[2024-10-25] MEDS: Montelukast Sodium 10 MG TABLET PO (19:51)
[2024-10-25] MEDS: vancomycin HCL 1,250 MG in 0.9 % Sodium Chloride 250 ML 167 MG IV (20:01)
[2024-10-26] VITALS (18 sets, daily range): BP systolic 125–150; BP diastolic 60–80; PULSE 63–105; RESP 16–24; TEMP 36.4–36.8; O2SAT 88–98
[2024-10-26] MEDS: methylPREDNISolone Sod Succ 40 MG/ML VIAL IVPUSH ×4 (00:22→23:33)
[2024-10-26] MEDS: 0.9 % Sodium Chloride Flush 3 ML SYRINGE IVFLUSH ×4 (00:23→19:41)
[2024-10-26] MEDS: Piperacillin Sodium/Tazobactam 4.5 GM in 0.9 % Sodium Chloride 100 ML IV ×5 (00:29→23:33)
[2024-10-26] MEDS: Levothyroxine Sodium 88 MCG TABLET PO (05:29)
[2024-10-26] MEDS: vancomycin HCL 1,250 MG in 0.9 % Sodium Chloride 250 ML 166.67 MG IV ×2 (06:19→18:10)
[2024-10-26 07:21] LABS: Creatinine Clr Calc Pharmacy 94.3; Estimated Glomerular Filt Rate > 60
[2024-10-26] MEDS: Albuterol/Iprat 2.5/0.5MG 3 ML AMPUL.NEB INHALE ×4 (07:44→18:49)
[2024-10-26] MEDS: Multivitamin TABLET 1 TAB PO (08:52)
[2024-10-26] MEDS: Cholecalciferol (Vitamin D3) 25 MCG TABLET PO (08:52)
[2024-10-26] MEDS: Furosemide 20 MG TABLET PO (08:52)
[2024-10-26] MEDS: amLODIPine Besylate 5 MG TABLET PO (08:52)
[2024-10-26] MEDS: Donepezil HCl 5 MG TABLET PO (08:52)
[2024-10-26] MEDS: Heparin Sodium,Porcine 5,000 UNIT/ML VIAL 5000 UNIT SUBCUT ×2 (08:52→19:31)
[2024-10-26] MEDS: Escitalopram Oxalate 5 MG TABLET PO (08:53)
[2024-10-26] MEDS: LORazepam 0.5 MG TABLET PO (08:53)
--- NOTE | 2024-10-26 09:34 | HO.PM.IMPN ---
Subjective Subjective Date of Service: 10/26/24 Interval History: Didn't do good with trial of highflow yesterday and is back on Physical Exam Vital Signs: Vital Signs: Last Vital Signs Temp 97.7 F 10/26/24 08:00 Pulse 80 10/26/24 08:00 Resp 22 H 10/26/24 09:10 BP 147/67 H 10/26/24 08:52 Pulse Ox 90 L 10/26/24 08:00 O2 Del Method High Flow Nasal C annula 10/26/24 08:00 O2 Flow Rate 30 10/26/24 08:00 FiO2 50 10/26/24 08:00 Oxygen Flow Rate 4 10/20/24 17:35 BMI result Body Mass Index 30.4 Constitutional - Awake and Alert, No apparent distress Eyes - PERRLA, EOMI Cardiovascular - S1S2, RRR, No edema Respiratory - Normal lung expansion, Normal respiratory effort, mild respiratory distress, diffuse expiratory wheezing Extremities - no calf tenderness bilaterally, no swelling Skin - Warm/Dry Neurological - Alert & oriented x3, CN II-XII in tact, 5/5 strength BUE and BLE Psychological - anxious appearing Objective Data Active Medications Acetaminophen (Acetaminophen 325 Mg Tablet) 975 mg PO Q6H PRN PRN Reason: Pain, Mild 1-3,fever,headache Last Admin: 10/23/24 18:16 Dose: 975 mg Documented By: TANMAY Albuterol Sulfate (Albuterol Sulfate (0.083%) 2.5 Mg/3 Ml Vial.Neb) 2.5 mg INHALE Q2H PRN PRN Reason: Shortness of Breath/Wheezing Last Admin: 10/22/24 04:24 Dose: 2.5 mg Documented By: JEFF Albuterol/Ipratropium (Albuterol/Iprat 2.5/0.5mg 3 Ml Ampul.Neb) 3 ml INHALE RQ4H WHILE AWAKE [facility] Last Admin: 10/26/24 07:44 Dose: 3 ml Documented By: RANDOLPH Amlodipine Besylate (Amlodipine Besylate 5 Mg Tablet) 5 mg PO DAILY [facility]; Protocol Last Admin: 10/26/24 08:52 Dose: 5 mg Documented By: TANMAY Donepezil HCl (Donepezil Hcl 5 Mg Tablet) 5 mg PO DAILY [facility] Last Admin: 10/26/24 08:52 Dose: 5 mg Documented By: TANMAY Escitalopram Oxalate (Escitalopram Oxalate 5 Mg Tablet) 5 mg PO DAILY [facility] Last Admin: 10/26/24 08:53 Dose: 5 mg Documented By: TANMAY Furosemide (Furosemide 20 Mg Tablet) 20 mg PO DAILY [facility]; Protocol Last Admin: 10/26/24 08:52 Dose: 20 mg Documented By: TANMAY Heparin Sodium (Porcine) (Heparin Sodium,Porcine 5,000 Unit/Ml Vial) 5,000 unit SUBCUT Q12H [facility] Last Admin: 10/26/24 08:52 Dose: 5,000 unit Documented By: TANMAY Piperacillin Sod/Tazobactam (Sod 4.5 gm/ Sodium Chloride) 100 mls @ 200 mls/hr IV Q6H [facility] Last Infusion: 10/26/24 06:13 Dose: Infused Documented By: MORE-HAI Vancomycin HCl 1,250 mg/ (Sodium Chloride) 250 mls @ 166.667 mls/hr IV Q12H [facility] Last Infusion: 10/26/24 08:41 Dose: Infused Documented By: TANMAY Levothyroxine Sodium (Levothyroxine Sodium 88 Mcg Tablet) 88 mcg PO DAILY@0600 [facility] Last Admin: 10/26/24 05:29 Dose: 88 mcg Documented By: MORE-HAI Loperamide HCl (Loperamide Hcl 2 Mg Capsule) 2 mg PO Q4H PRN PRN Reason: Diarrhea Lorazepam (Lorazepam 0.5 Mg Tablet) 0.5 mg PO Q8H PRN PRN Reason: Anxiety Last Admin: 10/26/24 08:53 Dose: 0.5 mg Documented By: TANMAY Methylprednisolone Sodium Succinate (Methylprednisolone Sod Succ 40 Mg/Ml Vial) 40 mg IVPUSH Q8H [facility] Last Admin: 10/26/24 08:52 Dose: 40 mg Documented By: TANMAY Montelukast Sodium (Montelukast Sodium 10 Mg Tablet) 10 mg PO BEDTIME [facility] Last Admin: 10/25/24 19:51 Dose: 10 mg Documented By: MORE-HAI Multivitamins/Vitamin C (Multivitamin Tablet) 1 tab PO DAILY [facility] Last Admin: 10/26/24 08:52 Dose: 1 tab Documented By: TANMAY Pharmacy Consult (Consult Rx Vancomycin Dosing) 1 each MISCELLANE DAILY PRN PRN Reason: Consult order Sodium Chloride (0.9 % Sodium Chloride Flush 3 Ml Syringe) 3 ml IVFLUSH QSHIFT [facility] Last Admin: 10/26/24 08:52 Dose: 3 ml Documented By: TANMAY Vitamin D (Cholecalciferol (Vitamin D3) 25 Mcg Tablet) 25 mcg PO DAILY [facility] Last Admin: 10/26/24 08:52 Dose: 25 mcg Documented By: TANMAY Labs 10/24/24 06:39 10/26/24 06:45 Labs: Laboratory Results - last 24 hr 10/25/24 10/25/24 10/26/24 08:13 16:53 06:45 Hold Purple Top SEE NOTE Anion Gap 13 Estim Creat Clear Calc 94.3 94.3 Estimated GFR > 60 > 60 Random Glucose 115 Calcium 7.7 L Random Vancomycin 17.6 Microbiology Microbiology Results: Microbiology 10/20/24 18:11 Blood Culture - Final Blood - Venous No growth after 5 days. 10/20/24 18:11 Blood Culture - Final Blood - Venous No growth after 5 days. Assessment and Plan (1) Acute hypoxic respiratory failure: Status: Acute (2) Multifocal pneumonia: Status: Acute Plan 79yo F LTC SNF resident with dementia, HLD, hypothyrodism, HTN, asthma, and PUD sent in with hypoxia, dyspnea, and recently diagnosed pneumonia admitted for sepsis and acute hypoxic respiratory failure due to PNA PNA 10/20- vancomycin + piperacillin-tazobactam, follow BCx, trend PCT, MRSA swab positive, RPP negative, urinary antigens for Legionella and pneumococcus pending continue MRSA coverage as above, change to doxy when better acute hypoxic respiratory failure due to above supplemental O2, wean as tolerated; currently on HFNC 50% fiO2, 50 Lpm, wean off O2 to nasal canula if possible acute asthma exacerbation continue solu-medrol 40 mg q8h, continue nebs + montelukast depression continue escitalopram add low dose ativan for anxiety dementia continue donepezil GERD PPI hypothyroidism continue LT4 HTN amlodipine, furosemide Leukocytosis, likely d/t steroid, monitor VTE ppx enoxaparin dispo eventual return to LTC In my clinical judgment, the patient requires continued inpatient hospitalization for the following reasons: hypoxia, IV ABX Total time managing care of this patient today: 45 minutes. Quality Stroke Does the patient have a stroke diagnosis?: No VTE Prior VTE?: No VTE Risk Level:: Medical - moderate - high VTE Device Contraindication: N/A - Device Ordered VTE Drug Contraindication: N/A - Med Ordered
--- NOTE | 2024-10-26 16:31 | MHC.CM.PN ---
Per MD rounds not medically cleared to discharge. DP return to [facility] via BLS.
[2024-10-26 17:48] LABS: Vancomycin Random 15.5 mcg/mL (15-20)
--- NOTE | 2024-10-26 17:59 | HE.PHANOTE ---
Re Vanco Dosing Level 15.5 today and renal function is stable. Continue with dose of 1250 mg q12h. Patient with multiple therapeutic level, next trough is scheduled for 10/28/24 @1700. Roberta TomasD
--- NOTE | 2024-10-26 18:26 | P.CDIM_ITS ---
PROVIDER RESPONSE TEXT: To clarify, the appropriate diagnosis supported by the clinical indicators: Moderate persistent: moderate persistent with exacerbation QUERY TEXT: PHYSICIAN'S DOCUMENTATION REQUEST Date of Query: 10/24/2024 02:04 PM EDT Patient Name: Christen Low Admit Date: 10/20/2024 Dear Josesito Engel MD, A review of the medical record indicates additional documentation may be needed. Please review below and update the documentation accordingly. The diagnosis of asthma was documented in the record on 10/24/24. Additional clinical indicators from the record include: diffuse expiratory wheezing Solu-medrol, nebs, montelukast Based on the above, please clarify in the Progress Notes further specificity regarding the type and a cuity of the asthma: Mild intermittent Please specify if with or without acute exacerbation or status asthmaticus Mild persistent Please specify if with or without acute exacerbation or status asthmaticus Moderate persistent Please specify if with or without acute exacerbation or status asthmaticus Severe persistent Please specify if with or without acute exacerbation or status asthmaticus Exercise induced Please specify if with or without acute exacerbation or status asthmaticus Chronic obstructive asthma and indicate if with acute lower respiratory infection Please specify if with or without acute exacerbation or status asthmaticus Asthma with underlying COPD and indicate if with acute lower respiratory infection Please specify if with or without acute exacerbation or status asthmaticus Other (explain) Clinically unable to determine (explain) Thank you, Lucila Drew RN Use of terms such as suspected, likely, concern for, or probable (associated with a specific diagnosi s that is being evaluated, monitored, or treated as if it exists) are acceptable and can be coded in the inpatient se tting, when documented at the time of discharge. Please use your independent medical judgment in providing your response. THIS QUERY IS PART OF THE PERMANENT MEDICAL RECORD
[2024-10-26] MEDS: Montelukast Sodium 10 MG TABLET PO (19:30)
[2024-10-27] VITALS (15 sets, daily range): BP systolic 133–167; BP diastolic 62–79; PULSE 67–88; RESP 17–24; TEMP 36.3–37.1; O2SAT 82–98
[2024-10-27] MEDS: Piperacillin Sodium/Tazobactam 4.5 GM in 0.9 % Sodium Chloride 100 ML IV ×3 (05:30→17:52)
[2024-10-27] MEDS: Levothyroxine Sodium 88 MCG TABLET PO (05:58)
[2024-10-27] MEDS: vancomycin HCL 1,250 MG in 0.9 % Sodium Chloride 250 ML 166.67 MG IV ×2 (06:01→20:09)
[2024-10-27 07:12] LABS: Creatinine Clr Calc Pharmacy 92.3; Estimated Glomerular Filt Rate > 60
[2024-10-27 07:55] LABS: Anion Gap 14 (12-20); Carbon Dioxide 28 mmol/L (22-29); Chloride 102 mmol/L (96-108); Potassium 3.9 mmol/L (3.3-5.1); Sodium 140 mmol/L (135-145)
[2024-10-27] MEDS: Albuterol/Iprat 2.5/0.5MG 3 ML AMPUL.NEB INHALE ×4 (08:13→18:42)
[2024-10-27] MEDS: Escitalopram Oxalate 5 MG TABLET PO (09:48)
[2024-10-27] MEDS: Cholecalciferol (Vitamin D3) 25 MCG TABLET PO (09:48)
[2024-10-27] MEDS: methylPREDNISolone Sod Succ 40 MG/ML VIAL IVPUSH ×2 (09:48→15:28)
[2024-10-27] MEDS: Donepezil HCl 5 MG TABLET PO (09:48)
[2024-10-27] MEDS: 0.9 % Sodium Chloride Flush 3 ML SYRINGE IVFLUSH ×2 (09:48→15:25)
[2024-10-27] MEDS: Multivitamin TABLET 1 TAB PO (09:48)
[2024-10-27] MEDS: amLODIPine Besylate 5 MG TABLET PO (09:48)
[2024-10-27] MEDS: Heparin Sodium,Porcine 5,000 UNIT/ML VIAL 5000 UNIT SUBCUT ×2 (09:48→20:09)
[2024-10-27] MEDS: Furosemide 20 MG TABLET PO (09:48)
--- NOTE | 2024-10-27 11:16 | HO.PM.IMPN ---
Subjective Subjective Date of Service: 10/27/24 Interval History: Overnight required more oxygen overnight. This morning saying she feels better Physical Exam Vital Signs: Vital Signs: Last Vital Signs Temp 97.4 F 10/27/24 11:06 Pulse 71 10/27/24 11:06 Resp 20 10/27/24 11:06 BP 147/68 H 10/27/24 11:06 Pulse Ox 94 10/27/24 11:06 O2 Del Method High Flow Nasal C annula 10/27/24 11:06 O2 Flow Rate 68 10/27/24 11:06 FiO2 34 10/27/24 11:06 Oxygen Flow Rate 4 10/20/24 17:35 BMI result Body Mass Index 30.4 Constitutional - Awake and Alert, No apparent distress Eyes - PERRLA, EOMI Cardiovascular - S1S2, RRR, No edema Respiratory - Normal lung expansion, Normal respiratory effort, mild respiratory distress, diffuse expiratory wheezing Extremities - no calf tenderness bilaterally, no swelling Skin - Warm/Dry Neurological - Alert & oriented x3, CN II-XII in tact, 5/5 strength BUE and BLE Psychological - anxious appearing Objective Data Active Medications Acetaminophen (Acetaminophen 325 Mg Tablet) 975 mg PO Q6H PRN PRN Reason: Pain, Mild 1-3,fever,headache Last Admin: 10/23/24 18:16 Dose: 975 mg Documented By: TANMAY Albuterol Sulfate (Albuterol Sulfate (0.083%) 2.5 Mg/3 Ml Vial.Neb) 2.5 mg INHALE Q2H PRN PRN Reason: Shortness of Breath/Wheezing Last Admin: 10/22/24 04:24 Dose: 2.5 mg Documented By: JEFF Albuterol/Ipratropium (Albuterol/Iprat 2.5/0.5mg 3 Ml Ampul.Neb) 3 ml INHALE RQ4H WHILE AWAKE [facility] Last Admin: 10/27/24 08:13 Dose: 3 ml Documented By: GODFREY Amlodipine Besylate (Amlodipine Besylate 5 Mg Tablet) 5 mg PO DAILY [facility]; Protocol Last Admin: 10/27/24 09:48 Dose: 5 mg Documented By: KAY Donepezil HCl (Donepezil Hcl 5 Mg Tablet) 5 mg PO DAILY [facility] Last Admin: 10/27/24 09:48 Dose: 5 mg Documented By: KAY Escitalopram Oxalate (Escitalopram Oxalate 5 Mg Tablet) 5 mg PO DAILY [facility] Last Admin: 10/27/24 09:48 Dose: 5 mg Documented By: KAY Furosemide (Furosemide 20 Mg Tablet) 20 mg PO DAILY [facility]; Protocol Last Admin: 10/27/24 09:48 Dose: 20 mg Documented By: KAY Heparin Sodium (Porcine) (Heparin Sodium,Porcine 5,000 Unit/Ml Vial) 5,000 unit SUBCUT Q12H [facility] Last Admin: 10/27/24 09:48 Dose: 5,000 unit Documented By: KAY Piperacillin Sod/Tazobactam (Sod 4.5 gm/ Sodium Chloride) 100 mls @ 200 mls/hr IV Q6H [facility] Last Infusion: 10/27/24 06:06 Dose: Infused Documented By: JACKELINE Vancomycin HCl 1,250 mg/ (Sodium Chloride) 250 mls @ 166.667 mls/hr IV Q12H [facility] Last Infusion: 10/27/24 08:19 Dose: Infused Documented By: KAY Levothyroxine Sodium (Levothyroxine Sodium 88 Mcg Tablet) 88 mcg PO DAILY@0600 [facility] Last Admin: 10/27/24 05:58 Dose: 88 mcg Documented By: JACKELINE Loperamide HCl (Loperamide Hcl 2 Mg Capsule) 2 mg PO Q4H PRN PRN Reason: Diarrhea Lorazepam (Lorazepam 0.5 Mg Tablet) 0.5 mg PO Q8H PRN PRN Reason: Anxiety Last Admin: 10/26/24 08:53 Dose: 0.5 mg Documented By: TANMAY Methylprednisolone Sodium Succinate (Methylprednisolone Sod Succ 40 Mg/Ml Vial) 40 mg IVPUSH Q8H [facility] Last Admin: 10/27/24 09:48 Dose: 40 mg Documented By: KAY Montelukast Sodium (Montelukast Sodium 10 Mg Tablet) 10 mg PO BEDTIME [facility] Last Admin: 10/26/24 19:30 Dose: 10 mg Documented By: JACKELINE Multivitamins/Vitamin C (Multivitamin Tablet) 1 tab PO DAILY [facility] Last Admin: 10/27/24 09:48 Dose: 1 tab Documented By: KAY Pharmacy Consult (Consult Rx Vancomycin Dosing) 1 each MISCELLANE DAILY PRN PRN Reason: Consult order Sodium Chloride (0.9 % Sodium Chloride Flush 3 Ml Syringe) 3 ml IVFLUSH QSHIFT [facility] Last Admin: 10/27/24 09:48 Dose: 3 ml Documented By: KAY Vitamin D (Cholecalciferol (Vitamin D3) 25 Mcg Tablet) 25 mcg PO DAILY [facility] Last Admin: 10/27/24 09:48 Dose: 25 mcg Documented By: KAY Labs 10/24/24 06:39 10/27/24 06:06 Labs: Laboratory Results - last 24 hr 10/26/24 10/27/24 17:22 06:06 Anion Gap 14 Estim Creat Clear Calc 92.3 Estimated GFR > 60 Random Vancomycin 15.5 Assessment and Plan (1) Acute hypoxic respiratory failure: Status: Acute (2) Multifocal pneumonia: Status: Acute Plan 79yo F LTC SNF resident with dementia, HLD, hypothyrodism, HTN, asthma, and PUD sent in with hypoxia, dyspnea, and recently diagnosed pneumonia admitted for sepsis and acute hypoxic respiratory failure due to PNA PNA 10/20- vancomycin + piperacillin-tazobactam, follow BCx, trend PCT, MRSA swab positive, RPP negative, urinary antigens for Legionella and pneumococcus pending continue MRSA coverage as above, change to doxy when better acute hypoxic respiratory failure due to above supplemental O2, wean as tolerated; currently on HFNC 50% fiO2, 50 Lpm, wean off O2 to nasal canula if possible acute asthma exacerbation continue solu-medrol 40 mg q8h, continue nebs + montelukast depression continue escitalopram add low dose ativan for anxiety dementia continue donepezil GERD PPI hypothyroidism continue LT4 HTN amlodipine, furosemide Leukocytosis, likely d/t steroid, monitor VTE ppx enoxaparin dispo eventual return to LTC In my clinical judgment, the patient requires continued inpatient hospitalization for the following reasons: hypoxia, IV ABX Total time managing care of this patient today: 45 minutes. Quality Stroke Does the patient have a stroke diagnosis?: No VTE Prior VTE?: No VTE Risk Level:: Medical - moderate - high VTE Device Contraindication: N/A - Device Ordered VTE Drug Contraindication: N/A - Med Ordered
[2024-10-27] MEDS: Montelukast Sodium 10 MG TABLET PO (20:11)
[2024-10-28] VITALS (11 sets, daily range): BP systolic 123–137; BP diastolic 59–68; PULSE 65–99; RESP 14–20; TEMP 36.5–37.2; O2SAT 90–95
[2024-10-28] MEDS: methylPREDNISolone Sod Succ 40 MG/ML VIAL IVPUSH ×3 (01:08→17:38)
[2024-10-28] MEDS: 0.9 % Sodium Chloride Flush 3 ML SYRINGE IVFLUSH ×4 (01:08→21:22)
[2024-10-28] MEDS: Piperacillin Sodium/Tazobactam 4.5 GM in 0.9 % Sodium Chloride 100 ML IV ×4 (01:09→17:39)
[2024-10-28 01:53] LABS: Legionella Ag Urine Not Detected (Not Detected)
[2024-10-28] MEDS: Levothyroxine Sodium 88 MCG TABLET PO (06:42)
[2024-10-28] MEDS: LORazepam 0.5 MG TABLET PO (06:46)
[2024-10-28 06:57] LABS: Creatinine Clr Calc Pharmacy 96.2; Estimated Glomerular Filt Rate > 60
[2024-10-28] MEDS: Cholecalciferol (Vitamin D3) 25 MCG TABLET PO (07:56)
[2024-10-28] MEDS: Escitalopram Oxalate 5 MG TABLET PO (07:56)
[2024-10-28] MEDS: Furosemide 20 MG TABLET PO (07:56)
[2024-10-28] MEDS: Multivitamin TABLET 1 TAB PO (07:56)
[2024-10-28] MEDS: Heparin Sodium,Porcine 5,000 UNIT/ML VIAL 5000 UNIT SUBCUT ×2 (07:57→21:20)
[2024-10-28] MEDS: amLODIPine Besylate 5 MG TABLET PO (07:57)
[2024-10-28] MEDS: Donepezil HCl 5 MG TABLET PO (07:57)
[2024-10-28] MEDS: vancomycin HCL 1,250 MG in 0.9 % Sodium Chloride 250 ML 166.66 MG IV (07:57)
[2024-10-28] MEDS: Albuterol/Iprat 2.5/0.5MG 3 ML AMPUL.NEB INHALE ×4 (08:17→19:02)
--- NOTE | 2024-10-28 10:43 | MHC.CLN ---
NUTRITION VARIABLE PO NOTED. ADDING ENSURE TID TO PROMOTE NUTRITIONAL INTAKE. SUPPLEMENT PROVIDES 1050 KCALS, 60 G PROTEIN. SKIN WITH REDNESS TO HEELS AND MASD TO BUTTOCKS. RD TO MONITOR WEEKLY.
--- NOTE | 2024-10-28 11:15 | P.PNIM_ITS ---
Subjective Subjective Date of Service: 10/28/24 Interval History: Continue to be on highflow, CXR yesterday, shows diffuse airspace disease? ARDS Physical Exam 2 Vital Signs: Vital Signs: Last Vital Signs Temp 98.3 F 10/28/24 10:49 Pulse 75 10/28/24 10:49 Resp 20 10/28/24 10:49 BP 124/60 10/28/24 10:49 Pulse Ox 94 10/28/24 10:49 O2 Del Method High Flow Nasal C annula 10/28/24 10:49 O2 Flow Rate 59 10/28/24 10:49 FiO2 33 10/28/24 10:49 Oxygen Flow Rate 4 10/20/24 17:35 BMI result Body Mass Index 30.4 Constitutional - Awake and Alert, No apparent distress Eyes - PERRLA, EOMI Cardiovascular - S1S2, RRR, No edema Respiratory - Normal lung expansion, Normal respiratory effort, mild respiratory distress, diffuse expiratory wheezing Extremities - no calf tenderness bilaterally, no swelling Skin - Warm/Dry Neurological - Alert & oriented x3, CN II-XII in tact, 5/5 strength BUE and BLE Psychological - anxious appearing Objective Data Active Medications Acetaminophen (Acetaminophen 325 Mg Tablet) 975 mg PO Q6H PRN PRN Reason: Pain, Mild 1-3,fever,headache Last Admin: 10/23/24 18:16 Dose: 975 mg Documented By: TANMAY Albuterol/Ipratropium (Albuterol/Iprat 2.5/0.5mg 3 Ml Ampul.Neb) 3 ml INHALE RQ4H WHILE AWAKE [facility] Last Admin: 10/28/24 08:17 Dose: 3 ml Documented By: GODFREY Amlodipine Besylate (Amlodipine Besylate 5 Mg Tablet) 5 mg PO DAILY [facility]; Protocol Last Admin: 10/28/24 07:57 Dose: 5 mg Documented By: ZOILA Donepezil HCl (Donepezil Hcl 5 Mg Tablet) 5 mg PO DAILY [facility] Last Admin: 10/28/24 07:57 Dose: 5 mg Documented By: ZOILA Escitalopram Oxalate (Escitalopram Oxalate 5 Mg Tablet) 5 mg PO DAILY [facility] Last Admin: 10/28/24 07:56 Dose: 5 mg Documented By: ZOILA Furosemide (Furosemide 20 Mg Tablet) 20 mg PO DAILY [facility]; Protocol Last Admin: 10/28/24 07:56 Dose: 20 mg Documented By: ZOILA Heparin Sodium (Porcine) (Heparin Sodium,Porcine 5,000 Unit/Ml Vial) 5,000 unit SUBCUT Q12H [facility] Last Admin: 10/28/24 07:57 Dose: 5,000 unit Documented By: ZOILA Piperacillin Sod/Tazobactam (Sod 4.5 gm/ Sodium Chloride) 100 mls @ 200 mls/hr IV Q6H [facility] Last Infusion: 10/28/24 07:23 Dose: Infused Documented By: ZOILA Vancomycin HCl 1,250 mg/ (Sodium Chloride) 250 mls @ 166.667 mls/hr IV Q12H [facility] Last Infusion: 10/28/24 10:25 Dose: Infused Documented By: ZOILA Levothyroxine Sodium (Levothyroxine Sodium 88 Mcg Tablet) 88 mcg PO DAILY@0600 [facility] Last Admin: 10/28/24 06:42 Dose: 88 mcg Documented By: ZOILA Loperamide HCl (Loperamide Hcl 2 Mg Capsule) 2 mg PO Q4H PRN PRN Reason: Diarrhea Methylprednisolone Sodium Succinate (Methylprednisolone Sod Succ 40 Mg/Ml Vial) 40 mg IVPUSH Q8H [facility] Last Admin: 10/28/24 07:57 Dose: 40 mg Documented By: ZOILA Montelukast Sodium (Montelukast Sodium 10 Mg Tablet) 10 mg PO BEDTIME [facility] Last Admin: 10/27/24 20:11 Dose: 10 mg Documented By: JENNIFER Multivitamins/Vitamin C (Multivitamin Tablet) 1 tab PO DAILY [facility] Last Admin: 10/28/24 07:56 Dose: 1 tab Documented By: ZOILA Pharmacy Consult (Consult Rx Vancomycin Dosing) 1 each MISCELLANE DAILY PRN PRN Reason: Consult order Sodium Chloride (0.9 % Sodium Chloride Flush 3 Ml Syringe) 3 ml IVFLUSH QSHIFT [facility] Last Admin: 10/28/24 08:02 Dose: 3 ml Documented By: ZOILA Vitamin D (Cholecalciferol (Vitamin D3) 25 Mcg Tablet) 25 mcg PO DAILY [facility] Last Admin: 10/28/24 07:56 Dose: 25 mcg Documented By: ZOILA Labs 10/24/24 06:39 06/07/25 07:28 Labs: Laboratory Results - last 24 hr 10/21/24 10/28/24 11:41 06:21 Estim Creat Clear Calc 96.2 Estimated GFR > 60 Ur L.pneumophila Ag Not Detected Assessment and Plan (1) Acute hypoxic respiratory failure: Status: Acute (2) Multifocal pneumonia: Status: Acute Plan 79yo F LTC SNF resident with dementia, HLD, hypothyrodism, HTN, asthma, and PUD sent in with hypoxia, dyspnea, and recently diagnosed pneumonia admitted for sepsis and acute hypoxic respiratory failure due to PNA PNA 10/20- vancomycin + piperacillin-tazobactam, follow BCx, trend PCT, MRSA swab positive, RPP negative, urinary antigens for Legionella and pneumococcus pending continue MRSA coverage as above, change to doxy when better. CXR 10/27 show persistent airspace disease and ? ARDS. Will get pulmonology input noted acute hypoxic respiratory failure due to above supplemental O2, wean as tolerated; currently on HFNC 50% fiO2, 50 Lpm, wean off O2 to nasal canula if possible acute asthma exacerbation continue solu-medrol 40 mg q8h, continue nebs + montelukast depression continue escitalopram low dose ativan for anxiety dementia continue donepezil GERD PPI hypothyroidism continue LT4 HTN amlodipine, furosemide Leukocytosis, likely d/t steroid, monitor VTE ppx enoxaparin dispo eventual return to LTC In my clinical judgment, the patient requires continued inpatient hospitalization for the following reasons: hypoxia, IV ABX prognosis is guarded Total time managing care of this patient today: 45 minutes. Quality Stroke Does the patient have a stroke diagnosis?: No VTE Prior VTE?: No VTE Risk Level:: Medical - moderate - high VTE Device Contraindication: N/A - Device Ordered VTE Drug Contraindication: N/A - Med Ordered
--- NOTE | 2024-10-28 11:30 | MHC.CM.PN ---
EMR REVIEWED, PT W/PNA AND NOW W/ARDS REMAINS ON HI-FLOW O2, PLAN CONT'S TO BE RETURN TO LTC AT [facility] ONCE MEDICALLY CLEARED, CM WILL CONT TO FOLLOW DC NEEDS.
--- NOTE | 2024-10-28 15:27 | PM.CNPUL ---
History of Present Illness History of Present Illness Consult date: 10/28/24 Chief complaint: snf diagnosed pneumonia Narrative: Year old lady with underlying history of dementia, hypothyroidism asthma GERD admitted on 10/20/2024 with hypoxia and dyspnea with chest x-ray suggestive of right upper lobe pneumonia with possible background of pulmonary edema. Patient has been treated with empiric broad-spectrum antibiotics as her cultures remain negative to date and diuretic. However, she persists with significant hypoxia requiring high-flow nasal cannula. Review of Systems Cardiovascular: Cardiovascular: Denies chest pain, Reports pedal edema, Reports dyspnea, Reports dyspnea on exertion and Reports orthopnea Respiratory: Respiratory: Reports cough, Denies excessive phlegm production, Reports dyspnea and Reports dyspnea on exertion PMFSH Past Medical History Medical History (Updated 10/28/24 @ 15:31 by Ricardo Diaz MD) Hypothyroid Alcohol dependence Lewy body dementia Acute encephalopathy Pneumonia Sepsis Social History Social History Household Members: None Housing: Assisted Living Facility Housing Other:: [facility] Do you presently have visiting nurse or other home services: Yes Comment: NOT IMPULSIVE OR ATTEMPTING TO GET OOB Patient Tobacco Use Status: Never used Tobacco Second Hand Smoke Exposure: Yes Advance Directives Date on File: 12/10/23 service: No Meds Allergies Allergy/AdvReac Type Severity Reaction Status Date / Time No Known Allergies Allergy Verified 10/20/24 17:42 Active Medications: Current Medications Acetaminophen (Acetaminophen 325 Mg Tablet) 975 mg PO Q6H PRN PRN Reason: Pain, Mild 1-3,fever,headache Last Admin: 10/23/24 18:16 Dose: 975 mg Albuterol/Ipratropium (Albuterol/Iprat 2.5/0.5mg 3 Ml Ampul.Neb) 3 ml INHALE RQ4H WHILE AWAKE [facility] Last Admin: 10/28/24 15:15 Dose: 3 ml Amlodipine Besylate (Amlodipine Besylate 5 Mg Tablet) 5 mg PO DAILY [facility]; Protocol Last Admin: 10/28/24 07:57 Dose: 5 mg Donepezil HCl (Donepezil Hcl 5 Mg Tablet) 5 mg PO DAILY [facility] Last Admin: 10/28/24 07:57 Dose: 5 mg Escitalopram Oxalate (Escitalopram Oxalate 5 Mg Tablet) 5 mg PO DAILY [facility] Last Admin: 10/28/24 07:56 Dose: 5 mg Furosemide (Furosemide 20 Mg Tablet) 20 mg PO DAILY [facility]; Protocol Last Admin: 10/28/24 07:56 Dose: 20 mg Heparin Sodium (Porcine) (Heparin Sodium,Porcine 5,000 Unit/Ml Vial) 5,000 unit SUBCUT Q12H [facility] Last Admin: 10/28/24 07:57 Dose: 5,000 unit Piperacillin Sod/Tazobactam (Sod 4.5 gm/ Sodium Chloride) 100 mls @ 200 mls/hr IV Q6H [facility] Last Admin: 10/28/24 13:55 Dose: 200 mls/hr Vancomycin HCl 1,250 mg/ (Sodium Chloride) 250 mls @ 166.667 mls/hr IV Q12H [facility] Last Infusion: 10/28/24 10:25 Dose: Infused Levothyroxine Sodium (Levothyroxine Sodium 88 Mcg Tablet) 88 mcg PO DAILY@0600 [facility] Last Admin: 10/28/24 06:42 Dose: 88 mcg Loperamide HCl (Loperamide Hcl 2 Mg Capsule) 2 mg PO Q4H PRN PRN Reason: Diarrhea Methylprednisolone Sodium Succinate (Methylprednisolone Sod Succ 40 Mg/Ml Vial) 40 mg IVPUSH Q8H [facility] Last Admin: 10/28/24 07:57 Dose: 40 mg Montelukast Sodium (Montelukast Sodium 10 Mg Tablet) 10 mg PO BEDTIME [facility] Last Admin: 10/27/24 20:11 Dose: 10 mg Multivitamins/Vitamin C (Multivitamin Tablet) 1 tab PO DAILY [facility] Last Admin: 10/28/24 07:56 Dose: 1 tab Pharmacy Consult (Consult Rx Vancomycin Dosing) 1 each MISCELLANE DAILY PRN PRN Reason: Consult order Sodium Chloride (0.9 % Sodium Chloride Flush 3 Ml Syringe) 3 ml IVFLUSH QSHIFT [facility] Last Admin: 10/28/24 08:02 Dose: 3 ml Vitamin D (Cholecalciferol (Vitamin D3) 25 Mcg Tablet) 25 mcg PO DAILY [facility] Last Admin: 10/28/24 07:56 Dose: 25 mcg Home Medications ?Medication ?Instructions ?Recorded ?Confirmed ?Last Taken ?Type cholecalciferol (vitamin D3) 25 25 mcg PO DAILY 12/11/23 10/20/24 Unknown History mcg (1,000 unit) capsule (Vitamin D3) donepezil 5 mg tablet 5 mg PO DAILY 12/11/23 10/20/24 Unknown History levothyroxine 88 mcg tablet 88 mcg PO DAILY@0600 12/11/23 10/20/24 Unknown History omeprazole 20 mg capsule,delayed 20 mg PO DAILY 12/11/23 10/20/24 Unknown History release vitamin B complex 1 cap PO DAILY 12/11/23 10/20/24 Unknown History Lactobacillus acidophilus 10 10,000 mmu cells PO BID 10/20/24 10/20/24 Unknown History billion cell capsule (Probiotic) acetaminophen 325 mg tablet 325 mg PO Q8H PRN Mild Pain (Scale 10/20/24 10/20/24 Unknown History Score 1-4) albuterol sulfate 2.5 mg/3 mL 2.5 mg inhalation Q4H PRN Wheezing 10/20/24 10/20/24 Unknown History (0.083 %) solution for nebulization albuterol sulfate 90 mcg/actuation 2 puff inhalation Q4-6H PRN 10/20/24 10/20/24 Unknown History aerosol inhaler Shortness Of Breath Or Wheezing azithromycin 250 mg tablet 250 mg PO DAILY 10/20/24 10/20/24 10/20/24 History (Zithromax Z-Herrera) cefuroxime axetil 500 mg tablet 1,000 mg PO DAILY 10/20/24 10/20/24 10/19/24 History citalopram 10 mg tablet 10 mg PO DAILY 10/20/24 10/20/24 Unknown History diclofenac sodium 1 % topical gel 4 g topical QID 10/20/24 10/20/24 Unknown History ferrous sulfate 325 mg (65 mg 325 mg PO Q48H 10/20/24 10/20/24 Unknown History iron) tablet fluticasone 100 mcg-salmeterol 50 1 inh inhalation BID 10/20/24 10/20/24 Unknown History mcg/dose blistr powdr for inhalation (Advair Diskus) fluticasone propionate 50 1 spray intranasal BID PRN stuffy 10/20/24 10/20/24 Unknown History mcg/actuation nasal nose spray,suspension furosemide 20 mg tablet 20 mg PO DAILY 10/20/24 10/20/24 Unknown History lidocaine 4 % topical patch 1 patch topical BID PRN lower back 10/20/24 10/20/24 Unknown History pain montelukast 10 mg tablet 10 mg PO DAILY 10/20/24 10/20/24 Unknown History (Singulair) prednisone 10 mg tablet 10 mg PO DIRECTED 10/20/24 10/20/24 Unknown History Physical Exam Vital Signs: Vital Signs: Last Vital Signs Temp 98.3 F 10/28/24 10:49 Pulse 71 10/28/24 15:15 Resp 17 10/28/24 15:15 BP 124/60 10/28/24 10:49 Pulse Ox 94 10/28/24 10:49 O2 Del Method High Flow Nasal C annula 10/28/24 10:49 O2 Flow Rate 59 10/28/24 10:49 FiO2 33 10/28/24 10:49 Oxygen Flow Rate 4 10/20/24 17:35 BMI result Body Mass Index 30.4 Const: General: no acute distress, alert and awake Eyes: Sclerae: sclerae normal EOM: EOMs intact bilaterally Neck: Neck: Yes no lymphadenopathy, Yes trachea midline and Yes supple Resp: Effort & Inspection: normal respiratory effort and no respiratory distress Auscultation: crackles (Mild bilateral) Cardio: Rate: regular rate Rhythm: regular rhythm Heart sounds: no gallops, no murmurs and no rubs GI: Palpation (GI): Soft to palpation and Other GI palpation findings present ( Nontender) Auscultation: normal bowel sounds Extrem: General: No clubbing, No cyanosis and Yes edema (Trace bilateral) Results Laboratory Findings 10/24/24 06:39 10/28/24 06:21 Abnormal lab findings: Abnormal Labs 10/20/24 10/21/24 10/21/24 18:11 06:39 11:41 WBC 17.5 H 15.7 H RBC 3.88 L D 3.33 L Hgb 10.8 L Hct 36.4 L 31.7 L MCH MCHC Plt Count Immature Gran % (Auto) Neut % (Auto) Lymph % (Auto) [place] % (Auto) Lymph # (Auto) Abs Immat Gran (auto) Absolute Neuts (auto) Neutrophils % (Manual) 86 H 86 H Band Neutrophils % 10 H 11 H Lymphocytes % (Manual) 3 L 1 L Monocytes % (Manual) 1 L 1 L Abs Neuts (Manual) 16.8 H 15.2 H Lymphocytes # (Manual) 0.5 L 0.2 L VBG pH VBG HCO3 Chloride 109 H BUN Creatinine Random Glucose 190 H 148 H Lactic Acid 2.7 H* Calcium AST 46 H B-Natriuretic Peptide 116 H Albumin 3.4 L Ur Specific [place] >= 1.030 H Urine Protein 100 (2+) H Urine RBC 6-10 H Nasal Screen MRSA (PCR) Nasal S. aureus Screen Random Vancomycin 10/21/24 10/21/24 10/22/24 12:15 16:35 06:38 WBC 19.7 H RBC 3.28 L Hgb 10.7 L Hct 31.8 L MCH MCHC Plt Count Immature Gran % (Auto) Neut % (Auto) Lymph % (Auto) [place] % (Auto) Lymph # (Auto) Abs Immat Gran (auto) Absolute Neuts (auto) Neutrophils % (Manual) Band Neutrophils % Lymphocytes % (Manual) Monocytes % (Manual) Abs Neuts (Manual) Lymphocytes # (Manual) VBG pH VBG HCO3 Chloride 109 H BUN 20 H Creatinine Random Glucose 127 H Lactic Acid Calcium AST B-Natriuretic Peptide Albumin Ur Specific [place] Urine Protein Urine RBC Nasal Screen MRSA (PCR) POSITIVE A Nasal S. aureus Screen POSITIVE A Random Vancomycin 11.4 L 10/22/24 10/23/24 10/23/24 16:52 09:06 09:07 WBC 21.5 H RBC 3.46 L Hgb 11.6 L Hct 33.0 L MCH 33.5 H MCHC 35.2 H Plt Count Immature Gran % (Auto) 4.4 H Neut % (Auto) 89.7 H Lymph % (Auto) 4.1 L [place] % (Auto) 1.3 L Lymph # (Auto) 0.9 L Abs Immat Gran (auto) 0.95 H Absolute Neuts (auto) 19.2 H Neutrophils % (Manual) Band Neutrophils % Lymphocytes % (Manual) Monocytes % (Manual) Abs Neuts (Manual) Lymphocytes # (Manual) VBG pH VBG HCO3 Chloride BUN Creatinine Random Glucose 149 H Lactic Acid Calcium AST B-Natriuretic Peptide 417 H Albumin Ur Specific [place] Urine Protein Urine RBC Nasal Screen MRSA (PCR) Nasal S. aureus Screen Random Vancomycin 12.2 L 10/23/24 10/23/24 10/24/24 09:08 09:13 06:39 WBC 21.6 H 23.7 H RBC 3.46 L 3.31 L Hgb 11.7 L 11.0 L Hct 32.5 L 31.7 L MCH 33.8 H 33.2 H MCHC 36.0 H Plt Count 435 H Immature Gran % (Auto) Neut % (Auto) Lymph % (Auto) [place] % (Auto) Lymph # (Auto) Abs Immat Gran (auto) Absolute Neuts (auto) Neutrophils % (Manual) 93 H Band Neutrophils % 2 L Lymphocytes % (Manual) 3 L Monocytes % (Manual) Abs Neuts (Manual) 22.5 H Lymphocytes # (Manual) 0.7 L VBG pH 7.47 H VBG HCO3 29 H Chloride BUN Creatinine Random Glucose 132 H Lactic Acid Calcium 7.9 L D AST B-Natriuretic Peptide Albumin Ur Specific [place] Urine Protein Urine RBC Nasal Screen MRSA (PCR) Nasal S. aureus Screen Random Vancomycin 10/24/24 10/25/24 10/26/24 06:47 08:13 06:45 WBC RBC Hgb Hct MCH MCHC Plt Count Immature Gran % (Auto) Neut % (Auto) Lymph % (Auto) [place] % (Auto) Lymph # (Auto) Abs Immat Gran (auto) Absolute Neuts (auto) Neutrophils % (Manual) Band Neutrophils % Lymphocytes % (Manual) Monocytes % (Manual) Abs Neuts (Manual) Lymphocytes # (Manual) VBG pH 7.52 H VBG HCO3 32 H Chloride BUN Creatinine 0.48 L 0.48 L Random Glucose Lactic Acid Calcium 7.7 L AST B-Natriuretic Peptide Albumin Ur Specific [place] Urine Protein Urine RBC Nasal Screen MRSA (PCR) Nasal S. aureus Screen Random Vancomycin 10/27/24 10/28/24 06:06 06:21 WBC RBC Hgb Hct MCH MCHC Plt Count Immature Gran % (Auto) Neut % (Auto) Lymph % (Auto) [place] % (Auto) Lymph # (Auto) Abs Immat Gran (auto) Absolute Neuts (auto) Neutrophils % (Manual) Band Neutrophils % Lymphocytes % (Manual) Monocytes % (Manual) Abs Neuts (Manual) Lymphocytes # (Manual) VBG pH VBG HCO3 Chloride BUN Creatinine 0.49 L 0.47 L Random Glucose Lactic Acid Calcium AST B-Natriuretic Peptide Albumin Ur Specific [place] Urine Protein Urine RBC Nasal Screen MRSA (PCR) Nasal S. aureus Screen Random Vancomycin Microbiology: Microbiology 10/20/24 18:11 Blood - Venous Blood Culture - Final No growth after 5 days. 10/20/24 18:11 Blood - Venous Blood Culture - Final No growth after 5 days. Assessment and Plan (1) Acute hypoxic respiratory failure: Status: Acute (2) Community acquired pneumonia: Status: Acute (3) Pulmonary edema: Status: Acute Plan Impression: 79-year-old lady admitted with acute hypoxic respiratory failure secondary to combination of pneumonia and pulmonary edema. Chest x-rays show evolving pulmonary infiltrate and bilateral edema. Recommendation: Agree with current broad-spectrum antibiotic coverage. Would consider increasing daily diuretic. If oxygen requirements not improving in next few days, would consider obtaining CT chest. Procedures Date of Service Date of Service: 10/28/24
[2024-10-28 18:30] LABS: Vancomycin Random 20.3 mcg/mL (15-20)
--- NOTE | 2024-10-28 18:40 | HE.PHANOTE ---
Re: Vanco renal function improving. Trough returned high at 20.3. Dose was reduced to 1,000mg q12h with predicted AUC 401, predicted trough 11.7. Trough is running 6 mg/L higher than predicted trough. Next trough 10/29 @ 1700.
[2024-10-28] MEDS: vancomycin HCL 1,000 MG in 0.9 % Sodium Chloride 250 ML 270 MG IV (21:21)
[2024-10-28] MEDS: Montelukast Sodium 10 MG TABLET PO (21:21)
[2024-10-29] VITALS (13 sets, daily range): BP systolic 117–166; BP diastolic 58–85; PULSE 69–94; RESP 16–22; TEMP 36.2–37.2; O2SAT 90–96
[2024-10-29] MEDS: Piperacillin Sodium/Tazobactam 4.5 GM in 0.9 % Sodium Chloride 100 ML IV ×5 (01:34→23:04)
[2024-10-29] MEDS: methylPREDNISolone Sod Succ 40 MG/ML VIAL IVPUSH ×4 (01:35→23:03)
[2024-10-29] MEDS: Levothyroxine Sodium 88 MCG TABLET PO (05:53)
[2024-10-29] MEDS: vancomycin HCL 1,000 MG in 0.9 % Sodium Chloride 250 ML 270 MG IV ×2 (06:23→20:15)
[2024-10-29] MEDS: Albuterol/Iprat 2.5/0.5MG 3 ML AMPUL.NEB INHALE ×4 (07:39→18:59)
[2024-10-29 08:26] LABS: Creatinine Clr Calc Pharmacy 94.3; Estimated Glomerular Filt Rate > 60
[2024-10-29] MEDS: Donepezil HCl 5 MG TABLET PO (08:35)
[2024-10-29] MEDS: Multivitamin TABLET 1 TAB PO (08:35)
[2024-10-29] MEDS: Cholecalciferol (Vitamin D3) 25 MCG TABLET PO (08:35)
[2024-10-29] MEDS: Heparin Sodium,Porcine 5,000 UNIT/ML VIAL 5000 UNIT SUBCUT ×2 (08:35→20:15)
[2024-10-29] MEDS: Escitalopram Oxalate 5 MG TABLET PO (08:35)
[2024-10-29] MEDS: Furosemide 20 MG TABLET PO (08:35)
[2024-10-29] MEDS: amLODIPine Besylate 5 MG TABLET PO (08:35)
[2024-10-29] MEDS: 0.9 % Sodium Chloride Flush 3 ML SYRINGE IVFLUSH ×2 (08:35→20:15)
[2024-10-29] MEDS: Furosemide 40 MG/4 ML VIAL IVPUSH (09:45)
--- NOTE | 2024-10-29 12:19 | HO.PM.IMPN ---
Subjective Subjective Date of Service: 10/29/24 Interval History: No signficnat change in her condition, s she remains on highflow Physical Exam Vital Signs: Vital Signs: Last Vital Signs Temp 97.2 F 10/29/24 07:40 Pulse 84 10/29/24 12:02 Resp 20 10/29/24 12:02 BP 135/73 10/29/24 07:40 Pulse Ox 91 L 10/29/24 07:40 O2 Del Method High Flow Nasal C annula 10/29/24 07:40 O2 Flow Rate 50 10/29/24 07:40 FiO2 65 10/29/24 07:40 Oxygen Flow Rate 4 10/20/24 17:35 BMI result Body Mass Index 30.4 Constitutional - Awake and Alert, No apparent distress Eyes - PERRLA, EOMI Cardiovascular - S1S2, RRR, No edema Respiratory - Normal lung expansion, Normal respiratory effort, mild respiratory distress, diffuse expiratory wheezing Extremities - no calf tenderness bilaterally, no swelling Skin - Warm/Dry Neurological - Alert & oriented x3, CN II-XII in tact, 5/5 strength BUE and BLE Psychological - anxious appearing Objective Data Active Medications Acetaminophen (Acetaminophen 325 Mg Tablet) 975 mg PO Q6H PRN PRN Reason: Pain, Mild 1-3,fever,headache Last Admin: 10/23/24 18:16 Dose: 975 mg Documented By: TANMAY Amlodipine Besylate (Amlodipine Besylate 5 Mg Tablet) 5 mg PO DAILY [facility]; Protocol Last Admin: 10/29/24 08:35 Dose: 5 mg Documented By: SANYA Donepezil HCl (Donepezil Hcl 5 Mg Tablet) 5 mg PO DAILY [facility] Last Admin: 10/29/24 08:35 Dose: 5 mg Documented By: SANYA Escitalopram Oxalate (Escitalopram Oxalate 5 Mg Tablet) 5 mg PO DAILY [facility] Last Admin: 10/29/24 08:35 Dose: 5 mg Documented By: SANYA Furosemide (Furosemide 40 Mg/4 Ml Vial) 40 mg IVPUSH DAILY [facility]; Protocol Last Admin: 10/29/24 09:45 Dose: 40 mg Documented By: SANYA Heparin Sodium (Porcine) (Heparin Sodium,Porcine 5,000 Unit/Ml Vial) 5,000 unit SUBCUT Q12H [facility] Last Admin: 10/29/24 08:35 Dose: 5,000 unit Documented By: SANYA Piperacillin Sod/Tazobactam (Sod 4.5 gm/ Sodium Chloride) 100 mls @ 200 mls/hr IV Q6H [facility] Last Infusion: 10/29/24 11:39 Dose: Infused Documented By: SANYA Vancomycin HCl 1,000 mg/ (Sodium Chloride) 270 mls @ 270 mls/hr IV Q12H [facility] Last Infusion: 10/29/24 07:15 Dose: Infused Documented By: SANYA Levothyroxine Sodium (Levothyroxine Sodium 88 Mcg Tablet) 88 mcg PO DAILY@0600 [facility] Last Admin: 10/29/24 05:53 Dose: 88 mcg Documented By: JACKELINE Loperamide HCl (Loperamide Hcl 2 Mg Capsule) 2 mg PO Q4H PRN PRN Reason: Diarrhea Methylprednisolone Sodium Succinate (Methylprednisolone Sod Succ 40 Mg/Ml Vial) 40 mg IVPUSH Q8H [facility] Last Admin: 10/29/24 08:35 Dose: 40 mg Documented By: SANYA Montelukast Sodium (Montelukast Sodium 10 Mg Tablet) 10 mg PO BEDTIME [facility] Last Admin: 10/28/24 21:21 Dose: 10 mg Documented By: TAVIA Multivitamins/Vitamin C (Multivitamin Tablet) 1 tab PO DAILY [facility] Last Admin: 10/29/24 08:35 Dose: 1 tab Documented By: SANYA Pharmacy Consult (Consult Rx Vancomycin Dosing) 1 each MISCELLANE DAILY PRN PRN Reason: Consult order Sodium Chloride (0.9 % Sodium Chloride Flush 3 Ml Syringe) 3 ml IVFLUSH QSHIFT [facility] Last Admin: 10/29/24 08:35 Dose: 3 ml Documented By: SANYA Vitamin D (Cholecalciferol (Vitamin D3) 25 Mcg Tablet) 25 mcg PO DAILY [facility] Last Admin: 10/29/24 08:35 Dose: 25 mcg Documented By: SANYA Labs 10/24/24 06:39 10/29/24 07:28 Labs: Laboratory Results - last 24 hr 10/28/24 10/29/24 16:52 07:28 Hold Purple Top SEE NOTE Estim Creat Clear Calc 94.3 Estimated GFR > 60 Random Vancomycin 20.3 H Assessment and Plan (1) Acute hypoxic respiratory failure: Status: Acute (2) Multifocal pneumonia: Status: Acute Plan 79yo F LTC SNF resident with dementia, HLD, hypothyrodism, HTN, asthma, and PUD sent in with hypoxia, dyspnea, and recently diagnosed pneumonia admitted for sepsis and acute hypoxic respiratory failure due to PNA PNA 10/20- vancomycin + piperacillin-tazobactam, follow BCx, trend PCT, MRSA swab positive, RPP negative, urinary antigens for Legionella and pneumococcus pending continue MRSA coverage as above, change to doxy when better. CXR 10/27 show persistent airspace disease and ? ARDS. Will get pulmonology input noted, adding IV Lasix acute hypoxic respiratory failure due to above supplemental O2, wean as tolerated; currently on HFNC 50% fiO2, 50 Lpm, wean off O2 to nasal canula if possible acute asthma exacerbation continue solu-medrol 40 mg q8h, continue nebs + montelukast depression continue escitalopram low dose ativan for anxiety dementia continue donepezil GERD PPI hypothyroidism continue LT4 HTN amlodipine, furosemide Leukocytosis, likely d/t steroid, monitor VTE ppx enoxaparin dispo eventual return to LTC In my clinical judgment, the patient requires continued inpatient hospitalization for the following reasons: hypoxia, IV ABX prognosis is guarded Total time managing care of this patient today: 45 minutes. Quality Stroke Does the patient have a stroke diagnosis?: No VTE Prior VTE?: No VTE Risk Level:: Medical - moderate - high VTE Device Contraindication: N/A - Device Ordered VTE Drug Contraindication: N/A - Med Ordered
[2024-10-29 12:32] LABS: Hematocrit 33.5 % (37.0-47.0); Hemoglobin 11.3 g/dl (12.0-16.0); Mean Corpuscular HGB Conc 33.7 g/dl (31.0-35.0); Mean Corpuscular Hemoglobin 32.3 pg (27.0-33.0); Mean Corpuscular Volume 95.7 fL (80.0-98.0); Mean Platelet Volume 9.5 fL (9.4-12.3); Platelet Count 607 X10*3/uL (160-400); Red Cell Distribution Width 15.6 % (11.0-16.0); White Blood Count 20.6 X10*3/uL (4.8-10.8)
[2024-10-29 12:38] LABS: Anion Gap 14 (12-20); Blood Urea Nitrogen 15 mg/dL (9-16); Calcium 7.9 mg/dL (8.4-10.2); Carbon Dioxide 26 mmol/L (22-29); Chloride 103 mmol/L (96-108); Glucose Random 129 mg/dL (60-115); Potassium 4.3 mmol/L (3.3-5.1); Sodium 139 mmol/L (135-145)
[2024-10-29 13:09] LABS: SLIDE REVIEW MANUAL DIFF
[2024-10-29 13:16] LABS: Band Neutrophils Percent 2 % (3-5); Lymphocytes Absolute Manual 0.4 X10*3/uL (1.2-4.9); Lymphocytes Percent Manual 2 % (20-40); Neutrophils Absolute Manual 20.2 X10*3/uL (2.0-8.3); Neutrophils Percent Manual 96 % (45-73)
[2024-10-29 13:17] LABS: RBC Morphology NORMAL; Toxic Vacuolation PRESENT
[2024-10-29 13:18] LABS: Platelet Estimate INCREASED (NORMAL); Platelet Morphology Comment NORMAL
[2024-10-29 17:14] LABS: Vancomycin Random 16.7 mcg/mL (15-20)
[2024-10-29] MEDS: Montelukast Sodium 10 MG TABLET PO (20:15)
[2024-10-30] VITALS (14 sets, daily range): BP systolic 114–149; BP diastolic 60–77; PULSE 64–80; RESP 16–20; TEMP 36.2–36.8; O2SAT 90–95
[2024-10-30] MEDS: Levothyroxine Sodium 88 MCG TABLET PO (05:27)
[2024-10-30] MEDS: Piperacillin Sodium/Tazobactam 4.5 GM in 0.9 % Sodium Chloride 100 ML IV ×3 (05:27→17:03)
[2024-10-30] MEDS: vancomycin HCL 1,000 MG in 0.9 % Sodium Chloride 250 ML 270 MG IV ×2 (06:06→18:27)
[2024-10-30] MEDS: Albuterol/Iprat 2.5/0.5MG 3 ML AMPUL.NEB INHALE ×4 (07:30→20:15)
--- NOTE | 2024-10-30 08:22 | HO.PM.IMPN ---
Subjective Subjective Date of Service: 10/30/24 Interval History: Patient is desapointed about progress, she remains on high flow and not able to wean Physical Exam Vital Signs: Vital Signs: Last Vital Signs Temp 98.2 F 10/30/24 07:40 Pulse 80 10/30/24 07:40 Resp 17 10/30/24 07:40 BP 136/77 10/30/24 07:40 Pulse Ox 90 L 10/30/24 07:40 O2 Del Method High Flow Nasal C annula 10/30/24 07:40 O2 Flow Rate 50 10/30/24 07:40 FiO2 80 10/30/24 07:40 Oxygen Flow Rate 4 10/20/24 17:35 BMI result Body Mass Index 30.4 Const: Other: General: AO to self, place, anxious Resp: blaise rhonchi CVS: S1,S2,RRR, trace leg edema GI: +BS, NT, no distention Skin: No rash Neuro: motor grossly intact Psych: anxious Objective Data Active Medications Acetaminophen (Acetaminophen 325 Mg Tablet) 975 mg PO Q6H PRN PRN Reason: Pain, Mild 1-3,fever,headache Last Admin: 10/23/24 18:16 Dose: 975 mg Documented By: TANMAY Albuterol/Ipratropium (Albuterol/Iprat 2.5/0.5mg 3 Ml Ampul.Neb) 3 ml INHALE RQ4H WHILE AWAKE [facility] Last Admin: 10/30/24 07:30 Dose: 3 ml Documented By: NANI Amlodipine Besylate (Amlodipine Besylate 5 Mg Tablet) 5 mg PO DAILY [facility]; Protocol Last Admin: 10/29/24 08:35 Dose: 5 mg Documented By: SANYA Donepezil HCl (Donepezil Hcl 5 Mg Tablet) 5 mg PO DAILY [facility] Last Admin: 10/29/24 08:35 Dose: 5 mg Documented By: SANYA Escitalopram Oxalate (Escitalopram Oxalate 5 Mg Tablet) 5 mg PO DAILY [facility] Last Admin: 10/29/24 08:35 Dose: 5 mg Documented By: SANYA Furosemide (Furosemide 40 Mg/4 Ml Vial) 40 mg IVPUSH DAILY [facility]; Protocol Last Admin: 10/29/24 09:45 Dose: 40 mg Documented By: SANYA Heparin Sodium (Porcine) (Heparin Sodium,Porcine 5,000 Unit/Ml Vial) 5,000 unit SUBCUT Q12H [facility] Last Admin: 10/29/24 20:15 Dose: 5,000 unit Documented By: LAW Piperacillin Sod/Tazobactam (Sod 4.5 gm/ Sodium Chloride) 100 mls @ 200 mls/hr IV Q6H [facility] Last Infusion: 10/30/24 05:58 Dose: Infused Documented By: LAW Vancomycin HCl 1,000 mg/ (Sodium Chloride) 270 mls @ 270 mls/hr IV Q12H [facility] Last Admin: 10/30/24 06:06 Dose: 270 mls/hr Documented By: LAW Levothyroxine Sodium (Levothyroxine Sodium 88 Mcg Tablet) 88 mcg PO DAILY@0600 [facility] Last Admin: 10/30/24 05:27 Dose: 88 mcg Documented By: LAW Loperamide HCl (Loperamide Hcl 2 Mg Capsule) 2 mg PO Q4H PRN PRN Reason: Diarrhea Methylprednisolone Sodium Succinate (Methylprednisolone Sod Succ 40 Mg/Ml Vial) 40 mg IVPUSH Q8H [facility] Last Admin: 10/29/24 23:03 Dose: 40 mg Documented By: LAW Montelukast Sodium (Montelukast Sodium 10 Mg Tablet) 10 mg PO BEDTIME [facility] Last Admin: 10/29/24 20:15 Dose: 10 mg Documented By: LAW Multivitamins/Vitamin C (Multivitamin Tablet) 1 tab PO DAILY [facility] Last Admin: 10/29/24 08:35 Dose: 1 tab Documented By: SANYA Pharmacy Consult (Consult Rx Vancomycin Dosing) 1 each MISCELLANE DAILY PRN PRN Reason: Consult order Sodium Chloride (0.9 % Sodium Chloride Flush 3 Ml Syringe) 3 ml IVFLUSH QSHIFT [facility] Last Admin: 10/29/24 20:15 Dose: 3 ml Documented By: LAW Vitamin D (Cholecalciferol (Vitamin D3) 25 Mcg Tablet) 25 mcg PO DAILY [facility] Last Admin: 10/29/24 08:35 Dose: 25 mcg Documented By: SANYA Labs 10/29/24 07:28 10/29/24 07:28 Labs: Laboratory Results - last 24 hr 10/29/24 10/29/24 07:28 16:50 MCV 95.7 MCH 32.3 MCHC 33.7 RDW 15.6 Plt Count 607 H D MPV 9.5 Immature Gran % (Auto) Cancelled Neut % (Auto) Cancelled Lymph % (Auto) Cancelled Banner % (Auto) Cancelled Eos % (Auto) Cancelled Baso % (Auto) Cancelled Lymph # (Auto) Cancelled Banner # (Auto) Cancelled Eos # (Auto) Cancelled Baso # (Auto) Cancelled Abs Immat Gran (auto) Cancelled Absolute Neuts (auto) Cancelled Absolute Nucleated RBC 0.000 Nucleated RBC % (auto) 0.0 Neutrophils % (Manual) 96 H Band Neutrophils % 2 L Lymphocytes % (Manual) 2 L Abs Neuts (Manual) 20.2 H Lymphocytes # (Manual) 0.4 L Toxic Vacuolation PRESENT Platelet Estimate INCREASED Plt Morphology Comment NORMAL RBC Morphology NORMAL Smear Tech's Comments MANUAL DIFF Anion Gap 14 Estim Creat Clear Calc 94.3 Estimated GFR > 60 Random Glucose 129 H Calcium 7.9 L Random Vancomycin 16.7 Assessment and Plan (1) Acute hypoxic respiratory failure: Status: Acute (2) Community acquired pneumonia: Status: Acute (3) Multifocal pneumonia: Status: Acute Plan 79yo F LTC SNF resident with dementia, HLD, hypothyrodism, HTN, asthma, and PUD sent in with hypoxia, dyspnea, and recently diagnosed pneumonia admitted for sepsis and acute hypoxic respiratory failure due to PNA PNA 10/20- vancomycin + Zosyn, MRSA swab positive, RPP negative, urinary antigens for Legionella and pneumococcus negative continue MRSA coverage as above, change to doxy when better. CXR 10/27 show persistent airspace disease and ? ARDS. Wpulmonology input noted, continue IV Lasix acute hypoxic respiratory failure due to above supplemental O2, wean as tolerated; currently on HFNC 50% fiO2, 50 Lpm, wean off O2 to nasal canula if possible acute asthma exacerbation continue solu-medrol 40 mg q8h, continue nebs + montelukast depression continue escitalopram low dose ativan for anxiety dementia continue donepezil GERD PPI hypothyroidism continue LT4 HTN amlodipine, furosemide Leukocytosis, likely d/t steroid, monitor VTE ppx enoxaparin dispo eventual return to LTC In my clinical judgment, the patient requires continued inpatient hospitalization for the following reasons: hypoxia, IV ABX prognosis is guarded, if continues to do poor will discuss hospice with family Quality Stroke Does the patient have a stroke diagnosis?: No VTE Prior VTE?: No VTE Risk Level:: Medical - moderate - high VTE Device Contraindication: N/A - Device Ordered VTE Drug Contraindication: N/A - Med Ordered
[2024-10-30] MEDS: amLODIPine Besylate 5 MG TABLET PO (08:25)
[2024-10-30] MEDS: Escitalopram Oxalate 5 MG TABLET PO (08:25)
[2024-10-30] MEDS: 0.9 % Sodium Chloride Flush 3 ML SYRINGE IVFLUSH ×2 (08:26→16:54)
[2024-10-30] MEDS: Donepezil HCl 5 MG TABLET PO (08:26)
[2024-10-30] MEDS: methylPREDNISolone Sod Succ 40 MG/ML VIAL IVPUSH ×2 (08:26→16:54)
[2024-10-30] MEDS: Heparin Sodium,Porcine 5,000 UNIT/ML VIAL 5000 UNIT SUBCUT ×2 (08:26→20:58)
[2024-10-30] MEDS: Multivitamin TABLET 1 TAB PO (08:26)
[2024-10-30] MEDS: Furosemide 40 MG/4 ML VIAL IVPUSH (08:26)
[2024-10-30] MEDS: Cholecalciferol (Vitamin D3) 25 MCG TABLET PO (08:26)
[2024-10-30 17:16] LABS: Creatinine Clr Calc Pharmacy 85.3; Estimated Glomerular Filt Rate > 60; Vancomycin Random 16.9 mcg/mL (15-20)
[2024-10-30] MEDS: Montelukast Sodium 10 MG TABLET PO (20:58)
[2024-10-31] VITALS (14 sets, daily range): BP systolic 107–137; BP diastolic 56–73; PULSE 66–96; RESP 16–22; TEMP 36.1–36.5; O2SAT 86–96
[2024-10-31] MEDS: 0.9 % Sodium Chloride Flush 3 ML SYRINGE IVFLUSH ×4 (00:36→21:04)
[2024-10-31] MEDS: Piperacillin Sodium/Tazobactam 4.5 GM in 0.9 % Sodium Chloride 100 ML IV ×4 (00:37→17:47)
[2024-10-31] MEDS: methylPREDNISolone Sod Succ 40 MG/ML VIAL IVPUSH ×3 (00:37→16:40)
[2024-10-31] MEDS: Levothyroxine Sodium 88 MCG TABLET PO (06:11)
[2024-10-31] MEDS: Albuterol/Iprat 2.5/0.5MG 3 ML AMPUL.NEB INHALE ×5 (06:21→20:39)
[2024-10-31 08:03] LABS: Creatinine Clr Calc Pharmacy 82.3; Estimated Glomerular Filt Rate > 60
--- NOTE | 2024-10-31 09:16 | P.PNIM_ITS ---
Subjective Subjective Date of Service: 10/31/24 Interval History: Patient continues to be extremely hypoxic on highflow and non rebreather very anxious Physical Exam 2 Vital Signs: Vital Signs: Last Vital Signs Temp 97.4 F 10/31/24 07:09 Pulse 73 10/31/24 07:09 Resp 16 10/31/24 07:09 BP 118/61 10/31/24 07:09 Pulse Ox 86 L 10/31/24 07:09 O2 Del Method High Flow Nasal C annula 10/31/24 07:09 O2 Flow Rate 31 10/31/24 07:09 FiO2 70 10/31/24 07:09 Oxygen Flow Rate 4 10/20/24 17:35 BMI result Body Mass Index 30.4 Const: Other: General: AO to self, place, anxious Resp: blaise rhonchi CVS: S1,S2,RRR, trace leg edema GI: +BS, NT, no distention Skin: No rash Neuro: motor grossly intact Psych: anxious Objective Data Active Medications Acetaminophen (Acetaminophen 325 Mg Tablet) 975 mg PO Q6H PRN PRN Reason: Pain, Mild 1-3,fever,headache Last Admin: 10/23/24 18:16 Dose: 975 mg Documented By: TANMAY Albuterol/Ipratropium (Albuterol/Iprat 2.5/0.5mg 3 Ml Ampul.Neb) 3 ml INHALE RQ4H WHILE AWAKE [facility] Last Admin: 10/31/24 06:21 Dose: 3 ml Documented By: DANIELLA Amlodipine Besylate (Amlodipine Besylate 5 Mg Tablet) 5 mg PO DAILY [facility]; Protocol Last Admin: 10/30/24 08:25 Dose: 5 mg Documented By: TANMAY Donepezil HCl (Donepezil Hcl 5 Mg Tablet) 5 mg PO DAILY [facility] Last Admin: 10/30/24 08:26 Dose: 5 mg Documented By: TANMAY Escitalopram Oxalate (Escitalopram Oxalate 5 Mg Tablet) 5 mg PO DAILY [facility] Last Admin: 10/30/24 08:25 Dose: 5 mg Documented By: TANMAY Furosemide (Furosemide 40 Mg/4 Ml Vial) 40 mg IVPUSH DAILY [facility]; Protocol Last Admin: 10/30/24 08:26 Dose: 40 mg Documented By: TANMAY Heparin Sodium (Porcine) (Heparin Sodium,Porcine 5,000 Unit/Ml Vial) 5,000 unit SUBCUT Q12H [facility] Last Admin: 10/30/24 20:58 Dose: 5,000 unit Documented By: GAYLE Piperacillin Sod/Tazobactam (Sod 4.5 gm/ Sodium Chloride) 100 mls @ 200 mls/hr IV Q6H [facility] Last Infusion: 10/31/24 07:12 Dose: Infused Documented By: TANMAY Vancomycin HCl 1,000 mg/ (Sodium Chloride) 270 mls @ 270 mls/hr IV Q12H [facility] Last Infusion: 10/30/24 19:27 Dose: Infused Documented By: GAYLE Levothyroxine Sodium (Levothyroxine Sodium 88 Mcg Tablet) 88 mcg PO DAILY@0600 [facility] Last Admin: 10/31/24 06:11 Dose: 88 mcg Documented By: GAYLE Loperamide HCl (Loperamide Hcl 2 Mg Capsule) 2 mg PO Q4H PRN PRN Reason: Diarrhea Methylprednisolone Sodium Succinate (Methylprednisolone Sod Succ 40 Mg/Ml Vial) 40 mg IVPUSH Q8H [facility] Last Admin: 10/31/24 00:37 Dose: 40 mg Documented By: GAYLE Montelukast Sodium (Montelukast Sodium 10 Mg Tablet) 10 mg PO BEDTIME [facility] Last Admin: 10/30/24 20:58 Dose: 10 mg Documented By: GAYLE Multivitamins/Vitamin C (Multivitamin Tablet) 1 tab PO DAILY [facility] Last Admin: 10/30/24 08:26 Dose: 1 tab Documented By: TANMAY Sodium Chloride (0.9 % Sodium Chloride Flush 3 Ml Syringe) 3 ml IVFLUSH QSHIFT [facility] Last Admin: 10/31/24 00:36 Dose: 3 ml Documented By: GAYLE Vitamin D (Cholecalciferol (Vitamin D3) 25 Mcg Tablet) 25 mcg PO DAILY [facility] Last Admin: 10/30/24 08:26 Dose: 25 mcg Documented By: TANMAY Labs 10/29/24 07:28 10/31/24 07:28 Labs: Laboratory Results - last 24 hr 10/30/24 10/31/24 16:57 07:28 Hold Purple Top SEE NOTE Estim Creat Clear Calc 85.3 82.3 Estimated GFR > 60 > 60 Random Vancomycin 16.9 Assessment and Plan (1) Acute hypoxic respiratory failure: Status: Acute (2) Community acquired pneumonia: Status: Acute (3) Multifocal pneumonia: Status: Acute Plan 79yo F LTC SNF resident with dementia, HLD, hypothyrodism, HTN, asthma, and PUD sent in with hypoxia, dyspnea, and recently diagnosed pneumonia admitted for sepsis and acute hypoxic respiratory failure due to PNA PNA 10/20- vancomycin + Zosyn, MRSA swab positive, RPP negative, urinary antigens for Legionella and pneumococcus negative continue MRSA coverage as above, change to doxy when better. CXR 10/27 show persistent airspace disease and ? ARDS. Get pulmonology to do follw up acute hypoxic respiratory failure due to above supplemental O2, wean as tolerated; currently on HFNC 50% fiO2, 50 Lpm, wean off O2 to nasal canula if possible acute asthma exacerbation continue solu-medrol 40 mg q8, continue nebs + montelukast depression continue escitalopram low dose ativan for anxiety dementia continue donepezil GERD PPI hypothyroidism continue LT4 HTN amlodipine, furosemide Leukocytosis, likely d/t steroid, monitor VTE ppx enoxaparin dispo eventual return to LTC In my clinical judgment, the patient requires continued inpatient hospitalization for the following reasons: hypoxia, IV ABX prognosis is guarded, if continues to do poor will discuss hospice with family Quality Stroke Does the patient have a stroke diagnosis?: No VTE Prior VTE?: No VTE Risk Level:: Medical - moderate - high VTE Device Contraindication: N/A - Device Ordered VTE Drug Contraindication: N/A - Med Ordered
[2024-10-31] MEDS: vancomycin HCL 1,000 MG in 0.9 % Sodium Chloride 250 ML 270 MG IV (09:28)
[2024-10-31] MEDS: Multivitamin TABLET 1 TAB PO (09:29)
[2024-10-31] MEDS: Donepezil HCl 5 MG TABLET PO (09:29)
[2024-10-31] MEDS: Furosemide 40 MG/4 ML VIAL IVPUSH (09:29)
[2024-10-31] MEDS: Heparin Sodium,Porcine 5,000 UNIT/ML VIAL 5000 UNIT SUBCUT ×2 (09:29→21:03)
[2024-10-31] MEDS: LORazepam 0.5 MG TABLET 0.25 MG PO ×2 (09:29→21:04)
[2024-10-31] MEDS: amLODIPine Besylate 5 MG TABLET PO (09:29)
[2024-10-31] MEDS: Escitalopram Oxalate 5 MG TABLET PO (09:29)
[2024-10-31] MEDS: Cholecalciferol (Vitamin D3) 25 MCG TABLET PO (09:29)
--- NOTE | 2024-10-31 14:26 | MHC.CM.PN ---
Addendum entered by Maryann Navarrete 10/31/24 14:29: A clinical update has been sent to the facility. Original Note: Patient is not medically clear to discharge. She lives at [facility]. A PT eval has been done. The recommendation is LTC. Patient continues on High Flow Oxygen. Per MD rounds a goals of care meeting is planned. DP return to [facility] for LTC once medically cleared to discharge. She will transport via BLS.
--- NOTE | 2024-10-31 16:26 | MHC.SL.SWA ---
Speech Pathologist Impression: Moderate WOB upon minimal exertion with oral prep, consectutive pharynegal swallows Risk of Aspiration Due to: Respiratory compromise Poor ability to self monitor Question of thrush Dysphasia Diet Status: Liquid Consistency and Strategies for Safe Swallow: Liquid Intake Recommendation: [place] Thick Liquid Intake Strategies: Solid Food Consistency: Dietary Recommendations: Chopped/Advanced (NDD3) Additional Modifications to Solid Foods: Oral Medication Intake: Crushed with Puree Please contact the pharmacy regarding appropriate crushable or liquid drug formulations that are available whenever modified delivery is recommended. Compensatory Strategies and Precautions to be Taken for Safe Swallow: Supervision While Eating and Drinking for Safe Swallow: Foods to Avoid: Hard or overly sticky foods Swallowing Recommended Treatments: Recommendation for Speech: Inpatient Speech Therapy Comment: Oral phase of swallow generally WFL; pt experienced increased WOB when formulating bolus for soft solids. Pt sipped NTL and thins through straw with adequate oropharyngeal coordination. No overt s/s of aspiration observed with PO across length of lunch. Pt elicited one delayed cough occurred s/p deglution; considered WFL as pt able to clear efficiently upon cough. Pt noted she 'eats too fast'. REFRACTORY GRINDER OPERATOR provided education on physiological function of swallow, safety strategies, diet recommendations and POC. Pt verbalized understanding and agreed with recommendations. MD texted via secure text; RN consulted. Frequency/Duration: Daily M-F Date Range for Service Req: Timeline to reassess: Canvass Manager Clinican/Clinical Fellow: No Supervisory Statement: I have reviewed and agree with the student/clinical fellow's documentation: N/A Speech Language Pathologist: Megha Kirk M.S., [facility]3]-REFRACTORY GRINDER OPERATOR
[2024-10-31 17:09] LABS: Vancomycin Random 20.2 mcg/mL (15-20)
[2024-10-31] MEDS: Montelukast Sodium 10 MG TABLET PO (21:03)
[2024-11-01] VITALS (13 sets, daily range): BP systolic 109–160; BP diastolic 60–77; PULSE 67–85; RESP 0–20; TEMP 36.2–36.4; O2SAT 80–94
[2024-11-01] MEDS: methylPREDNISolone Sod Succ 40 MG/ML VIAL IVPUSH ×2 (00:05→09:31)
[2024-11-01] MEDS: Piperacillin Sodium/Tazobactam 4.5 GM in 0.9 % Sodium Chloride 100 ML IV ×3 (00:05→11:28)
[2024-11-01] MEDS: vancomycin HCL 750 MG in 0.9 % Sodium Chloride 250 ML 265 MG IV ×2 (00:10→09:29)
[2024-11-01] MEDS: Levothyroxine Sodium 88 MCG TABLET PO (06:34)
[2024-11-01 07:30] LABS: Creatinine Clr Calc Pharmacy 85.3; Estimated Glomerular Filt Rate > 60
--- NOTE | 2024-11-01 08:29 | P.ACPN_ITS ---
Advanced Care Planning Note Advanced Care Planning Note Time spent (in minutes): 15 Narrative: In light of the patient?s persistent and worsening hypoxia in the setting of pneumonia (PNA) and acute respiratory distress syndrome (ARDS), despite nearly 2 weeks of treatment with antibiotics, IV steroids, bronchodilators, high-flow oxygen plus non-rebreather mask (NRB), and IV diuretics, she has not shown any meaningful signs of recovery. I have had a [id number] conversation with her s on, Sumeet, and daughter, Gunjan, regarding treatment options, including continuing present care, escalating care, or transitioning to palliative/hospice care. They are open to hospice care, either in-house or back at [facility], where the patient resides. Problems Discussed (1) Acute hypoxic respiratory failure: (2) Community acquired pneumonia: (3) Multifocal pneumonia:
[2024-11-01] MEDS: Albuterol/Iprat 2.5/0.5MG 3 ML AMPUL.NEB INHALE ×2 (08:59→11:54)
[2024-11-01] MEDS: Furosemide 40 MG/4 ML VIAL IVPUSH (09:31)
[2024-11-01] MEDS: 0.9 % Sodium Chloride Flush 3 ML SYRINGE IVFLUSH (09:31)
[2024-11-01] MEDS: Heparin Sodium,Porcine 5,000 UNIT/ML VIAL 5000 UNIT SUBCUT (09:31)
[2024-11-01] MEDS: Escitalopram Oxalate 5 MG TABLET PO (09:32)
[2024-11-01] MEDS: Multivitamin TABLET 1 TAB PO (09:32)
[2024-11-01] MEDS: Donepezil HCl 5 MG TABLET PO (09:32)
[2024-11-01] MEDS: Cholecalciferol (Vitamin D3) 25 MCG TABLET PO (09:32)
[2024-11-01] MEDS: LORazepam 0.5 MG TABLET 0.25 MG PO (09:32)
[2024-11-01] MEDS: amLODIPine Besylate 5 MG TABLET PO (09:32)
--- NOTE | 2024-11-01 10:03 | P.PNIM_ITS ---
Subjective Subjective Date of Service: 11/01/24 Interval History: seen and examined this AM repeatedly asking to go home d/w her about her lung condition -- no clear if she fully understands goals of care d/w patients son/daughter by Dr. Engel this AM -- see ACP note Physical Exam 2 Vital Signs: Vital Signs: Last Vital Signs Temp 97.2 F 11/01/24 07:17 Pulse 77 11/01/24 09:01 Resp 18 11/01/24 09:01 BP 160/77 H 11/01/24 09:32 Pulse Ox 94 11/01/24 07:17 O2 Del Method High Flow Nasal C annula 11/01/24 07:17 O2 Flow Rate 68 11/01/24 07:17 FiO2 34 11/01/24 07:17 Oxygen Flow Rate 4 10/20/24 17:35 BMI result Body Mass Index 30.4 Const: Other: General - no acute distress, appears comfortable on HFNC Cardiovascular - regular rate and rhythm, S1-S2 Lungs - clear anteriorly Abdomen - soft, nontender, no rebound or guarding Extremities - no LE edema appreciated Neuro - awake and alert, oriented to self Objective Data Active Medications Acetaminophen (Acetaminophen 325 Mg Tablet) 975 mg PO Q6H PRN PRN Reason: Pain, Mild 1-3,fever,headache Last Admin: 10/23/24 18:16 Dose: 975 mg Documented By: TANMAY Albuterol/Ipratropium (Albuterol/Iprat 2.5/0.5mg 3 Ml Ampul.Neb) 3 ml INHALE RQ4H WHILE AWAKE PRN PRN Reason: Wheezing Last Admin: 10/31/24 09:29 Dose: 3 ml Documented By: LAZARUS Albuterol/Ipratropium (Albuterol/Iprat 2.5/0.5mg 3 Ml Ampul.Neb) 3 ml INHALE RQ4H WHILE AWAKE [facility] Last Admin: 11/01/24 08:59 Dose: 3 ml Documented By: TOMMY Amlodipine Besylate (Amlodipine Besylate 5 Mg Tablet) 5 mg PO DAILY [facility]; Protocol Last Admin: 11/01/24 09:32 Dose: 5 mg Documented By: TANMAY Donepezil HCl (Donepezil Hcl 5 Mg Tablet) 5 mg PO DAILY [facility] Last Admin: 11/01/24 09:32 Dose: 5 mg Documented By: TANMAY Escitalopram Oxalate (Escitalopram Oxalate 5 Mg Tablet) 5 mg PO DAILY [facility] Last Admin: 11/01/24 09:32 Dose: 5 mg Documented By: TANMAY Furosemide (Furosemide 40 Mg/4 Ml Vial) 40 mg IVPUSH DAILY [facility]; Protocol Last Admin: 11/01/24 09:31 Dose: 40 mg Documented By: TANMAY Heparin Sodium (Porcine) (Heparin Sodium,Porcine 5,000 Unit/Ml Vial) 5,000 unit SUBCUT Q12H [facility] Last Admin: 11/01/24 09:31 Dose: 5,000 unit Documented By: TANMAY Piperacillin Sod/Tazobactam (Sod 4.5 gm/ Sodium Chloride) 100 mls @ 200 mls/hr IV Q6H [facility] Last Infusion: 11/01/24 08:28 Dose: Infused Documented By: TANMAY Vancomycin HCl 750 mg/ Sodium (Chloride) 265 mls @ 265 mls/hr IV Q12H [facility] Last Admin: 11/01/24 09:29 Dose: 265 mls/hr Documented By: TANMAY Levothyroxine Sodium (Levothyroxine Sodium 88 Mcg Tablet) 88 mcg PO DAILY@0600 [facility] Last Admin: 11/01/24 06:34 Dose: 88 mcg Documented By: MERVIN Loperamide HCl (Loperamide Hcl 2 Mg Capsule) 2 mg PO Q4H PRN PRN Reason: Diarrhea Lorazepam (Lorazepam 0.5 Mg Tablet) 0.25 mg PO Q6H PRN PRN Reason: Anxiety Last Admin: 11/01/24 09:32 Dose: 0.25 mg Documented By: TANMAY Methylprednisolone Sodium Succinate (Methylprednisolone Sod Succ 40 Mg/Ml Vial) 40 mg IVPUSH Q8H [facility] Last Admin: 11/01/24 09:31 Dose: 40 mg Documented By: TANMAY Montelukast Sodium (Montelukast Sodium 10 Mg Tablet) 10 mg PO BEDTIME [facility] Last Admin: 10/31/24 21:03 Dose: 10 mg Documented By: MERVIN Multivitamins/Vitamin C (Multivitamin Tablet) 1 tab PO DAILY [facility] Last Admin: 11/01/24 09:32 Dose: 1 tab Documented By: TANMAY Pharmacy Consult (Consult Rx Vancomycin Dosing) 1 each MISCELLANE DAILY PRN PRN Reason: Consult order Sodium Chloride (0.9 % Sodium Chloride Flush 3 Ml Syringe) 3 ml IVFLUSH QSHIFT [facility] Last Admin: 11/01/24 09:31 Dose: 3 ml Documented By: TANMAY Vitamin D (Cholecalciferol (Vitamin D3) 25 Mcg Tablet) 25 mcg PO DAILY [facility] Last Admin: 11/01/24 09:32 Dose: 25 mcg Documented By: TANMAY Labs 10/29/24 07:28 11/01/24 06:01 Labs: Laboratory Results - last 24 hr 10/31/24 11/01/24 16:51 06:01 Hold Purple Top SEE NOTE Estim Creat Clear Calc 85.3 Estimated GFR > 60 Random Vancomycin 20.2 H Assessment and Plan (1) Acute hypoxic respiratory failure: Status: Acute (2) Community acquired pneumonia: Status: Acute (3) Multifocal pneumonia: Status: Acute Plan 79yo F LTC SNF resident with dementia, HLD, hypothyrodism, HTN, asthma, and PUD sent in with hypoxia, dyspnea, and recently diagnosed pneumonia admitted for sepsis and acute hypoxic respiratory failure due to PNA acute hypoxic respiratory failure due to above remains on HFNC CXR from 10/30 showing diffuse bilateral patchy interstitial and airspace disease goals of care d/w patients son/daughter held this AM by Dr. Engel -- considering transition to hospice; CM notified PNA - cannot rule out MRSA pneumonia 10/20- vancomycin + Zosyn, MRSA swab positive, RPP negative, urinary antigens for Legionella and pneumococcus negative will continue for now acute asthma exacerbation continue solu-medrol 40 mg q8, continue nebs + montelukast depression continue escitalopram low dose ativan for anxiety dementia continue donepezil GERD PPI hypothyroidism continue LT4 HTN amlodipine, furosemide Leukocytosis, likely d/t steroid, monitor VTE ppx enoxaparin Quality Stroke Does the patient have a stroke diagnosis?: No VTE Prior VTE?: No VTE Risk Level:: Medical - moderate - high VTE Device Contraindication: N/A - Device Ordered VTE Drug Contraindication: N/A - Med Ordered
[2024-11-01] MEDS: Acetaminophen 325 MG TABLET 975 MG PO (10:17)
--- NOTE | 2024-11-01 12:37 | PM.EVENT ---
Event Note Date of Service: 11/01/24 Event Note: Met with the patient's family bedside to discuss goals of care. They had discussed this AM with Dr Engel and were considering hospice. They asked me my medical opinion and I said I was in agreement with Dr. Engel's assessment -- that she was hospice appropriate. They would like to transition her to hospice at SNF if possible but understand that may not be safely possible if her symptoms / oxygen requirements remain prohibitive. Status changed to LIMITED RADIOLOGY TECHNICIAN. Will transition to low flow nasal cannula. IV morphine for pain/respiratory distress IV ativan for anxiety RN/Respiratory/Case mgmt notified. Time Spent With Patient Time: Total time managing care of this patient today ____ minutes.
--- NOTE | 2024-11-01 14:42 | MHC.SL.SWA ---
Dysphasia Diet Status: UPGRADE liquids Liquid Consistency and Strategies for Safe Swallow: Liquid Intake Recommendation: Thin Liquid Intake Strategies: Small Sips Solid Food Consistency: Dietary Recommendations: Chopped/Advanced (NDD3) Oral Medication Intake: Crushed with Puree Please contact the pharmacy regarding appropriate crushable or liquid drug formulations that are available whenever modified delivery is recommended. Compensatory Strategies and Precautions to be Taken for Safe Swallow: Sitting Upright (90 deg) Small Bites and Sips Supervision While Eating and Drinking for Safe Swallow: Direct Supervision (1:1) Swallowing Recommended Treatments: Compens. Strategy Educat. Recommendation for Speech: Inpatient Speech Therapy Comment: Recommend UPGRADE to THIN liquids. No solid trials given on this day. Continue w/ yesterday's INVASIVE CARDIOVASCULAR TECHNOLOGIST recommendations of chopped/advanced solids (NDD3) and pills crushed in puree. Frequency/Duration: Daily M-F Chute Puller Clinican/Clinical Fellow: No Supervisory Statement: I have reviewed and agree with the student/clinical fellow's documentation: N/A Speech Language Pathologist: Paty Vasquez M.A., CCC-INVASIVE CARDIOVASCULAR TECHNOLOGIST
[2024-11-01] MEDS: Morphine Sulfate 2 MG/ML CARTRIDGE IVPUSH (14:47)
[2024-11-01] MEDS: Scopolamine 1.5 MG PATCH.TD.3 EAR-BEHIND (14:47)
[2024-11-01] MEDS: diazePAM 10 MG/2 ML CARTRIDGE 5 MG IVPUSH (15:27)
--- NOTE | 2024-11-01 16:13 | MHC.CM.PN ---
Goals of care meeting yesterday. The discharge plan is Hospice. Spoke with Pts adult children via phone re hospice consult. The plan was hospice @ [facility]. A referral was sent to [facility] for an Informational meeting. [facility]. T/W met with the family this afternoon. They have decided on hospice at the [facility]. A referral has been sent to the Hospice house. A call was received from the [facility]. They anticipate a vacancy the end of this week. [facility].
[2024-11-01] MEDS: Morphine Sulfate 2 MG/ML CARTRIDGE 4 MG IVPUSH ×2 (18:26→20:14)
[2024-11-01] MEDS: diazePAM 10 MG/2 ML CARTRIDGE 7.5 MG IVPUSH (20:25)
[2024-11-02] VITALS (9 sets, daily range): RESP 16–28
[2024-11-02] MEDS: Morphine Sulfate 2 MG/ML CARTRIDGE 4 MG IVPUSH ×4 (02:25→21:53)
[2024-11-02] MEDS: 0.9 % Sodium Chloride Flush 3 ML SYRINGE IVFLUSH ×2 (09:12→18:03)
[2024-11-02] MEDS: diazePAM 10 MG/2 ML CARTRIDGE 5 MG IVPUSH ×2 (10:59→18:02)
--- NOTE | 2024-11-02 11:01 | MHC.CM.PN ---
Per family does not want patient to return to [place] for Hospice. If she is able to discharge it will be to [facility] for hospice. states that the patient is [place]ATINU[place] here. DP [facility] via S.
[2024-11-02] MEDS: Morphine Sulfate 2 MG/ML CARTRIDGE IVPUSH ×3 (11:03→20:31)
--- NOTE | 2024-11-02 12:07 | P.PNIM_ITS ---
Subjective Subjective Date of Service: 11/02/24 Interval History: seen and evaluated family at bedside awake with stimulation, reporting pain in back and knee Review of Systems Review of Systems: Yes Other Physical Exam 2 Vital Signs: Vital Signs: Last Vital Signs Temp 97.6 F 11/01/24 15:41 Pulse 85 11/01/24 15:41 Resp 22 H 11/02/24 11:03 BP 109/60 11/01/24 15:41 Pulse Ox 80 L 11/01/24 15:41 O2 Del Method Oxymask 11/01/24 15:41 O2 Flow Rate 2 11/01/24 15:41 FiO2 34 11/01/24 10:58 Oxygen Flow Rate 4 10/20/24 17:35 BMI result Body Mass Index 30.4 Const: Other: looks comfortable not in distress Objective Data Active Medications Acetaminophen (Acetaminophen 325 Mg Tablet) 975 mg PO Q6H PRN PRN Reason: Pain, Mild 1-3,fever,headache Last Admin: 11/01/24 10:17 Dose: 975 mg Documented By: TANMAY Albuterol/Ipratropium (Albuterol/Iprat 2.5/0.5mg 3 Ml Ampul.Neb) 3 ml INHALE RQ4H WHILE AWAKE PRN PRN Reason: Wheezing Last Admin: 10/31/24 09:29 Dose: 3 ml Documented By: LAZARUS Diazepam (Diazepam 10 Mg/2 Ml Cartridge) 5 mg IVPUSH Q6H [facility] Last Admin: 11/02/24 10:59 Dose: 5 mg Documented By: KOBY Diazepam (Diazepam 10 Mg/2 Ml Cartridge) 7.5 mg IVPUSH Q4H PRN PRN Reason: Anxiety/dyspnea/comfort Donepezil HCl (Donepezil Hcl 5 Mg Tablet) 5 mg PO DAILY [facility] Last Admin: 11/02/24 09:12 Dose: Not Given Documented By: KOBY Non-Admin Reason: TOWERMAN Escitalopram Oxalate (Escitalopram Oxalate 5 Mg Tablet) 5 mg PO DAILY [facility] Last Admin: 11/02/24 09:12 Dose: Not Given Documented By: KOBY Non-Admin Reason: TOWERMAN Loperamide HCl (Loperamide Hcl 2 Mg Capsule) 2 mg PO Q4H PRN PRN Reason: Diarrhea Morphine Sulfate (Morphine Sulfate 2 Mg/Ml Cartridge) 2 mg IVPUSH Q4H KAROLYN; Protocol Last Admin: 11/02/24 11:03 Dose: 2 mg Documented By: KOBY Morphine Sulfate (Morphine Sulfate 2 Mg/Ml Cartridge) 4 mg IVPUSH Q2H PRN; Protocol PRN Reason: pain/shortness of breath/comfo Scopolamine (Scopolamine 1.5 Mg Patch.Td.3) 1.5 mg EAR-BEHIND Q72H [facility] Last Admin: 11/01/24 14:47 Dose: 1.5 mg Documented By: TANMAY Sodium Chloride (0.9 % Sodium Chloride Flush 3 Ml Syringe) 3 ml IVFLUSH QSHIFT [facility] Last Admin: 11/02/24 09:12 Dose: 3 ml Documented By: KOBY Labs 10/29/24 07:28 11/01/24 06:01 Assessment and Plan (1) Multifocal pneumonia: Status: Acute (2) Acute hypoxic respiratory failure: Status: Acute Plan 79yo F LTC SNF resident with dementia, HLD, hypothyrodism, HTN, asthma, and PUD sent in with hypoxia, dyspnea, and recently diagnosed pneumonia admitted for sepsis and acute hypoxic respiratory failure due to PNA acute hypoxic respiratory failure due to pneumonia and sepsis Was treated with vancomycin + Zosyn along with IV steroids and nebulizers, MRSA swab positive and remained on high flow with no improvement goals of care d/w patients son/daughter by Dr. Engel -- transition to hospice care Morphine KAROLYN and PRN for pain and dyspnea Valium IV Karolyn and PRN for anxiety and restlessness Scopolamine for secretions CM working on finding hospice placement Support offered to family The patient will need overnight stay for comfort care Quality Stroke Does the patient have a stroke diagnosis?: No VTE Prior VTE?: No VTE Risk Level:: Medical - moderate - high VTE Device Contraindication: N/A - Device Ordered VTE Drug Contraindication: N/A - Med Ordered
--- NOTE | 2024-11-02 13:25 | MHC.SLORD ---
Speech Language Pathology Order Status: Pt is VISUAL AID EXPERT, LICENSED PHARMACIST intervention no longer indicated. Order discontinued.
--- NOTE | 2024-11-02 20:30 | PC.NURSE ---
Pt [employer] presumed care from 7pm- 2330. Admin scheduled pain meds. Pt repo q2 and as needed. 2L oxymask for comfort. Pt resting quietly with family at bedside. Around 2300 daughter called staff in to say her mother had passed. This RN auscultated for lung and heart sounds, none found. Doctor called to bedside to pronounce. Overnight tar distillation supervisor made aware. daughter collected patients belongings. Post mortem care preformed and patient brought down to the [facility].
--- NOTE | 2024-11-02 23:33 | PM.EVENT ---
Event Note Date of Service: 11/02/24 Event Note: I was called to patient's bedside to pronounce the patient. No spontaneous movements were present. There was no response to verbal or tactile stimulus. Pupils were mid dilated and fixed. No breath sounds were appreciated over either lung field. No carotid pulses were palpable. No heart sounds were auscultated over entire precordium. Patient was on comfort measures only. Patient pronounced on 11/02/2024 at 23:25. Condolences offered to daughter at bedside. certificate completed. Time Spent With Patient Time: Total time managing care of this patient today ____ minutes.
--- NOTE | 2024-11-03 08:21 | PM.DS ---
DS: Providers Provider Date of Service: 11/02/24 Date of admission: 10/20/24 19:59 Date of discharge: 11/02/24 Primary care physician: Morgan Hancock MD Consults: 10/21/24 04:30 Consult to Wound Care Routine Reason for consultation: Nonblanchable redness coccyx 10/28/24 11:25 Consult to Pulmonology Routine Consulting Provider: [facility] Pulmonology [facility] Reason for consultation: diffuse pna, ?ARDS, on Abx, steroid, Hiflo any additional management input? Has provider been notified: No DS: Diagnosis Discharge Diagnosis (1) Multifocal pneumonia: Status: Acute (2) Acute hypoxic respiratory failure: Status: Acute (3) Pulmonary edema: Status: Acute (4) Community acquired pneumonia: Status: Acute (5) Urinary tract infection: Status: Acute DS: Summary Hospital Course Hospital Course: Admission note HPI Christen Rubio is 79 years old woman with past medical history significant for dementia, hyperlipidemia, hypothyroidism, essential hypertension, asthma and PUD/GERD was brought to the emergency department from nursing facility due to worsening shortness on breath and low oxygen saturation, 80s on room air. He is a vague historian but she was able to answer simple questions. She denied any chest pain, cough, headache, sore throat, nausea or abdominal pain. She also denied any pain with urination. She denied tobacco smoking, alcohol abuse or illicit drug use. Paperwork from nursing facility: CXR done yesterday showed right upper infiltrates, small left pleural effusion, possible superjacent atelectasis and large hiatal hernia. Treatment with ceftriaxone 1 g IM, ceftriaxone and prednisone was initiated. In the ED, she was found to have an oxygen saturation 70% on room air and tachypnea. There is no tachycardia or fever. Blood workup was remarkable for leukocytosis of 17.5, hemoglobin and platelets are normal. There is mild lactic acidosis of 2.7 that normalized. Venous blood gas showed no respiratory acidosis. There are no significant electrolyte imbalances. Renal and liver functions are normal. BNP is only 116 and lipase is normal. Viral testing for influenza, RSV and COVID-19 is negative. ECG showed mild tachycardia, 103 beats per minute and no acute ischemic changes. CXR showed consolidation in the right upper lobe concerning for pneumonia, small pleural effusions with bilateral pulmonary opacities: Pulmonary edema vs multifocal pneumonia. ED tx: Zosyn 3.375 g IV, NS bolus 2334 mL, vancomycin 2 g, and Tylenol 1 g IV. Hospital course The patient was admitted for acute hypoxic respiratory failure due to pneumonia and sepsis Was treated with vancomycin + Zosyn along with IV steroids and nebulizers, MRSA swab positive and remained on high flow with no improvement goals of care d/w patients son/daughter by Dr. Engel -- transition to hospice care on 11/01/2024. Morphine KAROLYN and PRN for pain and dyspnea Valium IV Karolyn and PRN for anxiety and restlessness Scopolamine for secretions CM working on finding hospice placement. Support offered to family The patient on 11/02/2024 at 23:25 Time Attestation Discharge Coordination Time (in mins): 42 Quality: Safe Use of Opioids Does Pt have an Active Cancer Diagnosis on the Problem List?: No Quality: Stroke Does the patient have a stroke diagnosis?: No Physical Exam Vital Signs: Vital Signs: Last Vital Signs Temp 97.6 F 11/01/24 15:41 Pulse 85 11/01/24 15:41 Resp 28 H 11/02/24 19:20 BP 109/60 11/01/24 15:41 Pulse Ox 80 L 11/01/24 15:41 O2 Del Method Oxymask 11/01/24 15:41 O2 Flow Rate 2 11/01/24 15:41 FiO2 34 11/01/24 10:58 Oxygen Flow Rate 4 10/20/24 17:35 BMI result Body Mass Index 30.4 Const: Other: DS: Data Imaging Chest x-ray: Radiologist's impression: ITS Impressions Chest X-Ray 10/27/24 10:31 IMPRESSION: Diffuse multifocal airspace opacities throughout the lungs consistent with pneumonia, ARDS, or pulmonary edema without significant change. Large hiatal hernia. Electronically signed by: Gomez Lock MD 10/27/2024 12:35 PM EDT RP Discharge Plan Discharge Date/Time: 11/02/24 23:25 Patient Disposition: Discharge Diagnosis: Pneumonia Referrals: Morgan Hancock MD [Primary Care Provider] - 1 Week Discharge Medications: No Action omeprazole 20 mg Capsule,Delayed Release(Dr/Ec) 20 mg PO DAILY vitamin B complex Capsule 1 cap PO DAILY cholecalciferol (vitamin D3) [Vitamin D3] 25 mcg (1,000 unit) Capsule 25 mcg PO DAILY donepezil 5 mg Tablet 5 mg PO DAILY levothyroxine 88 mcg Tablet 88 mcg PO DAILY@0600 amlodipine 5 mg Tablet 5 mg PO DAILY Qty: 30 0RF Protocol: Hold for SBP< HOLD for SBP < : 90 acetaminophen 325 mg Tablet 325 mg PO Q8H PRN (Reason: Mild Pain (Scale Score 1-4)) lidocaine 4 % Adhesive Patch,Medicated 1 patch TOPICAL BID PRN (Reason: lower back pain) albuterol sulfate 2.5 mg /3 mL (0.083 %) Solution For Nebulization 2.5 mg INHALATION Q4H PRN (Reason: Wheezing) citalopram 10 mg Tablet 10 mg PO DAILY ferrous sulfate 325 mg (65 mg iron) Tablet 325 mg PO Q48H montelukast [Singulair] 10 mg Tablet 10 mg PO DAILY furosemide 20 mg Tablet 20 mg PO DAILY Rx Instructions: FOR 3 DAYS STARTING ON 10/19, STOPPING ON 10/22 fluticasone propion-salmeterol [Advair Diskus] 100-50 mcg/dose Blister With Device 1 inh INHALATION BID albuterol sulfate 90 mcg/actuation Hfa Aerosol Inhaler 2 puff INHALATION Q4-6H PRN (Reason: Shortness Of Breath Or Wheezing) fluticasone propionate [Flonase] 50 mcg/actuation [place],Suspension 1 spray INTRANASAL BID PRN (Reason: stuffy nose) Rx Instructions: administer into each nostril diclofenac sodium 1 % Gel 4 g TOPICAL QID Rx Instructions: apply to single knee, ankle, foot; for foot includes sole/toes/top of foot Probiotic 10 billion cell Capsule 10,000 mmu cells PO BID Rx Instructions: x 10 days, stop date 10/30/24 cefuroxime axetil 500 mg tablet 1,000 mg PO DAILY Rx Instructions: for 7 days, stop date 10/26/24 prednisone 10 mg Tablet 10 mg PO DIRECTED Rx Instructions: STARTING ON 10/19/24 TAKE 60 MG DAILY FOR 3 DAYS, 10/22/24 TAKE 50 MG DAILY FOR 3 DAYS, 10/26/24 TAKE 40 MG FOR 3 DAYS, 10/29/24 TAKE 30 MG BY MOUTH DAILY FOR 3 DAYS. 11/01/24 TAKE 20 MG DAILY FOR 3 DAYS THEN ON 11/04/24 TAKE 10 MG DAILY, THERE IS NO END DAY TO THE TAPER, 10 MG DAILY AFTER THIS. azithromycin [Zithromax Z-Herrera] 250 mg Tablet 250 mg PO DAILY Rx Instructions: STARTED ON 10/20/2024 ENDS ON 10/24/24 Print Language: Czech Discharge Date/Time: 11/03/24 02:22
[2024-11-12 14:15] LABS: Atypical Lymph Absolute Manual 0.2 x10*3/uL; Atypical Lymphs Percent Manual 1 % (0-6); Band Neutrophils Percent 2 % (3-5); Lymphocytes Absolute Manual 0.7 X10*3/uL (1.2-4.9); Lymphocytes Percent Manual 3 % (20-40); Metamyelocytes Absolute 0.2 X10*3/uL; Metamyelocytes Percent 1 %; Neutrophils Absolute Manual 22.5 X10*3/uL (2.0-8.3); Neutrophils Percent Manual 93 % (45-73)
[2024-11-12 14:16] LABS: Burr Cells 1+ (0-2) /OIF; Platelet Estimate NORMAL (NORMAL); Platelet Morphology Comment NORMAL; RBC Morphology NOTED; Toxic Granulation PRESENT; Toxic Vacuolation PRESENT
== END 2024-11-03 02:22 | disposition expired | DRG 871 ==
LOC: HO.ED 19:24 → HO.IMC 20:24
PROVIDERS: Family Medicine; Internal Medicine; Physician Assistant; Admitting Provider Internal Medicine; Emergency Provider Emergency Medicine; PCP Family Medicine; Visit Provider Student in an Organized Health Care Education/Training Program
DX: A41.9 Sepsis, unspecified organism (principal); J15.212 Pneumonia due to Methicillin resistant Staphylococcus aureus; J96.01 Acute respiratory failure with hypoxia; J45.41 Moderate persistent asthma with (acute) exacerbation; I10 Essential (primary) hypertension; Z66 Do not resuscitate; E03.9 Hypothyroidism, unspecified; Z51.5 Encounter for palliative care; F32.A Depression, unspecified; G31.83 Neurocognitive disorder with Lewy bodies; F02.80 Dementia in other diseases classified elsewhere, unspecified severity, without behavioral disturbance, psychotic disturbance, mood disturbance, and anxiety; K21.9 Gastro-esophageal reflux disease without esophagitis; Z20.822 Contact with and (suspected) exposure to COVID-19; Z79.890 Hormone replacement therapy; Z79.899 Other long term (current) drug therapy
CPT/HCPCS: 0241U; 36415; 71045; 80048; 80051; 80053; 80202; 81001; 81003; 82565; 82803; 83605; 83690; 83735; 83880; 84145; 84443; 84484; 85007; 85025; 85027; 87040; 87449; 87493; 87507; 87633; 87640; 87641; 87899; 92526; 92610; 93005; 94640; 97162; 99285; J0131; J1644; J1938; J2270; J2470; J2543; J2919; J3360; J3370; J3371; J3475

== ENCOUNTER → 2024-10-20 17:50 | Outpatient (BNV) | payer MEDICARE, SELFPAY | PROVIDERS: Admitting Provider Internal Medicine; Emergency Provider Emergency Medicine; Visit Provider Internal Medicine Cardiovascular Disease | DX: I49.1 Atrial premature depolarization (principal); R00.0 Tachycardia, unspecified | CPT/HCPCS: 93010 ==

== ENCOUNTER → 2024-10-20 18:36 | Outpatient (BNV) | payer MEDICARE, SELFPAY | PROVIDERS: Admitting Provider Internal Medicine; Emergency Provider Emergency Medicine; Visit Provider Radiology Neuroradiology | DX: R06.00 Dyspnea, unspecified (principal) | CPT/HCPCS: 71045 ==

== ENCOUNTER 2024-10-20 19:59 | Outpatient (BNV) | payer MEDICARE, SELFPAY | END 2024-10-30 08:45 | PROVIDERS: Admitting Provider Internal Medicine; Emergency Provider Emergency Medicine; PCP Family Medicine; Visit Provider Radiology Diagnostic Radiology | DX: J84.9 Interstitial pulmonary disease, unspecified (principal) | CPT/HCPCS: 71045 ==

== ENCOUNTER 2024-10-20 19:59 | Outpatient (BNV) | payer MEDICARE, SELFPAY | END 2024-10-22 08:30 | PROVIDERS: Admitting Provider Internal Medicine; Emergency Provider Emergency Medicine; Visit Provider Specialist | DX: J18.9 Pneumonia, unspecified organism (principal) | CPT/HCPCS: 71045 ==

== ENCOUNTER 2024-10-20 19:59 | Outpatient (BNV) | payer MEDICARE, SELFPAY | END 2024-10-27 10:31 | PROVIDERS: Admitting Provider Internal Medicine; Emergency Provider Emergency Medicine; PCP Family Medicine; Visit Provider Radiology Diagnostic Radiology | DX: J69.0 Pneumonitis due to inhalation of food and vomit (principal) | CPT/HCPCS: 71045 ==

== ENCOUNTER → 2024-10-20 19:59 | Outpatient (BNV) | payer MEDICARE, SELFPAY | PROVIDERS: Admitting Provider Internal Medicine; Emergency Provider Emergency Medicine; PCP Family Medicine; Visit Provider Internal Medicine Pulmonary Disease | DX: J96.01 Acute respiratory failure with hypoxia (principal); J18.9 Pneumonia, unspecified organism; J81.1 Chronic pulmonary edema | CPT/HCPCS: 99223 ==

== ENCOUNTER → 2024-10-20 19:59 | Outpatient (BNV) | payer MEDICARE, SELFPAY | PROVIDERS: Admitting Provider Internal Medicine; Emergency Provider Emergency Medicine; Visit Provider Internal Medicine | DX: J96.01 Acute respiratory failure with hypoxia (principal); J18.9 Pneumonia, unspecified organism | CPT/HCPCS: 99223; 99231; 99232; 99233; 99497; 99499 ==